=== PATIENT | male | born 1960 | race Caucasian/White ===

== ENCOUNTER 2017-04-08 18:24 | Emergency (ER) | payer OTHER ==
[~2017-04-08] VITALS: Ht 175.3 cm; Wt 105.0 kg
[~2017-04-08 18:24] MED LIST: ALEV220C; AMLO10 PO; GLUC1000 PO; GLUCOMETER XX; GLYB1TAB51 PO; LISI20 PO; METO50TA PO; OMEP20.62 PO; ST J81CH PO; SULF-154 PO
[2017-04-08 18:26] VITALS: BP 201/94; PULSE 98; RESP 16; TEMP 98.4; O2SAT 98
[2017-04-08] MEDS ORDERED: PLAV75TA29 PO (18:56)
[2017-04-08] MEDS ORDERED: GLIP10TA6 PO (18:56)
[2017-04-08] MEDS ORDERED: FURO1TAB60 PO (18:56)
[2017-04-08] MEDS ORDERED: ASPI-516 CHEW (18:56)
[2017-04-08] MEDS ORDERED: CLIN300C5 PO (18:56)
[2017-04-08] MEDS ORDERED: LISI40TA PO (18:56)
[2017-04-08] MEDS ORDERED: METF1000 PO (18:56)
[2017-04-08] MEDS ORDERED: OMEP20TA93 PO (18:56)
--- NOTE | 2017-04-08 19:01 | PD ---
HPI Chief Complaint: Skin Problem Time Seen by Provider: 18:39 Travel History International Travel<30 days: No Contact w/Intl Traveler<30days: No Traveled to known affect area: No History of Present Illness HPI 57-year-old male complains of cellulitis of the sole of the left foot. He's been on clindamycin. He denies fever he denies pain. He has to work tomorrow and wants to be sure there is no worsening of the infection. He reports using soap water to clean daily. Location skin. Timing constant. No modifying factor. PFSH Past Medical History Hx Anticoagulant Therapy: Yes (PLAVIX AND ASA) Arthritis: Yes Asthma: Yes (LONG TIME AGO) Cancer: No Cardiovascular Problems: Yes Diabetes: Yes Diminished Hearing: No Endocrine: No Genitourinary: Yes Immune Disorder: No Kidney Stones: Yes Musculoskeletal: Yes Neurologic: Yes Psychiatric: No Reproductive: No Respiratory: Yes Past Surgical History Eye Surgery: Yes (1971) Social History Alcohol Use: Yes (BEER, OCCASIONALLY) Tobacco Use: No Substance Use: No Allergies-Medications (Allergen,Severity, Reaction): Coded Allergies: codeine (Verified Allergy, Severe, HIVES, 04/08/17) sulfamethoxazole (Verified Allergy, Severe, HIVES, 04/08/17) trimethoprim (Verified Allergy, Severe, HIVES, 04/08/17) Reported Meds & Prescriptions Reported Meds & Active Scripts Active Reported Metformin (Metformin HCl) 1,000 Mg Tab 1,000 Mg PO BIDPC Aspirin 81 Mg Chew 81 Mg CHEW DAILY Plavix (Clopidogrel Bisulfate) 75 Mg Tab 75 Mg PO DAILY Lisinopril 40 Mg Tab 40 Mg PO DAILY Glipizide 10 Mg Tab 10 Mg PO DAILY Take 30 minutes before a meal Omeprazole 20 Mg Tab 20 Mg PO DAILY Lasix (Furosemide) 40 Mg Tab 40 Mg PO BID Clindamycin (Clindamycin HCl) 300 Mg Cap 300 Mg PO Q6H Review of Systems Except as stated in HPI: all other systems reviewed are Neg Physical Exam Narrative GENERAL: 57-year-old male well-nourished well-developed no acute distress SKIN: Warm and dry. Along the sole of the left foot there is about a 6 cm round somewhat ulcerative wound without purulent discharge or warmth or evidence of cellulitis otherwise. HEAD: Atraumatic. Normocephalic. EYES: Pupils equal and round. No scleral icterus. No injection or drainage. ENT: No nasal bleeding or discharge. Mucous membranes pink and moist. NECK: Trachea midline. No JVD. CARDIOVASCULAR: Regular rate and rhythm. RESPIRATORY: No accessory muscle use. Clear to auscultation. Breath sounds equal bilaterally. GASTROINTESTINAL: Abdomen soft, non-tender, nondistended. Hepatic and splenic margins not palpable. MUSCULOSKELETAL: Extremities without clubbing, cyanosis, or edema. No obvious deformities. NEUROLOGICAL: Awake and alert. No obvious cranial nerve deficits. Motor grossly within normal limits. Five out of 5 muscle strength in the arms and legs. Normal speech. PSYCHIATRIC: Appropriate mood and affect; insight and judgment normal. Data Data Last Documented VS Vital Signs Date Time Temp Pulse Resp B/P (MAP) Pulse Ox O2 Delivery O2 Flow Rate FiO2 04/08/17 19:08 90 16 179/93 (121) 98 04/08/17 18:26 98.4 Orders Orders Ed Discharge Order (04/08/17 19:04) [facility] Medical Decision Making Medical Screen Exam Complete: Yes Emergency Medical Condition: Yes Medical Record Reviewed: Yes Differential Diagnosis Cellulitis, abscess, sepsis, vascular disease Narrative Course The patient should continue taking clindamycin. The wound does not appear to be cellulitic at this time. Ongoing care instructions provided Diagnosis Primary Impression: Cellulitis Qualified Codes: L03.116 - Cellulitis of left lower limb Referrals: Christine Coker Jr., MD 2 days Disposition: 01 DISCHARGE HOME Condition: Stable Brando Shah MD Apr 08, 2017 19:01
[2017-04-08 19:08] VITALS: BP 179/93
== END 2017-04-08 19:16 | disposition home or self-care (01) ==
LOC: PHED 18:24
DX: L03.116 Cellulitis of left lower limb (principal); J45.909 Unspecified asthma, uncomplicated; E11.9 Type 2 diabetes mellitus without complications; Z79.01 Long term (current) use of anticoagulants
CPT/HCPCS: 99282

== ENCOUNTER 2017-05-10 11:47 | Inpatient (IN) | payer OTHER ==
[~2017-05-10] VITALS: Ht 177.8 cm; Wt 106.0 kg
[~2017-05-10 11:47] MED LIST changes: -ALEV220C; -AMLO10 PO; +ASPI-516 CHEW; +CLIN300C5 PO; +FURO1TAB60 PO; +GLIP10TA6 PO; -GLUC1000 PO; -GLUCOMETER XX; -GLYB1TAB51 PO; -LISI20 PO; +LISI40TA PO; +METF1000 PO; -METO50TA PO; -OMEP20.62 PO; +OMEP20TA93 PO; +PLAV75TA29 PO; -ST J81CH PO; -SULF-154 PO
[2017-05-10 11:48] VITALS: BP 160/70; PULSE 107; RESP 18; TEMP 98; O2SAT 98
[2017-05-10] MEDS ORDERED: SODIUM CHLORIDE 0.9% FLUSH 10 ML FLUSH IVF PRN (12:00)
[2017-05-10 12:32] VITALS: O2SAT 99
--- NOTE | 2017-05-10 12:37 | PD ---
HPI Chief Complaint: Skin Problem Time Seen by Provider: 11:59 Travel History International Travel<30 days: No Contact w/Intl Traveler<30days: No Traveled to known affect area: No History of Present Illness HPI This is a 57-year-old male with a history of diabetes presents emergency department for evaluation of bilateral foot ulcers right greater than left, the patient states that his toes had significantly changed in color for the past day and a half and rapidly worsening. He went to his travel registered nurse nicu Dr. Connors who referred him immediately to the emergency department with instructions to admit start antibiotics and consult inpatient podiatry. Patient states he is just having some aching in his feet, denies any fevers denies any discharge. States that he works on his feet all day and that he thinks the friction in his shoes is rubbing up against his feet. Denies any particular injury. States symptoms are rapidly worsening, bilateral feet, context and associated signs symptoms as above. PFSH Past Medical History Hx Anticoagulant Therapy: Yes (Plavix) Arthritis: Yes Asthma: Yes (LONG TIME AGO) Cancer: No Cardiovascular Problems: Yes (HTN) Diabetes: Yes Diminished Hearing: No Endocrine: No Genitourinary: Yes Headaches: Yes Hypertension: Yes Immune Disorder: No Kidney Stones: Yes Musculoskeletal: Yes Neurologic: Yes Psychiatric: No Reproductive: No Respiratory: Yes Past Surgical History Eye Surgery: Yes (1971) Other Surgery: Yes (angiograms) Social History Alcohol Use: Yes (BEER, OCCASIONALLY) Tobacco Use: No (quit 2012) Substance Use: No Allergies-Medications (Allergen,Severity, Reaction): Coded Allergies: codeine (Verified Allergy, Severe, HIVES, 05/10/17) sulfamethoxazole (Verified Allergy, Severe, HIVES, 05/10/17) trimethoprim (Verified Allergy, Severe, HIVES, 05/10/17) Reported Meds & Prescriptions Reported Meds & Active Scripts Active Reported Dicloxacillin (Dicloxacillin Sodium) 500 Mg Cap 500 Mg PO QID Naproxen 250 Mg Tab 250 Mg PO BID PRN Aleve Arthritis (Naproxen Sodium) 220 Mg Tab 220 Mg PO BID PRN K-Tab (Potassium Chloride) 20 Meq Tab 20 Meq PO BID Metformin (Metformin HCl) 1,000 Mg Tab 1,000 Mg PO BIDPC Aspirin 81 Mg Chew 81 Mg CHEW DAILY Plavix (Clopidogrel Bisulfate) 75 Mg Tab 75 Mg PO DAILY Lisinopril 40 Mg Tab 40 Mg PO DAILY Glipizide 10 Mg Tab 10 Mg PO DAILY Take 30 minutes before a meal Omeprazole 20 Mg Tab 20 Mg PO DAILY Lasix (Furosemide) 40 Mg Tab 40 Mg PO BID Review of Systems Except as stated in HPI: all other systems reviewed are Neg Physical Exam Narrative GENERAL: Well-developed well-nourished, no obvious distress, quite pleasant SKIN: There is breakdown in bilateral plantar surfaces over the MTP joints. Approximately 3 x 2 cm ulcers which appear fairly deep, smell of Pseudomonas, there is also skin changes of the third and fourth digit on the right toe consistent with wet gangrene. Cap refill is delayed in both toes. There is bluish discoloration of both of these toes. The left toes appear normal. There is some edema from the mid tibia distally. HEAD: Atraumatic. Normocephalic. EYES: Pupils equal and round. No scleral icterus. No injection or drainage. ENT: No nasal bleeding or discharge. Mucous membranes pink and moist. NECK: Trachea midline. No JVD. CARDIOVASCULAR: Regular rate and rhythm. No murmur appreciated. RESPIRATORY: No accessory muscle use. Clear to auscultation. Breath sounds equal bilaterally. GASTROINTESTINAL: Abdomen soft, non-tender, nondistended. Hepatic and splenic margins not palpable. MUSCULOSKELETAL: No obvious deformities. No clubbing. No cyanosis. No edema. NEUROLOGICAL: Awake and alert. No obvious cranial nerve deficits. Motor grossly within normal limits. Normal speech. PSYCHIATRIC: Appropriate mood and affect; insight and judgment normal. Data Data Last Documented VS Vital Signs Date Time Temp Pulse Resp B/P (MAP) Pulse Ox O2 Delivery O2 Flow Rate FiO2 05/10/17 12:32 99 Room Air 05/10/17 11:48 98.0 107 18 Orders Orders Complete Blood Count With Diff (05/10/17 12:00) Comprehensive Metabolic Panel (05/10/17 12:00) Westergren Sedimentation Rate (05/10/17 12:00) C-Reactive Protein (Crp) (05/10/17 12:00) Prothrombin Time / Inr (Pt) (05/10/17 12:00) Act Partial Throm Time (Ptt) (05/10/17 12:00) Blood Culture (05/10/17 12:00) Ecg Monitoring (05/10/17 12:00) Iv Access Insert/Monitor (05/10/17 12:00) Oximetry (05/10/17 12:00) Sodium Chloride 0.9% Flush (Ns Flush) (05/10/17 12:00) Foot, Complete ([id number]) (05/10/17 ) Chest, Single Ap (05/10/17 ) Type And Screen (05/10/17 12:37) Foot, Complete ([id number]) (05/10/17 ) Mri Foot W&W/O Contrast (05/10/17 ) Mri Foot W&W/O Contrast (05/10/17 ) Vancomycin Inj (Vancomycin Inj) (05/10/17 12:45) Piperacil-Tazo 4.5 Gm Premix (Zosyn 4.5 (05/10/17 12:45) Electrocardiogram (05/10/17 ) Consult Podiatry (05/10/17 ) (Hub Use Only)Inp Phy Cons/Ref (05/10/17 ) Admit Order (Ed Use Only) (05/10/17 ) Labs Laboratory Tests Test 05/10/17 12:23 05/10/17 12:28 Blood Urea Nitrogen 27 MG/DL Creatinine 0.84 MG/DL Random Glucose 127 MG/DL Total Protein 7.6 GM/DL Albumin 2.6 GM/DL Calcium Level 8.3 MG/DL Alkaline Phosphatase 69 U/L Aspartate Amino Transf (AST/SGOT) 28 U/L Alanine Aminotransferase (ALT/SGPT) 27 U/L Total Bilirubin 0.5 MG/DL Sodium Level 134 MEQ/L Potassium Level 4.9 MEQ/L Chloride Level 102 MEQ/L Carbon Dioxide Level 25.0 MEQ/L Anion Gap 7 MEQ/L Estimat Glomerular Filtration Rate 95 ML/MIN C-Reactive Protein 21.10 MG/DL White Blood Count 8.4 TH/MM3 Red Blood Count 3.61 MIL/MM3 Hemoglobin 11.3 GM/DL Hematocrit 32.9 % Mean Corpuscular Volume 91.1 FL Mean Corpuscular Hemoglobin 31.3 PG Mean Corpuscular Hemoglobin Concent 34.4 % Red Cell Distribution Width 13.7 % Platelet Count 227 TH/MM3 Mean Platelet Volume 8.1 FL Neutrophils (%) (Auto) 77.0 % Lymphocytes (%) (Auto) 11.9 % Monocytes (%) (Auto) 9.5 % Eosinophils (%) (Auto) 0.9 % Basophils (%) (Auto) 0.7 % Neutrophils # (Auto) 6.5 TH/MM3 Lymphocytes # (Auto) 1.0 TH/MM3 Monocytes # (Auto) 0.8 TH/MM3 Eosinophils # (Auto) 0.1 TH/MM3 Basophils # (Auto) 0.1 TH/MM3 CBC Comment DIFF FINAL Differential Comment Erythrocyte Sedimentation Rate 100 mm/hr Prothrombin Time 10.8 SEC Prothromb Time International Ratio 1.1 RATIO Activated Partial Thromboplast Time 24.2 SEC MDM Medical Decision Making Medical Screen Exam Complete: Yes Emergency Medical Condition: Yes Differential Diagnosis Osteomyelitis, dry gangrene, wet gangrene. Narrative Course Patient started on vancomycin and Zosyn, discussed with Dr. Soto, Dr. Alarcon to admit. Patient pain fairly well controlled. Last 24 hours Impressions Foot X-Ray 05/10/17 0000 Signed Impressions: Service Date/Time: Wednesday, May 10, 2017 12:53 - CONCLUSION: 1. No significant erosive bony change to suggest osteomyelitis as questioned. Meng Gatica MD Foot X-Ray 05/10/17 0000 Signed Impressions: Service Date/Time: Wednesday, May 10, 2017 12:53 - CONCLUSION: 1. No significant bony erosion to suggest osteomyelitis, as questioned. Meng Gatica MD Foot MRI 05/10/17 0000 Signed Impressions: Service Date/Time: Wednesday, May 10, 2017 13:58 - CONCLUSION: 1. Evidence of cellulitis in the plantar soft tissues about the 4th metatarsal bone. 2. 3. No MR evidence for osteomyelitis: 4. No signal abnormalities and no abnormal enhancement within the osseous structures of the forefoot or midfoot. Adan Camargo MD Foot MRI 05/10/17 0000 Signed Impressions: Service Date/Time: Wednesday, May 10, 2017 13:58 - CONCLUSION: 1. No evidence of cellulitis plantar soft tissues with some enhancing soft tissue extending to the interdigital space between the 2nd and 4th digits. 2. There is definite signal abnormality in the marrow of the proximal phalanx of the 3rd and 4th digits and possible subtle abnormality in the proximal phalanx of the 2nd digit, suspicious for osteomyelitis. Adan Camargo MD Chest X-Ray 05/10/17 0000 Signed Impressions: Service Date/Time: Wednesday, May 10, 2017 12:57 - CONCLUSION: 1. No acute cardiopulmonary disease. Meng Gatica MD Diagnosis Primary Impression: Foot osteomyelitis Admitting Information Admitting Physician Requests: Admit Condition: Stable Jeff Oscar MD May 10, 2017 12:37
[2017-05-10] MEDS ORDERED: ALEV220T14 PO (12:39)
[2017-05-10] MEDS ORDERED: DICL500 PO (12:39)
[2017-05-10] MEDS ORDERED: POTA1TAB4 PO (12:39)
[2017-05-10] MEDS ORDERED: NAPR250T4 PO (12:39)
[2017-05-10] MEDS ORDERED: PIPERACIL-TAZO 4.5 GM PREMIX 100 ML IV ONE (12:45)
[2017-05-10] MEDS ORDERED: VANCOMYCIN INJ 1,000 MG in SODIUM CHLOR 0.9% 250 ML INJ 250 ML IV ONE (12:45)
--- NOTE | 2017-05-10 13:18 | RADRPT ---
EXAM DATE/TIME: 05/10/2017 12:53 [facility] COMPARISON: No previous studies available for comparison. INDICATIONS : Left foot ulcers; possible osteomylitis. MEDICAL HISTORY : Hypertension. Diabetes. Foot ulcers. SURGICAL HISTORY : None. ENCOUNTER: Initial ACUITY: 1 month PAIN SCORE: 5/10 LOCATION: Left foot. FINDINGS: Three view examination of the left foot demonstrates no dislocation or fracture. No significant bony erosion. The tarsal bones appear intact. The interphalangeal and metatarsophalangeal joints are inta ct. The calcaneus is intact. Bony mineralization is normal. CONCLUSION: 1. No significant bony erosion to suggest osteomyelitis, as questioned. Meng Gatica MD on May 10, 2017 at 13:15 Board Certified Radiologist. This report was verified electronically.
--- NOTE | 2017-05-10 13:20 | RADRPT ---
EXAM DATE/TIME: 05/10/2017 12:57 [facility] COMPARISON: No previous studies available for comparison. INDICATIONS : Evaluate for pneumonia, pneumothorax, or communicable disease. Pre op for possible foot surgery. MEDICAL HISTORY : Hypertension. Diabetes. SURGICAL HISTORY : None. ENCOUNTER: Initial ACUITY: 1 day PAIN SCORE: 0/10 LOCATION: Bilateral chest FINDINGS: A single view of the chest demonstrates the lungs to be symmetrically aerated without evidence of mas s, infiltrate or effusion. The cardiomediastinal contours are unremarkable. Osseous structures are intact. CONCLUSION: 1. No acute cardiopulmonary disease. Meng Gatica MD on May 10, 2017 at 13:18 Board Certified Radiologist. This report was verified electronically.
--- NOTE | 2017-05-10 13:20 | RADRPT ---
EXAM DATE/TIME: 05/10/2017 12:53 [facility] COMPARISON: No previous studies available for comparison. INDICATIONS : Right foot ulcers; possible osteomylitis. MEDICAL HISTORY : Hypertension. Diabetes. Foot ulcers. SURGICAL HISTORY : None. ENCOUNTER: Initial ACUITY: 1 month PAIN SCORE: 6/10 LOCATION: Right foot. FINDINGS: Three view examination of the right foot demonstrates no dislocation or fracture. No significant eros tien bony change to suggest osteomyelitis. The tarsal bones appear intact. The interphalangeal and me tatarsophalangeal joints are intact. The calcaneus is intact. Bony mineralization is normal. CONCLUSION: 1. No significant erosive bony change to suggest osteomyelitis as questioned. Meng Gatica MD on May 10, 2017 at 13:17 Board Certified Radiologist. This report was verified electronically.
[2017-05-10 13:32] LABS: AUTOMATED NEUTROPHIL # 6.5 TH/MM3 (1.8-7.7); BASOPHIL # 0.1 TH/MM3 (0-0.2); BASOPHIL % 0.7 % (0.0-2.0); EOSINOPHIL # 0.1 TH/MM3 (0-0.4); EOSINOPHIL % 0.9 % (0.0-4.0); HEMATOCRIT 32.9 % (39.0-51.0); HEMOGLOBIN 11.3 GM/DL (13.0-17.0); LYMPH % 11.9 % (9.0-44.0); MEAN CELL VOLUME 91.1 FL (80.0-100.0); MEAN CORPUSCULAR HEMOGLOBIN 31.3 PG (27.0-34.0); MEAN CORPUSCULAR HGB CONC 34.4 % (32.0-36.0); MEAN PLATELET VOLUME 8.1 FL (7.0-11.0); MONO % 9.5 % (0.0-8.0); MONOCYTE # 0.8 TH/MM3 (0-0.9); PLATELET COUNT 227 TH/MM3 (150-450); RED BLOOD COUNT 3.61 MIL/MM3 (4.50-5.90); RED CELL DISTRIBUTION WIDTH 13.7 % (11.6-17.2); WHITE BLOOD COUNT 8.4 TH/MM3 (4.0-11.0)
[2017-05-10 13:36] LABS: INTERNATIONAL NORMALIZED RATIO 1.1 RATIO; PROTHROMBIN TIME - PATIENT 10.8 SEC (9.8-11.6)
[2017-05-10 13:54] LABS: ALBUMIN 2.6 GM/DL (3.4-5.0); ALT (GPT) 27 U/L (12-78); AST (GOT) 28 U/L (15-37); BLOOD UREA NITROGEN 27 MG/DL (7-18); CALCIUM 8.3 MG/DL (8.5-10.1); CHLORIDE 102 MEQ/L (98-107); CREATININE 0.84 MG/DL (0.60-1.30); GLOMERULAR FILTRATION RATE 95 ML/MIN (>89); GLUCOSE,RANDOM 127 MG/DL (74-106); SODIUM (NA) 134 MEQ/L (136-145)
[2017-05-10 13:55] LABS: ALKALINE PHOSPHATASE 69 U/L (45-117); TOTAL BILIRUBIN ADULT 0.5 MG/DL (0.2-1.0); TOTAL PROTEIN 7.6 GM/DL (6.4-8.2)
[2017-05-10] MEDS ORDERED: GADODIAMIDE PF 287 MG/ML 20 ML VIAL (for RAD MRI) IV PUSH ONE (15:03)
--- NOTE | 2017-05-10 15:27 | RADRPT ---
EXAM DATE/TIME: 05/10/2017 13:58 [facility] COMPARISON: FOOT LEFT COMPLETE ([id number]), May 10, 2017, 12:53. INDICATIONS : Osteomyelitis. Wound on plantar surface of left foot. CONTRAST: 20 cc Omniscan (gadodiamide) IV MEDICAL HISTORY : Hypertension. Diabetes mellitus type 2. Arthritis. Neuropathy. GERD. SURGICAL HISTORY : Strabismus correction. ENCOUNTER: Subsequent ACUITY: 1 day PAIN SCORE: 5/10 LOCATION: Left foot. TECHNIQUE: Multiplanar, multisequence MRI examination was performed without contrast and after the intravenous a dministration of gadolinium. FINDINGS: There is normal signal in the marrow of the osseous structures of the forefoot and midfoot. No abnor mal areas of marrow enhancement. There is some soft tissue thickening about the plantar aspect of th e lateral forefoot with some areas of skin thickening but without T2 prolongation. There is no abnor mal enhancement is focal subcutaneous thickening. Mild T2 prolongation in the soft tissue extending about the plantar 4th metacarpal bone characteristic of cellulitis. No signal abnormality in the adj acent bone. CONCLUSION: 1. Evidence of cellulitis in the plantar soft tissues about the 4th metatarsal bone. 2. 3. No MR evidence for osteomyelitis: 4. No signal abnormalities and no abnormal enhancement within the osseous structures of the forefoot or midfoot. Adan Camargo MD on May 10, 2017 at 15:21 Board Certified Radiologist. This report was verified electronically.
--- NOTE | 2017-05-10 15:46 | HHI.HP ---
HPI Service [facility] Hospitalists Primary Care Physician Christine Coker MD Admission Diagnosis Osteomyelitis of bilateral feet. Chief Complaint: nonhealing foot wound bilaterally send by Podiatry concern for OM Travel History International Travel<30 Days: No Contact w/Intl Traveler <30 Da: No Traveled to Known Affected Are: No History of Present Illness This is a 57 year old male patient with a past medical history which includes DM , HTN and GERD. Patient presents to the ER today after being sent by his senior investigator Dr. Frausto for concerns of OM of right foot. Patient reports that he started working at [employer] 03/29/17 which is a job that required walking and lifting, he then started to have blisters. Toward the end of March patient noticed that his left foot opened up then about a week later patient's right foot opened. Then patient's feet began to drain. Patient also had rigors which started last Tuesday and then night sweats Tuesday night. Tuesday night the patient noticed that his sock was covered in blood and his 3rd and 4th toes started to have a change in color. Patient has taken clindamycin and dicloxacillin. Patient was started on Dicloxacillin by patient's PCP Dr. Coker after reviewing results of wound culture. Patient reports minimal pain in his BLE as he has peripheral neuropathy. Patient's pain described as a dull ache. Patient denies N/V/D/C, fever. SOB or chest pain. Review of Systems Constitutional: COMPLAINS OF: Chills, DENIES: Fatigue, Fever Cardiovascular: COMPLAINS OF: Lower Extremity Edema, DENIES: Chest pain, Palpitations, Dyspnea on Exertion Gastrointestinal: DENIES: Abdominal pain, Constipation, Diarrhea, Nausea, Vomiting Neurologic: DENIES: Abnormal gait, Localized weakness, Speech Problems Psychiatric: DENIES: Anxiety, Confusion, Depression Past Family Social History Past Medical History DM type 2 with peripheral neuropathy, HTN and GERD Past Surgical History Bilateral lower extremity angiogram with balloon angioplasty on bilateral lower extremities 2016 eye surgery 1971 Reported Medications Dicloxacillin (Dicloxacillin Sodium) 500 Mg Cap 500 Mg PO QID Naproxen 250 Mg Tab 250 Mg PO BID PRN Aleve Arthritis (Naproxen Sodium) 220 Mg Tab 220 Mg PO BID PRN K-Tab (Potassium Chloride) 20 Meq Tab 20 Meq PO BID Metformin (Metformin HCl) 1,000 Mg Tab 1,000 Mg PO BIDPC Aspirin 81 Mg Chew 81 Mg CHEW DAILY Plavix (Clopidogrel Bisulfate) 75 Mg Tab 75 Mg PO DAILY Lisinopril 40 Mg Tab 40 Mg PO DAILY Glipizide 10 Mg Tab 10 Mg PO DAILY Take 30 minutes before a meal Omeprazole 20 Mg Tab 20 Mg PO DAILY Lasix (Furosemide) 40 Mg Tab 40 Mg PO BID Allergies: Coded Allergies: codeine (Verified Allergy, Severe, HIVES, 05/10/17) sulfamethoxazole (Verified Allergy, Severe, HIVES, 05/10/17) trimethoprim (Verified Allergy, Severe, HIVES, 05/10/17) Family History Mother had DM, lung CA Father at 80 years old had Myelodysplasia Social History Quit smoking 5 years ago smoked 0.5 PPD x 30 years denies ETOH use Physical Exam Vital Signs Vital Signs Date Time Temp Pulse Resp B/P (MAP) Pulse Ox O2 Delivery O2 Flow Rate FiO2 05/10/17 12:32 99 Room Air 05/10/17 11:48 98.0 107 18 160/70 (100) 98 Room Air Physical Exam GENERAL: This is a well-nourished, well-developed patient, in no apparent distress. SKIN: draining malodorous plantar surface bilateral feet open L 4 cm x 3.2 cm, R 5 cm x 3.7 cm erythema BLE foot to ankle HEAD: Atraumatic. Normocephalic. No temporal or scalp tenderness. EYES: Extraocular motions intact. No scleral icterus. No injection or drainage. CARDIOVASCULAR: Regular rate and rhythm RESPIRATORY: Clear to auscultation. Breath sounds equal bilaterally. GASTROINTESTINAL: Abdomen soft, non-tender, nondistended. MUSCULOSKELETAL: Extremities without clubbing, cyanosis, or edema. No joint tenderness, effusion, or edema noted. No calf tenderness. Negative Homans sign bilaterally. NEUROLOGICAL: Awake and alert. Motor and sensory grossly within normal limits. Five out of 5 muscle strength in all muscle groups. Normal speech. Laboratory Laboratory Tests Test 05/10/17 12:23 05/10/17 12:28 Blood Urea Nitrogen 27 Creatinine 0.84 Random Glucose 127 Total Protein 7.6 Albumin 2.6 Calcium Level 8.3 Alkaline Phosphatase 69 Aspartate Amino Transf (AST/SGOT) 28 Alanine Aminotransferase (ALT/SGPT) 27 Total Bilirubin 0.5 Sodium Level 134 Potassium Level 4.9 Chloride Level 102 Carbon Dioxide Level 25.0 Anion Gap 7 Estimat Glomerular Filtration Rate 95 C-Reactive Protein 21.10 White Blood Count 8.4 Red Blood Count 3.61 Hemoglobin 11.3 Hematocrit 32.9 Mean Corpuscular Volume 91.1 Mean Corpuscular Hemoglobin 31.3 Mean Corpuscular Hemoglobin Concent 34.4 Red Cell Distribution Width 13.7 Platelet Count 227 Mean Platelet Volume 8.1 Neutrophils (%) (Auto) 77.0 Lymphocytes (%) (Auto) 11.9 Monocytes (%) (Auto) 9.5 Eosinophils (%) (Auto) 0.9 Basophils (%) (Auto) 0.7 Neutrophils # (Auto) 6.5 Lymphocytes # (Auto) 1.0 Monocytes # (Auto) 0.8 Eosinophils # (Auto) 0.1 Basophils # (Auto) 0.1 CBC Comment DIFF FINAL Differential Comment Erythrocyte Sedimentation Rate 100 Prothrombin Time 10.8 Prothromb Time International Ratio 1.1 Activated Partial Thromboplast Time 24.2 Date/Time Source Procedure Growth Status 05/10/17 12:28 Blood Peripheral Aerobic Blood Culture Pending Received 05/10/17 12:28 Blood Peripheral Anaerobic Blood Culture Pending Received Result Diagram: 05/10/17 1228 05/10/17 1223 Imaging Last Impressions Foot X-Ray 05/10/17 0000 Signed Impressions: Service Date/Time: Wednesday, May 10, 2017 12:53 - CONCLUSION: 1. No significant erosive bony change to suggest osteomyelitis as questioned. Meng Gatica MD Chest X-Ray 05/10/17 0000 Signed Impressions: Service Date/Time: Wednesday, May 10, 2017 12:57 - CONCLUSION: 1. No acute cardiopulmonary disease. MD Lukas Andersoni VTE Risk Assessment Caprini VTE Risk Assessment: No/Low Risk (score <= 1) Caprini Risk Assessment Model Point Value = 1 Point Value = 2 Point Value = 3 Point Value = 5 Age 41-60 Minor surgery BMI > 25 kg/m2 Swollen legs Varicose veins or History of unexplained or recurrent spontaneous Oral contraceptives or hormone replacement Sepsis (< 1 month) Serious lung disease, including pneumonia (< 1 month) Abnormal pulmonary function Acute myocardial infarction Congestive heart failure (< 1 month) History of inflammatory bowel disease Medical patient at bed rest Age 61-74 Arthroscopic surgery Major open surgery (> 45 min) Laparoscopic surgery (> 45 min) Malignancy Confined to bed (> 72 hours) Immobilizing plaster cast Central venous access Age >= 75 History of VTE Family history of VTE Factor V Leiden Prothrombin 19138H Lupus anticoagulant Anticardiolipin antibodies Elevated serum homocysteine Heparin-induced thrombocytopenia Other congenital or acquired thrombophilia Stroke (< 1 month) Elective arthroplasty Hip, pelvis, or leg fracture Acute spinal cord injury (< 1 month) Prophylaxis Regimen Total Risk Factor Score Risk Level Prophylaxis Regimen 0-1 Low Early ambulation 2 Moderate Order ONE of the following: *Sequential Compression Device (SCD) *Heparin 5000 units SQ BID 3-4 Higher Order ONE of the following medications: *Heparin 5000 units SQ TID *Enoxaparin/Lovenox 40 mg SQ daily (WT < 150 kg, CrCl > 30 mL/min) *Enoxaparin/Lovenox 30 mg SQ daily (WT < 150 kg, CrCl > 10-29 mL/min) *Enoxaparin/Lovenox 30 mg SQ BID (WT < 150 kg, CrCl > 30 mL/min) AND/OR *Sequential Compression Device (SCD) 5 or more Highest Order ONE of the following medications: *Heparin 5000 units SQ TID (Preferred with Epidurals) *Enoxaparin/Lovenox 40 mg SQ daily (WT < 150 kg, CrCl > 30 mL/min) *Enoxaparin/Lovenox 30 mg SQ daily (WT < 150 kg, CrCl > 10-29 mL/min) *Enoxaparin/Lovenox 30 mg SQ BID (WT < 150 kg, CrCl > 30 mL/min) AND *Sequential Compression Device (SCD) Assessment and Plan Problem List: (1) Foot osteomyelitis ICD Codes: M86.9 - Osteomyelitis, unspecified Plan: Osteomyelitis Right foot Cellulitis BLE This is a 57 year old male patient with a past medical history which includes DM , HTN and GERD. Patient presents to the ER today after being sent by his senior investigator Dr. Frausto for concerns of OM of right foot. Patient reports that he started working at [employer] 03/29/17 which is a job that required walking and lifting, he then started to have blisters. Toward the end of March patient noticed that his left foot opened up then about a week later patient's right foot opened. Then patient's feet began to drain. Patient also had rigors which started last Tuesday and then night sweats Tuesday night. Tuesday night the patient noticed that his sock was covered in blood and his 3rd and 4th toes started to have a change in color. Patient has taken clindamycin and dicloxacillin. Patient was started on Dicloxacillin by patient's PCP Dr. Coker after reviewing results of wound culture. Patient reports minimal pain in his BLE as he has peripheral neuropathy. Patient's pain described as a dull ache. Patient denies N/V/D/C, fever. SOB or chest pain. C reactive protein 21.10 ESR 100 Consult podiatry Monico and Eva started by ER MD Wound cultures requested BC obtained MRI Left foot: Evidence of cellulitis in the plantar soft tissue about the 4th metatarsal bone. No MR evidence of osteomyelitis. No signal abnormalities and no abnormal enhancement within the osseous structure of the forefoot or midfoot. MRI R foot: No evidence of cellulitis plantar soft tissue with some enhancing soft tissue extending to the interdigital space between the 2nd and 4th digits. There is definite signal abnormality in the marrow of the proximal phalanx of the 3rd and 4th digits and possible subtle abnormality in the proximal phalanx of the 2nd digit, suspicious for osteomyelitis. GERD Continue home Omeprazole HTN Continue home Lisinopril 40 mg PO daily monitor BP DM type 2 SSI coverage accu checks ACHS diabetic diet PAD Patient on home Plavix and aspirin. Hold in light of possible surgery Lower extremity edema Lasix 40 mg PO BID Potassium 20 mg PO BID DVT prophylaxis with SCDs (2) GERD (gastroesophageal reflux disease) ICD Codes: K21.9 - Gastro-esophageal reflux disease without esophagitis (3) Hypertension ICD Codes: I10 - Hypertension Status: Chronic (4) Diabetes ICD Codes: E11.9 - Diabetes Status: Acute Physician Certification 2 Midnight Certification Type: Admission for Inpatient Services Order for Inpatient Services The services are ordered in accordance with Medicare regulations or non- Medicare payer requirements, as applicable. In the case of services not specified as inpatient-only, they are appropriately provided as inpatient services in accordance with the 2-midnight benchmark. Estimated LOS (days): 3 days is the estimated time the patient will need to remain in the hospital, assuming treatment plan goals are met and no additional complications. Post-Hospital Plan: Not yet determined Stackpole,Micki PA May 10, 2017 15:46
--- NOTE | 2017-05-10 15:58 | RADRPT ---
EXAM DATE/TIME: 05/10/2017 13:58 [facility] COMPARISON: FOOT RIGHT COMPLETE ([id number]), May 10, 2017, 12:53. INDICATIONS : Osteomyelitis. Wound on plantar surface of foot. CONTRAST: 20 cc Omniscan (gadodiamide) IV MEDICAL HISTORY : Hypertension. Diabetes mellitus type 2. Arthritis. GERD. Neuropathy. SURGICAL HISTORY : Strabismus correction. ENCOUNTER: Subsequent ACUITY: 1 day PAIN SCORE: 5/10 LOCATION: Right foot. TECHNIQUE: Multiplanar, multisequence MRI examination was performed without contrast and after the intravenous a dministration of gadolinium. FINDINGS: There is T2 prolongation in the soft tissues of the dorsolateral midfoot and in the plantar midfoot s uperficial to the 2nd metatarsus. On the postcontrast images, there is enhancement in the soft tissu es about the plantar soft tissue irregularity at. The enhancing soft tissues extend into the interdi gital space between the 2nd and 4th metatarsal bones.. There is also abnormal signal within the marrow of the proximal phalanx of the 2nd, 3rd, and 4th digi ts, characterized by T2 prolongation on the inversion recovery sagittal images. Cannot confirm the T 2 prolongation in the 2nd proximal phalanx on the coronal images. CONCLUSION: 1. No evidence of cellulitis plantar soft tissues with some enhancing soft tissue extending to the in terdigital space between the 2nd and 4th digits. 2. There is definite signal abnormality in the marrow of the proximal phalanx of the 3rd and 4th digi ts and possible subtle abnormality in the proximal phalanx of the 2nd digit, suspicious for osteomyel itis. Adan Camargo MD on May 10, 2017 at 15:25 Board Certified Radiologist. This report was verified electronically.
[2017-05-10] MEDS ORDERED: ACETAMINOPHEN 325 MG TAB PO PRN (16:15)
[2017-05-10] MEDS ORDERED: MAGNESIUM HYDROXIDE SUSP 30 ML CUP PO PRN (16:15)
[2017-05-10] MEDS ORDERED: ONDANSETRON HCL 4 MG/2 ML VIAL IVP PRN (16:15)
[2017-05-10] MEDS ORDERED: Vancomycin Consult Pharmacy 1 EA OTHER SCH (16:15)
[2017-05-10] MEDS ORDERED: NALOXONE HCL 0.4 MG/ML AMP IV PUSH PRN (16:15)
[2017-05-10] MEDS ORDERED: GLUCAGON 1 MG/ML VIAL OTHER PRN (16:30)
[2017-05-10] MEDS ORDERED: DEXTROSE 50% IN WATER 50 ML VIAL(D50) IV PUSH PRN (16:30)
[2017-05-10] MEDS: INSULIN ASPART SUPPLEMENTAL SCALE SQ SCH ×2 (17:00→21:00)
[2017-05-10 20:38] VITALS: BP 160/72; PULSE 100; RESP 20; TEMP 99; O2SAT 99
[2017-05-10] MEDS: DOCUSATE SODIUM 50 MG/SENNA 8.6 MG TAB PO SCH (21:00)
[2017-05-10] MEDS: FUROSEMIDE 40 MG TAB PO SCH (21:00)
[2017-05-10] MEDS ORDERED: TEMAZEPAM 15 MG CAP PO ONE (22:00)
[2017-05-10] MEDS: PIPERACIL-TAZO 3.375 GM PREMIX 50 ML IV SCH (22:37)
[2017-05-10] MEDS: SODIUM CHLORIDE 0.9% FLUSH 10 ML FLUSH IV FLUSH SCH (22:38)
[2017-05-10] MEDS: POTASSIUM CHLORIDE 20 MEQ CONTROLLED RELEASE TAB PO SCH (22:38)
[2017-05-10] MEDS: VANCOMYCIN INJ 1,750 MG in SODIUM CHLORID 0.9% 500 ML INJ 500 ML IV SCH (23:32)
[2017-05-11 00:43] VITALS: BP 129/59; PULSE 92; RESP 20; TEMP 98.3; O2SAT 97
[2017-05-11] MEDS: PIPERACIL-TAZO 3.375 GM PREMIX 50 ML IV SCH ×4 (02:31→19:46)
[2017-05-11] MEDS ORDERED: LACTATED RINGER'S 1000 ML IV PRN (04:45)
[2017-05-11 08:00] VITALS: BP 134/64; PULSE 86; RESP 17; TEMP 97; O2SAT 96
[2017-05-11] MEDS: INSULIN ASPART SUPPLEMENTAL SCALE SQ SCH ×4 (08:00→21:00)
--- NOTE | 2017-05-11 08:50 | PD.CONS ---
HPI Service cardiology Consult Requested By Reason for Consult PAD Primary Care Physician Christine Coker MD History of Present Illness 57 yo WM with DM, peripheral neuropathy, HTN, and followed in our office for PAD s/p angioplasty to bilateral lower extremities in 2017 and followed by podiatry regularly who presented yesterday with concerns for osteomyelitis of R foot. He had been working a new position starting one month ago requiring him to stand and walk more than usual. 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 Currently he feels a dull ache to R foot and chronic bilateral numbness attributed to diabetic neuropathy. He is compliant with plavix and asa. He denies chest pain, sob or palpitation. Patient states he has seen podiatry (Dr. Soto) and amputation of R toe is recommended. (Alba Morrow) Review of Systems Consitutional: DENIES: Fatigue, Fever, Chills, Weight gain, Weight loss Respiratory: DENIES: Cough, Snoring, Shortness of breath, Wheezing, Sputum production Cardiovascular: COMPLAINS OF: See HPI, DENIES: Chest pain, Palpitations, Syncope, Tachycardia Gastrointestinal: DENIES: Nausea, Vomiting, Change in bowel habits, Reflux, Bloody stools, Melena (Alba Morrow) Past Family Social History Allergies: Coded Allergies: codeine (Verified Allergy, Severe, HIVES, 05/10/17) sulfamethoxazole (Verified Allergy, Severe, HIVES, 05/10/17) trimethoprim (Verified Allergy, Severe, HIVES, 05/10/17) Past Medical History DM type 2 with peripheral neuropathy, HTN and GERD Past Surgical History Bilateral lower extremity angiogram with balloon angioplasty on bilateral lower extremities 2016 eye surgery 1972 Reported Medications Reported Meds & Active Scripts Active Reported Dicloxacillin (Dicloxacillin Sodium) 500 Mg Cap 500 Mg PO QID Naproxen 250 Mg Tab 250 Mg PO BID PRN Aleve Arthritis (Naproxen Sodium) 220 Mg Tab 220 Mg PO BID PRN K-Tab (Potassium Chloride) 20 Meq Tab 20 Meq PO BID Metformin (Metformin HCl) 1,000 Mg Tab 1,000 Mg PO BIDPC Aspirin 81 Mg Chew 81 Mg CHEW DAILY Plavix (Clopidogrel Bisulfate) 75 Mg Tab 75 Mg PO DAILY Lisinopril 40 Mg Tab 40 Mg PO DAILY Glipizide 10 Mg Tab 10 Mg PO DAILY Take 30 minutes before a meal Omeprazole 20 Mg Tab 20 Mg PO DAILY Lasix (Furosemide) 40 Mg Tab 40 Mg PO BID Active Ordered Medications Current Medications Medications (Trade) Dose Ordered Sig/Jack Route Start Time Stop Time Status Last Admin (Lasix) 40 mg BID PO 05/10/17 21:00 (KCl) 20 meq BID PO 05/10/17 21:00 05/10/17 22:38 (NS Flush) 2 ml UNSCH PRN IV FLUSH 05/10/17 16:15 (NS Flush) 2 ml BID IV FLUSH 05/10/17 21:00 05/10/17 22:38 (Tylenol) 650 mg Q4H PRN PO 05/10/17 16:15 (Zofran Inj) 4 mg Q6H PRN IVP 05/10/17 16:15 (Narcan Inj) 0.4 mg UNSCH PRN IV PUSH 05/10/17 16:15 (Amie-Colace) 1 tab BID PO 05/10/17 21:00 (Milk Of Magnray Liq) 30 ml Q12H PRN PO 05/10/17 16:15 Pharmacy Profile Note 0 ml @ 0 mls/hr UNSCH OTHER 05/10/17 16:15 Piperacillin Sod/ Tazobactam Sod 50 ml @ 100 mls/hr Q6H IV 05/10/17 20:00 05/11/17 02:31 (D50w (Vial) Inj) 50 ml UNSCH PRN IV PUSH 05/10/17 16:30 (Glucagon Inj) 1 mg UNSCH PRN OTHER 05/10/17 16:30 (NovoLOG SUPPLEMENTAL SCALE) 1 ACHS SLIDING SCALE SQ 05/10/17 17:00 (Prinivil) 40 mg DAILY PO 05/11/17 09:00 (Protonix) 20 mg DAILY PO 05/11/17 09:00 Vancomycin HCl 1750 mg/Sodium Chloride 517.5 ml @ 250 mls/hr Q12H IV 05/10/17 22:00 05/10/17 23:32 Miscellaneous Information SPECIFIC LAB TO BE DRAWN:VANCO TROUGH DATE TO BE DRSusy.. ONCE ONCE .XX 05/11/17 21:45 05/11/17 21:46 Lactated Ringer's 1,000 ml @ 30 mls/hr Q24H PRN IV 05/11/17 04:45 05/14/17 04:44 Family History Mother had DM, lung CA Father at 80 years old had Myelodysplasia Social History Quit smoking 5 years ago smoked 0.5 PPD x 30 years denies ETOH use (Alba Morrow) Physical Exam Vital Signs Vital Signs Date Time Temp Pulse Resp B/P (MAP) Pulse Ox O2 Delivery O2 Flow Rate FiO2 05/11/17 00:43 98.3 92 20 129/59 (82) 97 05/10/17 20:38 99.0 100 20 160/72 (101) 99 05/10/17 17:01 05/10/17 12:32 99 Room Air 05/10/17 11:48 98.0 107 18 160/70 (100) 98 Room Air Physical Exam GENERAL: SKIN: Warm and dry. HEAD: Atraumatic. Normocephalic. EYES: Pupils equal and round. No scleral icterus. ENT: No nasal bleeding or discharge. NECK: Trachea midline. No JVD. CARDIOVASCULAR: Regular rate and rhythm. no murmurs RESPIRATORY: No accessory muscle use. Clear to auscultation. Breath sounds equal bilaterally. GASTROINTESTINAL: Abdomen soft, non-tender, nondistended. MUSCULOSKELETAL: Bilateral feet bandaged, Lower extremities below knee appear dusky in color. NEUROLOGICAL: Awake and alert. No obvious cranial nerve deficits. Normal speech. PSYCHIATRIC: Appropriate mood and affect; insight and judgment normal. Laboratory Laboratory Tests Test 05/10/17 12:23 05/10/17 12:28 Blood Urea Nitrogen 27 Creatinine 0.84 Random Glucose 127 Total Protein 7.6 Albumin 2.6 Calcium Level 8.3 Alkaline Phosphatase 69 Aspartate Amino Transf (AST/SGOT) 28 Alanine Aminotransferase (ALT/SGPT) 27 Total Bilirubin 0.5 Sodium Level 134 Potassium Level 4.9 Chloride Level 102 Carbon Dioxide Level 25.0 Anion Gap 7 Estimat Glomerular Filtration Rate 95 C-Reactive Protein 21.10 White Blood Count 8.4 Red Blood Count 3.61 Hemoglobin 11.3 Hematocrit 32.9 Mean Corpuscular Volume 91.1 Mean Corpuscular Hemoglobin 31.3 Mean Corpuscular Hemoglobin Concent 34.4 Red Cell Distribution Width 13.7 Platelet Count 227 Mean Platelet Volume 8.1 Neutrophils (%) (Auto) 77.0 Lymphocytes (%) (Auto) 11.9 Monocytes (%) (Auto) 9.5 Eosinophils (%) (Auto) 0.9 Basophils (%) (Auto) 0.7 Neutrophils # (Auto) 6.5 Lymphocytes # (Auto) 1.0 Monocytes # (Auto) 0.8 Eosinophils # (Auto) 0.1 Basophils # (Auto) 0.1 CBC Comment DIFF FINAL Differential Comment Erythrocyte Sedimentation Rate 100 Prothrombin Time 10.8 Prothromb Time International Ratio 1.1 Activated Partial Thromboplast Time 24.2 Date/Time Source Procedure Growth Status 05/10/17 12:28 Blood Peripheral Aerobic Blood Culture Pending Received 05/10/17 12:28 Blood Peripheral Anaerobic Blood Culture Pending Received 05/10/17 18:37 Wound Foot Gram Stain Pending Received 05/10/17 18:37 Wound Foot Wound Culture Pending Received (Alba Morrow) Result Diagram: 05/10/17 1228 05/10/17 1223 Imaging Last 48 hours Impressions Foot X-Ray 05/10/17 0000 Signed Impressions: Service Date/Time: Wednesday, May 10, 2017 12:53 - CONCLUSION: 1. No significant erosive bony change to suggest osteomyelitis as questioned. Meng Gatica MD Foot X-Ray 05/10/17 0000 Signed Impressions: Service Date/Time: Wednesday, May 10, 2017 12:53 - CONCLUSION: 1. No significant bony erosion to suggest osteomyelitis, as questioned. Meng Gatica MD Foot MRI 05/10/17 0000 Signed Impressions: Service Date/Time: Wednesday, May 10, 2017 13:58 - CONCLUSION: 1. Evidence of cellulitis in the plantar soft tissues about the 4th metatarsal bone. 2. 3. No MR evidence for osteomyelitis: 4. No signal abnormalities and no abnormal enhancement within the osseous structures of the forefoot or midfoot. Adan Camargo MD Foot MRI 05/10/17 0000 Signed Impressions: Service Date/Time: Wednesday, May 10, 2017 13:58 - CONCLUSION: 1. No evidence of cellulitis plantar soft tissues with some enhancing soft tissue extending to the interdigital space between the 2nd and 4th digits. 2. There is definite signal abnormality in the marrow of the proximal phalanx of the 3rd and 4th digits and possible subtle abnormality in the proximal phalanx of the 2nd digit, suspicious for osteomyelitis. Adan Camargo MD Chest X-Ray 05/10/17 0000 Signed Impressions: Service Date/Time: Wednesday, May 10, 2017 12:57 - CONCLUSION: 1. No acute cardiopulmonary disease. Meng Gatica MD (Alba Morrow) Assessment and Plan Problem List: (1) PAD (peripheral artery disease) ICD Codes: I73.9 - Peripheral vascular disease, unspecified (2) Foot osteomyelitis ICD Codes: M86.9 - Osteomyelitis, unspecified (3) Cellulitis and abscess ICD Codes: L02.91 - Cutaneous abscess, unspecified; L03.90 - Cellulitis and abscess Status: Acute Assessment and Plan 57 yo WM with DM, peripheral neuropathy, HTN, and followed in our office for PAD s/p angioplasty to bilateral lower extremities in 2016 and followed by podiatry regularly who presented yesterday with concerns for osteomyelitis of R foot. He had been working a new position starting one month ago requiring him to stand and walk more than usual. 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 PAD- s/p 09/2016: angioplasty to left SFA and left anterior tibial 11/2016: angioplasty to right mid-SFA current concerns for osteomyelitis to R foot (3rd,4th phalanx) tentatively plan for repeat peripheral angiogram on tuesday. hold off on CTA for concerns of contrast overloading. ok to proceed with amputation if podiatry feels he is low risk for wound infection after amputation. (Alba Morrow) Assessment and Plan severe PAD confirmed by physical examination and noninvasive imaging. plan for peripheral angiogram on Tuesday am npo p mn thjamir (Fabio Barnes MD) Alba Morrow May 11, 2017 08:50 Fabio Barnes MD May 11, 2017 16:36
[2017-05-11 08:53] LABS: AUTOMATED NEUTROPHIL # 5.5 TH/MM3 (1.8-7.7); BASOPHIL % 0.5 % (0.0-2.0); EOSINOPHIL # 0.1 TH/MM3 (0-0.4); EOSINOPHIL % 1.7 % (0.0-4.0); HEMATOCRIT 31.4 % (39.0-51.0); HEMOGLOBIN 10.8 GM/DL (13.0-17.0); LYMPH % 16.8 % (9.0-44.0); LYMPHOCYTE # 1.3 TH/MM3 (1.0-4.8); MEAN CORPUSCULAR HEMOGLOBIN 31.7 PG (27.0-34.0); MEAN CORPUSCULAR HGB CONC 34.5 % (32.0-36.0); MEAN PLATELET VOLUME 7.5 FL (7.0-11.0); MONO % 9.6 % (0.0-8.0); MONOCYTE # 0.7 TH/MM3 (0-0.9); NEUT % 71.4 % (16.0-70.0); PLATELET COUNT 254 TH/MM3 (150-450); RED BLOOD COUNT 3.42 MIL/MM3 (4.50-5.90); RED CELL DISTRIBUTION WIDTH 13.7 % (11.6-17.2); WHITE BLOOD COUNT 7.6 TH/MM3 (4.0-11.0)
[2017-05-11] MEDS: VANCOMYCIN INJ 1,750 MG in SODIUM CHLORID 0.9% 500 ML INJ 500 ML IV SCH ×2 (08:54→21:38)
[2017-05-11] MEDS: LISINOPRIL 20 MG TAB PO SCH (08:54)
[2017-05-11] MEDS: PANTOPRAZOLE SOD 20 MG DELAYED RELEASE TAB PO SCH (08:54)
[2017-05-11] MEDS: SODIUM CHLORIDE 0.9% FLUSH 10 ML FLUSH IV FLUSH SCH ×2 (08:55→21:28)
[2017-05-11] MEDS: FUROSEMIDE 40 MG TAB PO SCH ×2 (08:56→21:00)
[2017-05-11] MEDS: DOCUSATE SODIUM 50 MG/SENNA 8.6 MG TAB PO SCH ×2 (08:56→21:27)
[2017-05-11] MEDS: POTASSIUM CHLORIDE 20 MEQ CONTROLLED RELEASE TAB PO SCH ×2 (08:57→21:27)
[2017-05-11] MEDS ORDERED: NON-FORMULARY DRUG (Omeprazole 20 MG) PO SCH (09:00)
[2017-05-11] MEDS ORDERED: NON-FORMULARY DRUG (Lisinopril 40 MG) PO SCH (09:00)
[2017-05-11 09:25] LABS: BICARBONATE 27.3 MEQ/L (21.0-32.0); CALCIUM 8.9 MG/DL (8.5-10.1); CREATININE 0.73 MG/DL (0.60-1.30)
--- NOTE | 2017-05-11 09:41 | RADRPT ---
EXAM DATE/TIME: 05/10/2017 00:00 [facility] COMPARISON: MRI FOOT RIGHT W & W/O CONTRAST, May 10, 2017, 13:58. INDICATIONS : Osteomyelitis of bilateral feet TECHNIQUE: Five-station segmental examination of the lower extremities was performed. Pulsed-cuff waveform tracings and pressures were recorded. Ankle-brachial indices and toe-brachial indices were calculated. PRESSURES (mmHg): Brachial (arm): Right IV SITE Left 142 Lower Thigh: Right 169 Left 169 Calf: Right 166 Left 136 Ankle: Right 95 Left 134 Toe: Right 85 Left 98 RENÉE: Right 0.67 Left 0.94 TBI: Right 0.60 Left 0.69 PULSED CUFF WAVEFORMS: There is a diminished waveforms throughout both lower extremities. CONCLUSION: 1. Right le. The RENÉE is significantly diminished. The TBI is moderately lower as well. Exam would suggest signi ficant vascular disease. 3. 4. Left le. The RENÉE and TBI are within the range of normal however the diminished waveform is somewhat concern ing for underlying vascular disease. 6. CT angiography and runoff would be warranted for further assessment. Brando Gamboa MD on May 11, 2017 at 9:37 Board Certified Radiologist. This report was verified electronically.
--- NOTE | 2017-05-11 11:37 | HHI.PR ---
Subjective Remarks Pt overall is feeling well. He denies any significant pain RLE swelling is stable Afebrile Vitals are stable. Objective Vitals Vital Signs Date Time Temp Pulse Resp B/P (MAP) Pulse Ox O2 Delivery O2 Flow Rate FiO2 05/11/17 08:00 97.0 86 17 134/64 (87) 96 05/11/17 00:43 98.3 92 20 129/59 (82) 97 05/10/17 20:38 99.0 100 20 160/72 (101) 99 05/10/17 17:01 05/10/17 12:32 99 Room Air 05/10/17 11:48 98.0 107 18 160/70 (100) 98 Room Air Result Diagram: 05/11/17 0759 05/11/17 0759 Other Results Laboratory Tests Test 05/10/17 12:23 05/10/17 12:28 05/11/17 07:59 Blood Urea Nitrogen 27 MG/DL 18 MG/DL Creatinine 0.84 MG/DL 0.73 MG/DL Random Glucose 127 MG/DL 143 MG/DL Total Protein 7.6 GM/DL Albumin 2.6 GM/DL Calcium Level 8.3 MG/DL 8.9 MG/DL Alkaline Phosphatase 69 U/L Aspartate Amino Transf (AST/SGOT) 28 U/L Alanine Aminotransferase (ALT/SGPT) 27 U/L Total Bilirubin 0.5 MG/DL Sodium Level 134 MEQ/L 135 MEQ/L Potassium Level 4.9 MEQ/L 4.5 MEQ/L Chloride Level 102 MEQ/L 102 MEQ/L Carbon Dioxide Level 25.0 MEQ/L 27.3 MEQ/L Anion Gap 7 MEQ/L 6 MEQ/L Estimat Glomerular Filtration Rate 95 ML/MIN 111 ML/MIN C-Reactive Protein 21.10 MG/DL White Blood Count 8.4 TH/MM3 7.6 TH/MM3 Red Blood Count 3.61 MIL/MM3 3.42 MIL/MM3 Hemoglobin 11.3 GM/DL 10.8 GM/DL Hematocrit 32.9 % 31.4 % Mean Corpuscular Volume 91.1 FL 92.0 FL Mean Corpuscular Hemoglobin 31.3 PG 31.7 PG Mean Corpuscular Hemoglobin Concent 34.4 % 34.5 % Red Cell Distribution Width 13.7 % 13.7 % Platelet Count 227 TH/MM3 254 TH/MM3 Mean Platelet Volume 8.1 FL 7.5 FL Neutrophils (%) (Auto) 77.0 % 71.4 % Lymphocytes (%) (Auto) 11.9 % 16.8 % Monocytes (%) (Auto) 9.5 % 9.6 % Eosinophils (%) (Auto) 0.9 % 1.7 % Basophils (%) (Auto) 0.7 % 0.5 % Neutrophils # (Auto) 6.5 TH/MM3 5.5 TH/MM3 Lymphocytes # (Auto) 1.0 TH/MM3 1.3 TH/MM3 Monocytes # (Auto) 0.8 TH/MM3 0.7 TH/MM3 Eosinophils # (Auto) 0.1 TH/MM3 0.1 TH/MM3 Basophils # (Auto) 0.1 TH/MM3 0.0 TH/MM3 CBC Comment DIFF FINAL DIFF FINAL Differential Comment Erythrocyte Sedimentation Rate 100 mm/hr Prothrombin Time 10.8 SEC Prothromb Time International Ratio 1.1 RATIO Activated Partial Thromboplast Time 24.2 SEC Imaging Last Impressions Foot X-Ray 05/10/17 0000 Signed Impressions: Service Date/Time: Wednesday, May 10, 2017 12:53 - CONCLUSION: 1. No significant erosive bony change to suggest osteomyelitis as questioned. Meng Gatica MD Foot MRI 05/10/17 0000 Signed Impressions: Service Date/Time: Wednesday, May 10, 2017 13:58 - CONCLUSION: 1. Evidence of cellulitis in the plantar soft tissues about the 4th metatarsal bone. 2. 3. No MR evidence for osteomyelitis: 4. No signal abnormalities and no abnormal enhancement within the osseous structures of the forefoot or midfoot. Adan Camargo MD Chest X-Ray 05/10/17 0000 Signed Impressions: Service Date/Time: Wednesday, May 10, 2017 12:57 - CONCLUSION: 1. No acute cardiopulmonary disease. Meng Gatica MD Last Impressions Foot X-Ray 05/10/17 0000 Signed Impressions: Service Date/Time: Wednesday, May 10, 2017 12:53 - CONCLUSION: 1. No significant erosive bony change to suggest osteomyelitis as questioned. Meng Gatica MD Chest X-Ray 05/10/17 0000 Signed Impressions: Service Date/Time: Wednesday, May 10, 2017 12:57 - CONCLUSION: 1. No acute cardiopulmonary disease. Meng Gatica MD Objective Remarks General: NAD, AAOx3 Chest: CTA Cardiac: Regular Abd: +BS, soft ND/NT Ext: Bilateral feet are bandaged which are c/d/i, RLE edema A/P Problem List: (1) Foot osteomyelitis ICD Codes: M86.9 - Osteomyelitis, unspecified Plan: Osteomyelitis Right foot Cellulitis BLE - This is a 57 year old male patient with DM, HTN and GERD. - Patient presents to the ER today after being sent by his oil prospecting observer Dr. Frausto for concerns of OM of right foot. Patient reports that he started working at [employer] 03/29/17 which is a job that required walking and lifting, he then started to have blisters. Toward the end of March patient noticed that his left foot opened up then about a week later patient's right foot opened. Then patient's feet began to drain. Patient also had rigors which started last Tuesday and then night sweats Tuesday night. Tuesday night the patient noticed that his sock was covered in blood and his 3rd and 4th toes started to have a change in color. Patient has taken clindamycin and dicloxacillin. Patient was started on Dicloxacillin by patient's PCP Dr. Coker after reviewing results of wound culture. - C reactive protein 21.10 - ESR 100 - MRI Left foot: Evidence of cellulitis in the plantar soft tissue about the 4th metatarsal bone. No MR evidence of osteomyelitis. No signal abnormalities and no abnormal enhancement within the osseous structure of the forefoot or midfoot. - MRI R foot: No evidence of cellulitis plantar soft tissue with some enhancing soft tissue extending to the interdigital space between the 2nd and 4th digits. There is definite signal abnormality in the marrow of the proximal phalanx of the 3rd and 4th digits and possible subtle abnormality in the proximal phalanx of the 2nd digit, suspicious for osteomyelitis. - Podiatry is following and pt is planned for surgical intervention later today - Pt was given Vanco and Zosyn in the ER - Wound cultures obtained and are pending. - BC (05/10) with NGTD GERD - Continue home Omeprazole HTN - Continue home Lisinopril 40 mg PO daily - Monitor BP DM type 2 - SSI coverage - Accu checks ACHS - Diabetic diet PAD - Patient on home Plavix and aspirin, on hold in light of surgery Lower extremity edema - Lasix 40 mg PO BID - Potassium 20 mg PO BID DVT prophylaxis with SCDs (2) GERD (gastroesophageal reflux disease) ICD Codes: K21.9 - Gastro-esophageal reflux disease without esophagitis (3) Hypertension ICD Codes: I10 - Hypertension Status: Chronic (4) Diabetes ICD Codes: E11.9 - Diabetes Status: Acute Assessment and Plan Patient examined. Assessment and plan formulated with Diann Anaya PA-C. I agree with the above. diabetic foot ulcers and osteo. podiatry to OR today. cont abx. f/u cx's.supportive care. Diann Anaya May 11, 2017 11:37 Edvin Alarcon MD May 11, 2017 11:51
[2017-05-11 12:00] VITALS: BP 153/67; PULSE 91; RESP 17; TEMP 95.7; O2SAT 99
[2017-05-11] MEDS ORDERED: PROPOFOL 200 MG/20 ML AMP IV ONE (12:00)
[2017-05-11] MEDS ORDERED: ONDANSETRON HCL 4 MG/2 ML VIAL IV ONE (12:00)
[2017-05-11] MEDS ORDERED: ePHEDrine/NS 25 MG/5 ML SYRINGE IV ONE (12:00)
[2017-05-11] MEDS ORDERED: PHENYLEPH/NS 1000 MCG/10 ML SYR IV ONE (12:00)
[2017-05-11] MEDS ORDERED: LIDOCAINE HCL 1% PF 5 ML SYRINGE OTHER ONE (12:00)
--- NOTE | 2017-05-11 15:56 | EKG ---
Date Performed: 05/10/2017 Time Performed: 13:11:12 PTAGE: 57 years EKG: SINUS TACHYCARDIA ABNORMAL RHYTHM ECG NO PREVIOUS TRACING DOCTOR: Fabio Barnes Interpretating Date/Time 05/11/2017 15:54:03
[2017-05-11 16:00] VITALS: BP 145/68; PULSE 93; RESP 17; TEMP 96.4; O2SAT 100
[2017-05-11 18:00] VITALS: PULSE 92
[2017-05-11] MEDS ORDERED: NEOMYCIN/POLYMYXIN 1 ML G.U. IRRIGANT ONE (18:00)
[2017-05-11] MEDS ORDERED: BUPIVACAINE HCL PF 0.25% 30 ML VIAL ONE (18:02)
[2017-05-11] MEDS ORDERED: BACITRACIN TOP OINT 15 GM TUBE ONE (18:02)
[2017-05-11] MEDS ORDERED: DO NOT ADM ANY ANTICOAGULANT DRUGS PRN (19:34)
--- NOTE | 2017-05-11 19:49 | HHI.PR ---
Immediate Post Op Note Procedure Date: May 11, 2017 Pre Op Diagnosis: BL foot ulcer, OM of rt 3rd digit possible rt 2 4 digit OM, abscess rt foot Post Op Diagnosis: same Surgeon: Ángel Doran Panelbeater(s): scrub Procedure: left foot ulcer excisional sharp debridement. right 3rd digit amputation 2 4 proximal phalanx base bone biopsy foot I and D rt Findings: left foot pretty good bleeding no obvious deep infection right foot poor blood flow, severe deep 2 3 interspace infection with plantar fat pad necrosis Complications: none Specimen(s) removed: bone bx x2 2 4 digits, deep bone cx and deep soft cx right foot Estimated blood loss: less 30 mL Anesthesia: General, Local Drains: Other Tourniquet time (min at mmHg) 20 min rt ankle tourniquet Patient to: PACU Patient Condition: Good Implant/Devices: SEE IMPLANT LOG (if applicable) Date/Time of Procedure: SEE SURGICAL CARE RECORD Ángel Doran DPM May 11, 2017 19:48
[2017-05-11 20:00] VITALS: BP 133/66; PULSE 89; RESP 17; TEMP 97.1; O2SAT 98
[2017-05-11] MEDS ORDERED: PHARMACY ORDERED LAB ONE (21:45)
[2017-05-11] MEDS ORDERED: TEMAZEPAM 15 MG CAP PO PRN (22:30)
[2017-05-12] VITALS: BP 118/58; PULSE 82; RESP 17; TEMP 97.1; O2SAT 95
[2017-05-12] MEDS: PIPERACIL-TAZO 3.375 GM PREMIX 50 ML IV SCH ×4 (02:23→21:08)
[2017-05-12 04:00] VITALS: BP 114/60; PULSE 87; RESP 17; TEMP 97.2; O2SAT 99
[2017-05-12 07:31] LABS: AUTOMATED NEUTROPHIL # 4.7 TH/MM3 (1.8-7.7); BASOPHIL % 0.5 % (0.0-2.0); EOSINOPHIL # 0.1 TH/MM3 (0-0.4); EOSINOPHIL % 1.3 % (0.0-4.0); HEMATOCRIT 27.2 % (39.0-51.0); HEMOGLOBIN 9.4 GM/DL (13.0-17.0); LYMPH % 16.7 % (9.0-44.0); LYMPHOCYTE # 1.1 TH/MM3 (1.0-4.8); MEAN CELL VOLUME 90.8 FL (80.0-100.0); MEAN CORPUSCULAR HEMOGLOBIN 31.4 PG (27.0-34.0); MEAN CORPUSCULAR HGB CONC 34.6 % (32.0-36.0); MEAN PLATELET VOLUME 7.5 FL (7.0-11.0); MONO % 9.1 % (0.0-8.0); MONOCYTE # 0.6 TH/MM3 (0-0.9); NEUT % 72.4 % (16.0-70.0); PLATELET COUNT 224 TH/MM3 (150-450); RED CELL DISTRIBUTION WIDTH 13.6 % (11.6-17.2); WHITE BLOOD COUNT 6.4 TH/MM3 (4.0-11.0)
[2017-05-12 07:42] LABS: BICARBONATE 26.5 MEQ/L (21.0-32.0); CREATININE 0.81 MG/DL (0.60-1.30)
[2017-05-12] MEDS: FUROSEMIDE 40 MG TAB PO SCH ×2 (07:58→21:00)
[2017-05-12] MEDS: POTASSIUM CHLORIDE 20 MEQ CONTROLLED RELEASE TAB PO SCH ×2 (07:58→21:00)
[2017-05-12] MEDS: SODIUM CHLORIDE 0.9% FLUSH 10 ML FLUSH IV FLUSH SCH ×2 (07:58→21:09)
[2017-05-12] MEDS: DOCUSATE SODIUM 50 MG/SENNA 8.6 MG TAB PO SCH ×2 (07:59→21:09)
[2017-05-12 08:00] VITALS: BP 138/67; PULSE 98; RESP 18; TEMP 98.3; O2SAT 96
[2017-05-12] MEDS: PANTOPRAZOLE SOD 20 MG DELAYED RELEASE TAB PO SCH (08:00)
[2017-05-12] MEDS: LISINOPRIL 20 MG TAB PO SCH (08:00)
[2017-05-12] MEDS: INSULIN ASPART SUPPLEMENTAL SCALE SQ SCH ×4 (08:01→21:07)
--- NOTE | 2017-05-12 08:29 | PD.CARD.PN ---
Subjective Subjective Remarks feeling well. no limb pain, no chest pain or sob. s/p toe amputation yesterday. Objective Medications Current Medications Medications (Trade) Dose Ordered Sig/Jack Route Start Time Stop Time Status Last Admin (Lasix) 40 mg BID PO 05/10/17 21:00 (KCl) 20 meq BID PO 05/10/17 21:00 05/11/17 21:27 (NS Flush) 2 ml UNSCH PRN IV FLUSH 05/10/17 16:15 (NS Flush) 2 ml BID IV FLUSH 05/10/17 21:00 05/12/17 07:58 (Tylenol) 650 mg Q4H PRN PO 05/10/17 16:15 (Zofran Inj) 4 mg Q6H PRN IVP 05/10/17 16:15 (Narcan Inj) 0.4 mg UNSCH PRN IV PUSH 05/10/17 16:15 (Amie-Colace) 1 tab BID PO 05/10/17 21:00 05/12/17 07:59 (Milk Of Linnea Chavez) 30 ml Q12H PRN PO 05/10/17 16:15 Pharmacy Profile Note 0 ml @ 0 mls/hr UNSCH OTHER 05/10/17 16:15 Piperacillin Sod/ Tazobactam Sod 50 ml @ 100 mls/hr Q6H IV 05/10/17 20:00 05/12/17 08:01 (D50w (Vial) Inj) 50 ml UNSCH PRN IV PUSH 05/10/17 16:30 (Glucagon Inj) 1 mg UNSCH PRN OTHER 05/10/17 16:30 (NovoLOG SUPPLEMENTAL SCALE) 1 ACHS SLIDING SCALE SQ 05/10/17 17:00 05/12/17 08:01 (Prinivil) 40 mg DAILY PO 05/11/17 09:00 05/12/17 08:00 (Protonix) 20 mg DAILY PO 05/11/17 09:00 05/12/17 08:00 Vancomycin HCl 1750 mg/Sodium Chloride 517.5 ml @ 250 mls/hr Q12H IV 05/10/17 22:00 05/11/17 21:38 Lactated Ringer's 1,000 ml @ 30 mls/hr Q24H PRN IV 05/11/17 04:45 05/14/17 04:44 Miscellaneous Information ALL NURSING DEPARTME... UNSCH PRN .XX 05/11/17 19:34 05/12/17 19:33 (Restoril) 15 mg HS PRN PO 05/11/17 22:30 05/11/17 23:47 Vital Signs / I&O Vital Signs Date Time Temp Pulse Resp B/P (MAP) Pulse Ox O2 Delivery O2 Flow Rate FiO2 05/12/17 08:00 98.3 98 18 138/67 (90) 96 05/12/17 04:00 97.2 87 17 114/60 (78) 99 05/12/17 00:00 97.1 82 17 118/58 (78) 95 05/11/17 20:00 97.1 89 17 133/66 (88) 98 05/11/17 19:45 97 14 136/64 (88) 98 Room Air 05/11/17 19:39 98.3 104 14 124/58 (80) 100 Nasal Cannula 2 05/11/17 18:15 90 20 172/74 (106) 100 05/11/17 18:00 98.1 92 15 189/79 (115) 100 05/11/17 18:00 92 05/11/17 16:00 96.4 93 17 145/68 (93) 100 05/11/17 12:00 95.7 91 17 153/67 (95) 99 I/O 05/11/17 05/11/17 05/11/17 05/12/17 05/12/17 05/12/17 07:00 15:00 23:00 07:00 15:00 23:00 Intake Total 1727.5 ml 687.5 ml Output Total 5 ml 400 ml Balance 1722.5 ml 287.5 ml Intake Oral 360 ml 120 ml IV Total 667.5 ml 567.5 ml Other 700 ml Output Urine Total 400 ml Estimated Blood Loss 5 ml # Voids 5 2 # Bowel Movements 0 0 Physical Exam GENERAL: SKIN: Warm and dry. HEAD: Atraumatic. Normocephalic. EYES: Pupils equal and round. No scleral icterus. No injection or drainage. ENT: No nasal bleeding or discharge. NECK: Trachea midline. No JVD. CARDIOVASCULAR: Regular rate and rhythm. no murmur RESPIRATORY: No accessory muscle use. Clear to auscultation. Breath sounds equal bilaterally. GASTROINTESTINAL: Abdomen soft, non-tender, nondistended. Hepatic and splenic margins not palpable. MUSCULOSKELETAL: Extremities without clubbing, cyanosis, or edema. No obvious deformities. both feet well wrapped with DOROTEO bandage, lower legs appear dusky in color. NEUROLOGICAL: Awake and alert. No obvious cranial nerve deficits. Normal speech. PSYCHIATRIC: Appropriate mood and affect; insight and judgment normal. Laboratory Laboratory Tests Test 05/11/17 21:40 05/12/17 06:15 Vancomycin Level Trough 13.2 MCG/ML White Blood Count 6.4 TH/MM3 Red Blood Count 3.00 MIL/MM3 Hemoglobin 9.4 GM/DL Hematocrit 27.2 % Mean Corpuscular Volume 90.8 FL Mean Corpuscular Hemoglobin 31.4 PG Mean Corpuscular Hemoglobin Concent 34.6 % Red Cell Distribution Width 13.6 % Platelet Count 224 TH/MM3 Mean Platelet Volume 7.5 FL Neutrophils (%) (Auto) 72.4 % Lymphocytes (%) (Auto) 16.7 % Monocytes (%) (Auto) 9.1 % Eosinophils (%) (Auto) 1.3 % Basophils (%) (Auto) 0.5 % Neutrophils # (Auto) 4.7 TH/MM3 Lymphocytes # (Auto) 1.1 TH/MM3 Monocytes # (Auto) 0.6 TH/MM3 Eosinophils # (Auto) 0.1 TH/MM3 Basophils # (Auto) 0.0 TH/MM3 CBC Comment DIFF FINAL Differential Comment Blood Urea Nitrogen 13 MG/DL Creatinine 0.81 MG/DL Random Glucose 186 MG/DL Calcium Level 8.0 MG/DL Magnesium Level 2.0 MG/DL Sodium Level 138 MEQ/L Potassium Level 4.5 MEQ/L Chloride Level 105 MEQ/L Carbon Dioxide Level 26.5 MEQ/L Anion Gap 7 MEQ/L Estimat Glomerular Filtration Rate 99 ML/MIN Assessment and Plan Problem List: (1) PAD (peripheral artery disease) ICD Codes: I73.9 - Peripheral vascular disease, unspecified (2) Foot osteomyelitis ICD Codes: M86.9 - Osteomyelitis, unspecified (3) Cellulitis and abscess ICD Codes: L02.91 - Cutaneous abscess, unspecified; L03.90 - Cellulitis and abscess Status: Acute Assessment and Plan 57 yo WM with DM, peripheral neuropathy, HTN, and followed in our office for PAD s/p angioplasty to bilateral lower extremities in 2017 and followed by podiatry regularly who presented with bilateral feet infection and concern for R foot osteomyelitis severe PAD- 05/11/17 s/p L foot ulcer excision and debridement; s/p R foot 3rd digit amputation 09/2016: angioplasty to left SFA and left anterior tibial 11/2016: angioplasty to right mid-SFA plan for peripheral angiogram tomorrow, keep npo after midnight Alab Morrow May 12, 2017 08:29
[2017-05-12] MEDS: VANCOMYCIN INJ 1,750 MG in SODIUM CHLORID 0.9% 500 ML INJ 500 ML IV SCH ×2 (09:02→21:11)
--- NOTE | 2017-05-12 09:42 | HHI.PR ---
Subjective Remarks No new complaints Pt feeling well today Eating normally Objective Vitals Vital Signs Date Time Temp Pulse Resp B/P (MAP) Pulse Ox O2 Delivery O2 Flow Rate FiO2 05/12/17 08:00 98.3 98 18 138/67 (90) 96 05/12/17 04:00 97.2 87 17 114/60 (78) 99 05/12/17 00:00 97.1 82 17 118/58 (78) 95 05/11/17 20:00 97.1 89 17 133/66 (88) 98 05/11/17 19:45 97 14 136/64 (88) 98 Room Air 05/11/17 19:39 98.3 104 14 124/58 (80) 100 Nasal Cannula 2 05/11/17 18:15 90 20 172/74 (106) 100 05/11/17 18:00 98.1 92 15 189/79 (115) 100 05/11/17 18:00 92 05/11/17 16:00 96.4 93 17 145/68 (93) 100 05/11/17 12:00 95.7 91 17 153/67 (95) 99 Result Diagram: 05/12/17 0615 05/12/17 0615 Other Results Laboratory Tests Test 05/10/17 12:23 05/10/17 12:28 05/11/17 07:59 05/11/17 21:40 Blood Urea Nitrogen 27 MG/DL 18 MG/DL Creatinine 0.84 MG/DL 0.73 MG/DL Random Glucose 127 MG/DL 143 MG/DL Total Protein 7.6 GM/DL Albumin 2.6 GM/DL Calcium Level 8.3 MG/DL 8.9 MG/DL Alkaline Phosphatase 69 U/L Aspartate Amino Transf (AST/SGOT) 28 U/L Alanine Aminotransferase (ALT/SGPT) 27 U/L Total Bilirubin 0.5 MG/DL Sodium Level 134 MEQ/L 135 MEQ/L Potassium Level 4.9 MEQ/L 4.5 MEQ/L Chloride Level 102 MEQ/L 102 MEQ/L Carbon Dioxide Level 25.0 MEQ/L 27.3 MEQ/L Anion Gap 7 MEQ/L 6 MEQ/L Estimat Glomerular Filtration Rate 95 ML/MIN 111 ML/MIN C-Reactive Protein 21.10 MG/DL White Blood Count 8.4 TH/MM3 7.6 TH/MM3 Red Blood Count 3.61 MIL/MM3 3.42 MIL/MM3 Hemoglobin 11.3 GM/DL 10.8 GM/DL Hematocrit 32.9 % 31.4 % Mean Corpuscular Volume 91.1 FL 92.0 FL Mean Corpuscular Hemoglobin 31.3 PG 31.7 PG Mean Corpuscular Hemoglobin Concent 34.4 % 34.5 % Red Cell Distribution Width 13.7 % 13.7 % Platelet Count 227 TH/MM3 254 TH/MM3 Mean Platelet Volume 8.1 FL 7.5 FL Neutrophils (%) (Auto) 77.0 % 71.4 % Lymphocytes (%) (Auto) 11.9 % 16.8 % Monocytes (%) (Auto) 9.5 % 9.6 % Eosinophils (%) (Auto) 0.9 % 1.7 % Basophils (%) (Auto) 0.7 % 0.5 % Neutrophils # (Auto) 6.5 TH/MM3 5.5 TH/MM3 Lymphocytes # (Auto) 1.0 TH/MM3 1.3 TH/MM3 Monocytes # (Auto) 0.8 TH/MM3 0.7 TH/MM3 Eosinophils # (Auto) 0.1 TH/MM3 0.1 TH/MM3 Basophils # (Auto) 0.1 TH/MM3 0.0 TH/MM3 CBC Comment DIFF FINAL DIFF FINAL Differential Comment Erythrocyte Sedimentation Rate 100 mm/hr Prothrombin Time 10.8 SEC Prothromb Time International Ratio 1.1 RATIO Activated Partial Thromboplast Time 24.2 SEC Vancomycin Level Trough 13.2 MCG/ML Test 05/12/17 06:15 White Blood Count 6.4 TH/MM3 Red Blood Count 3.00 MIL/MM3 Hemoglobin 9.4 GM/DL Hematocrit 27.2 % Mean Corpuscular Volume 90.8 FL Mean Corpuscular Hemoglobin 31.4 PG Mean Corpuscular Hemoglobin Concent 34.6 % Red Cell Distribution Width 13.6 % Platelet Count 224 TH/MM3 Mean Platelet Volume 7.5 FL Neutrophils (%) (Auto) 72.4 % Lymphocytes (%) (Auto) 16.7 % Monocytes (%) (Auto) 9.1 % Eosinophils (%) (Auto) 1.3 % Basophils (%) (Auto) 0.5 % Neutrophils # (Auto) 4.7 TH/MM3 Lymphocytes # (Auto) 1.1 TH/MM3 Monocytes # (Auto) 0.6 TH/MM3 Eosinophils # (Auto) 0.1 TH/MM3 Basophils # (Auto) 0.0 TH/MM3 CBC Comment DIFF FINAL Differential Comment Blood Urea Nitrogen 13 MG/DL Creatinine 0.81 MG/DL Random Glucose 186 MG/DL Calcium Level 8.0 MG/DL Magnesium Level 2.0 MG/DL Sodium Level 138 MEQ/L Potassium Level 4.5 MEQ/L Chloride Level 105 MEQ/L Carbon Dioxide Level 26.5 MEQ/L Anion Gap 7 MEQ/L Estimat Glomerular Filtration Rate 99 ML/MIN Imaging Last Impressions Foot X-Ray 05/10/17 0000 Signed Impressions: Service Date/Time: Wednesday, May 10, 2017 12:53 - CONCLUSION: 1. No significant erosive bony change to suggest osteomyelitis as questioned. Meng Gatica MD Foot MRI 05/10/17 0000 Signed Impressions: Service Date/Time: Wednesday, May 10, 2017 13:58 - CONCLUSION: 1. Evidence of cellulitis in the plantar soft tissues about the 4th metatarsal bone. 2. 3. No MR evidence for osteomyelitis: 4. No signal abnormalities and no abnormal enhancement within the osseous structures of the forefoot or midfoot. Adan Camargo MD Chest X-Ray 05/10/17 0000 Signed Impressions: Service Date/Time: Wednesday, May 10, 2017 12:57 - CONCLUSION: 1. No acute cardiopulmonary disease. Meng Gatica MD Last Impressions Foot X-Ray 05/10/17 0000 Signed Impressions: Service Date/Time: Wednesday, May 10, 2017 12:53 - CONCLUSION: 1. No significant erosive bony change to suggest osteomyelitis as questioned. Meng Gatica MD Chest X-Ray 05/10/17 0000 Signed Impressions: Service Date/Time: Wednesday, May 10, 2017 12:57 - CONCLUSION: 1. No acute cardiopulmonary disease. Meng Gatica MD Objective Remarks General: NAD, AAOx3 Chest: CTA Cardiac: Regular Abd: +BS, soft ND/NT Ext: Bilateral feet are bandaged which are c/d/i, RLE edema A/P Problem List: (1) Foot osteomyelitis ICD Codes: M86.9 - Osteomyelitis, unspecified Plan: Osteomyelitis Right foot Cellulitis BLE - This is a 57 year old male patient with DM, HTN and GERD. 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 Frausto for concerns of OM of right foot. Patient reports that he started working at [email or web address] 03/29/17 which is a job that required walking and lifting, he then started to have blisters. Toward the end of March patient noticed that his left foot opened up then about a week later patient's right foot opened. Then patient's feet began to drain. Patient also had rigors which started last Tuesday and then night sweats Tuesday night. Tuesday night the patient noticed that his sock was covered in blood and his 3rd and 4th toes started to have a change in color. Patient has taken clindamycin and dicloxacillin. Patient was started on Dicloxacillin by patient's PCP Dr. Coker after reviewing results of wound culture. - C reactive protein 21.10 - ESR 100 - MRI Left foot: Evidence of cellulitis in the plantar soft tissue about the 4th metatarsal bone. No MR evidence of osteomyelitis. No signal abnormalities and no abnormal enhancement within the osseous structure of the forefoot or midfoot. - MRI R foot: No evidence of cellulitis plantar soft tissue with some enhancing soft tissue extending to the interdigital space between the 2nd and 4th digits. There is definite signal abnormality in the marrow of the proximal phalanx of the 3rd and 4th digits and possible subtle abnormality in the proximal phalanx of the 2nd digit, suspicious for osteomyelitis. - Podiatry is following - Pt underwent left foot ulcer excisional sharp debridement, right 3rd digit amputation, 2nd and 4th proximal phalanx base bone biopsy, and I&D right foot - Pt was given Vanco and Zosyn in the ER - Wound cultures obtained and are pending. - BC (05/10) with NGTD PAD - Patient on home Plavix and aspirin, on hold in light of surgery - Pt previously had angioplasty to left SFA and left anterior tibial (09/2016 ) and angioplasty to right mid-SFA (11/2016) - Surgical report on 05/11 noted right foot with poor blood flow - Cardiology is following and pt is planned for peripheral angiogram tomorrow GERD - Continue home Omeprazole HTN - Continue home Lisinopril 40 mg PO daily - Monitor BP DM type 2 - SSI coverage - Accu checks ACHS - Diabetic diet Lower extremity edema - Lasix 40 mg PO BID - Potassium 20 mg PO BID DVT prophylaxis with SCDs (2) GERD (gastroesophageal reflux disease) ICD Codes: K21.9 - Gastro-esophageal reflux disease without esophagitis (3) Hypertension ICD Codes: I10 - Hypertension Status: Chronic (4) Diabetes ICD Codes: E11.9 - Diabetes Status: Acute Assessment and Plan Patient examined. Assessment and plan formulated with Diann Anaya PA-C. I agree with the above. diabetic foot ulcers and osteo. podiatry to OR today. cont abx. f/u cx's.supportive care. Diann Anaya May 12, 2017 09:42
--- NOTE | 2017-05-12 11:19 | MP ---
cc: DANISH ESTES DP DATE OF SURGERY 05/12/2017 PREOPERATIVE DIAGNOSIS Bilateral foot ulcer right foot likely osteomyelitis of third digit, possible osteomyelitis of second and fourth digit and abscess clinically right foot. POSTOPERATIVE DIAGNOSIS Bilateral foot ulcer right foot likely osteomyelitis of third digit, possible osteomyelitis of second and fourth digit and abscess clinically right foot. PROCEDURES PERFORMED 1. Left foot ulcer, sharp excisional debridement. 2. Right third digit amputation. 3. Second and fourth proximal phalanx incision bone cortex, bone biopsy, and incision and drainage plantar deep abscess right foot. FINDINGS Left foot, overall viable bleeding ulcer without any signs of deep infection. However, the right foot, there was poor bleeding after dropping the tourniquet and a severe deep second and third interspace infection with necrosis of the plantar fat pad. COMPLICATIONS None SPECIMEN Bone biopsy second and fourth digit right foot, deep bone culture and deep bone soft tissue culture. ANESTHESIA General anesthesia was used. No local. PACKING Packing was placed within the wounds. TOURNIQUET TIME 120 minutes at 250 mmHg about the patient's right ankle. PLAN OF ACTIVITY PACU then return to floor. Continue IV antibiotics. Await possible vascular intervention per Dr. Barnes. JUSTIFICATIONS FOR PROCEDURE This is a 57-year-old male who is known for peripheral neuropathy. He was seen in the clinic with significant worsening of clinical presentation. MRI was ordered in the inpatient setting and it showed that there is significant infection of the right foot, not so much of the left. The patient has a history of vascular intervention of his lower extremities. I spoke with Dr. Barnes and the plan is to perform an angiogram to hopefully improve flow. The degree of the infection took priority. We devised a plan to move forward with eradication of at least the deep portion of the infection and then possible revisional amputation at a later date. The patient understood that the right foot is in very bad shape, the left not so much. We will work for limb salvage. PROCEDURE IN DETAIL Under mild sedation, the patient was brought in the operating room, placed on the operating room table in the supine position. Following the induction of general anesthesia, the bilateral lower extremities were then scrubbed, prepped and draped in the usual aseptic fashion. The left foot was examined first, so there was noted to be mainly a granular base with minimal hyperkeratotic rim of the plantar forefoot. Upon curettage and sharp excisional debridement utilizing a 15 blade and surgery forceps, there was noted to be good punctate bleeding. There was no probing, tunneling, or tracking. There was no odor. A bandage was then applied. The left foot was identified. There was noted to be severe boggy texture liquefaction type presentation of the base of the third digit. A dorsal incision was made, fishmouth type incision, down to the level of the third MPJ. Upon incising this tissue, there was noted to be odor. There was noted to be deep abscess. There was noted to be significant destruction of tissue. The digit was then sharply disarticulated and the bone was actually extremely soft at the base of the proximal phalanx. This was then passed off the field for pathological analysis. The head of the third metatarsal appeared to be without any clinical signs of bone infection. An incision was made medially and laterally allowing access to the base of the second and fourth digit proximal phalanx. A bone biopsy was performed. The bone appeared to be slightly soft. At this time, plantar skin was identified to be a liquefactive type necrosis of the plantar fat pad. This was excised. It had a foul odor. Overall very poor health of the tissue and this communicated directly to the level of the amputation site third MPJ. The tourniquet was dropped at this time. There was noted to be capillary fill time to the digits, but minimal bleeding at the surgery site. The wound was then packed open. Multiple specimens and culture were sent. We will follow along. My initial impression is left foot may do quite well, but the right foot may eventually need some kind of central transmetatarsal amputation if not a full transmetatarsal amputation once blood flow is improved, but the patient is at risk for loss of limb if blood flow is not improved and infection is almost certainly to return given the vascular status. I will continue to follow along. Plan for return to the OR for debridement after Dr. Barnes. BETH Hernandez/KHADIJAH /7:43 PM /10:51 AM
[2017-05-12 12:00] VITALS: BP 138/78; PULSE 96; RESP 18; TEMP 97.4; O2SAT 97
[2017-05-12] MEDS: CLOPIDOGREL 75 MG TAB PO SCH (12:54)
[2017-05-12] MEDS: ASPIRIN EC 81 MG TABEC PO SCH (12:54)
[2017-05-12] MEDS: ATORVASTATIN 40 MG TAB PO SCH (12:54)
[2017-05-12 16:00] VITALS: BP 152/71; PULSE 87; RESP 18; TEMP 98.6; O2SAT 97
--- NOTE | 2017-05-12 17:23 | PD.POD ---
Subjective Pain score: 0 Remarks Patient feels well ready for possible vascular intervention tomorrow Past Med/Surg/Social History Social History Smoking Status: Former Smoker Objective Vital Signs Vital Signs Date Time Temp Pulse Resp B/P (MAP) Pulse Ox O2 Delivery O2 Flow Rate FiO2 05/12/17 16:00 98.6 87 18 152/71 (98) 97 05/12/17 12:00 97.4 96 18 138/78 (98) 97 05/12/17 08:00 98.3 98 18 138/67 (90) 96 05/12/17 04:00 97.2 87 17 114/60 (78) 99 05/12/17 00:00 97.1 82 17 118/58 (78) 95 05/11/17 20:00 97.1 89 17 133/66 (88) 98 05/11/17 19:45 97 14 136/64 (88) 98 Room Air 05/11/17 19:39 98.3 104 14 124/58 (80) 100 Nasal Cannula 2 05/11/17 18:15 90 20 172/74 (106) 100 05/11/17 18:00 98.1 92 15 189/79 (115) 100 05/11/17 18:00 92 Coded Allergies: codeine (Verified Allergy, Severe, HIVES, 05/10/17) sulfamethoxazole (Verified Allergy, Severe, HIVES, 05/10/17) trimethoprim (Verified Allergy, Severe, HIVES, 05/10/17) Medications and IVs Administered Medications Medications (Trade) Dose Ordered Sig/Jack Route PRN Reason Start Time Stop Time Status Last Admin Dose Admin Potassium Chloride (KCl) 20 meq BID PO 05/10/17 21:00 05/11/17 21:27 Sodium Chloride (NS Flush) 2 ml BID IV FLUSH 05/10/17 21:00 05/12/17 07:58 Senna/Docusate Sodium (Amie-Colace) 1 tab BID PO 05/10/17 21:00 05/12/17 07:59 Piperacillin Sod/ Tazobactam Sod 50 ml @ 100 mls/hr Q6H IV 05/10/17 20:00 05/12/17 12:55 Insulin Aspart (NovoLOG SUPPLEMENTAL SCALE) 1 ACHS SLIDING SCALE SQ 05/10/17 17:00 05/12/17 16:32 Lisinopril (Prinivil) 40 mg DAILY PO 05/11/17 09:00 05/12/17 08:00 Pantoprazole Sodium (Protonix) 20 mg DAILY PO 05/11/17 09:00 05/12/17 08:00 Vancomycin HCl 1750 mg/Sodium Chloride 517.5 ml @ 250 mls/hr Q12H IV 05/10/17 22:00 05/12/17 09:02 Aspirin (Ecotrin Ec) 81 mg DAILY PO 05/12/17 12:15 05/12/17 12:54 Clopidogrel Bisulfate (Plavix) 75 mg DAILY PO 05/12/17 12:15 05/12/17 12:54 Atorvastatin Calcium (Lipitor) 40 mg DAILY PO 05/12/17 12:15 05/12/17 12:54 Other Results Laboratory Tests Test 05/11/17 07:59 05/12/17 06:15 White Blood Count 7.6 TH/MM3 6.4 TH/MM3 Red Blood Count 3.42 MIL/MM3 3.00 MIL/MM3 Hemoglobin 10.8 GM/DL 9.4 GM/DL Hematocrit 31.4 % 27.2 % Mean Corpuscular Volume 92.0 FL 90.8 FL Mean Corpuscular Hemoglobin 31.7 PG 31.4 PG Mean Corpuscular Hemoglobin Concent 34.5 % 34.6 % Red Cell Distribution Width 13.7 % 13.6 % Platelet Count 254 TH/MM3 224 TH/MM3 Mean Platelet Volume 7.5 FL 7.5 FL Neutrophils (%) (Auto) 71.4 % 72.4 % Lymphocytes (%) (Auto) 16.8 % 16.7 % Monocytes (%) (Auto) 9.6 % 9.1 % Eosinophils (%) (Auto) 1.7 % 1.3 % Basophils (%) (Auto) 0.5 % 0.5 % Neutrophils # (Auto) 5.5 TH/MM3 4.7 TH/MM3 Lymphocytes # (Auto) 1.3 TH/MM3 1.1 TH/MM3 Monocytes # (Auto) 0.7 TH/MM3 0.6 TH/MM3 Eosinophils # (Auto) 0.1 TH/MM3 0.1 TH/MM3 Basophils # (Auto) 0.0 TH/MM3 0.0 TH/MM3 CBC Comment DIFF FINAL DIFF FINAL Differential Comment Laboratory Tests Test 05/11/17 07:59 05/12/17 06:15 Blood Urea Nitrogen 18 MG/DL 13 MG/DL Creatinine 0.73 MG/DL 0.81 MG/DL Random Glucose 143 MG/DL 186 MG/DL Calcium Level 8.9 MG/DL 8.0 MG/DL Sodium Level 135 MEQ/L 138 MEQ/L Potassium Level 4.5 MEQ/L 4.5 MEQ/L Chloride Level 102 MEQ/L 105 MEQ/L Carbon Dioxide Level 27.3 MEQ/L 26.5 MEQ/L Anion Gap 6 MEQ/L 7 MEQ/L Estimat Glomerular Filtration Rate 111 ML/MIN 99 ML/MIN Magnesium Level 2.0 MG/DL Microbiology Date/Time Source Procedure Growth Status 05/10/17 12:28 Blood Peripheral Aerobic Blood Culture - Preliminary NO GROWTH IN 2 DAYS Resulted 05/10/17 12:28 Blood Peripheral Anaerobic Blood Culture - Preliminary NO GROWTH IN 2 DAYS Resulted 05/10/17 12:23 Blood Peripheral Aerobic Blood Culture - Preliminary NO GROWTH IN 2 DAYS Resulted 05/10/17 12:23 Blood Peripheral Anaerobic Blood Culture - Preliminary NO GROWTH IN 2 DAYS Resulted 05/11/17 19:18 Wound Foot Fungal Smear - Final NO FUNGAL ELEMENTS SEEN. Resulted 05/11/17 19:18 Wound Foot Fungal Culture Pending Resulted 05/11/17 19:18 Wound Foot Acid Fast Stain Pending Received 05/11/17 19:18 Wound Foot Mycobacterial Culture Pending Received 05/11/17 19:18 Wound Foot Gram Stain - Final Resulted 05/11/17 19:18 Wound Culture - Preliminary Group D Enterococcus Resulted 05/11/17 19:18 Wound Foot Fungal Smear - Final NO FUNGAL ELEMENTS SEEN. Resulted 05/11/17 19:18 Wound Foot Fungal Culture Pending Resulted 05/11/17 19:18 Wound Foot Acid Fast Stain Pending Received 05/11/17 19:18 Wound Foot Mycobacterial Culture Pending Received 05/11/17 19:18 Wound Foot Gram Stain - Final Resulted 05/11/17 19:18 Wound Culture - Preliminary Group D Enterococcus Resulted 05/10/17 18:37 Wound Foot Gram Stain - Final Resulted 05/10/17 18:37 Wound Foot Wound Culture - Preliminary Resulted 05/10/17 18:37 Wound Foot Gram Stain - Final Resulted 05/10/17 18:37 Wound Culture - Preliminary S. Aureus Mrsa Group D Enterococcus Resulted Last 72 hours Impressions Foot X-Ray 2/20/18 0000 Signed Impressions: Service Date/Time: Wednesday, May 10, 2017 12:53 - CONCLUSION: 1. No significant erosive bony change to suggest osteomyelitis as questioned. Meng Gatica MD Foot X-Ray 05/10/17 Signed Impressions: Service Date/Time: Wednesday, May 10, 2017 12:53 - CONCLUSION: 1. No significant bony erosion to suggest osteomyelitis, as questioned. Meng Gatica MD Foot MRI 05/10/17 Signed Impressions: Service Date/Time: Wednesday, May 10, 2017 13:58 - CONCLUSION: 1. Evidence of cellulitis in the plantar soft tissues about the 4th metatarsal bone. 2. 3. No MR evidence for osteomyelitis: 4. No signal abnormalities and no abnormal enhancement within the osseous structures of the forefoot or midfoot. Adan Camargo MD Foot MRI 05/10/17 Signed Impressions: Service Date/Time: Wednesday, May 10, 2017 13:58 - CONCLUSION: 1. No evidence of cellulitis plantar soft tissues with some enhancing soft tissue extending to the interdigital space between the 2nd and 4th digits. 2. There is definite signal abnormality in the marrow of the proximal phalanx of the 3rd and 4th digits and possible subtle abnormality in the proximal phalanx of the 2nd digit, suspicious for osteomyelitis. Adan Camargo MD Chest X-Ray 05/10/17 Signed Impressions: Service Date/Time: Wednesday, May 10, 2017 12:57 - CONCLUSION: 1. No acute cardiopulmonary disease. Meng Gatica MD ARTERIAL SEGMT DOPP COMP W TBI Signed EXAM DATE/TIME: 05/10/2017 00:00 [facility] COMPARISON: MRI FOOT RIGHT W & W/O CONTRAST, May 10, 2017, 13:58. INDICATIONS : Osteomyelitis of bilateral feet TECHNIQUE: Five-station segmental examination of the lower extremities was performed. Pulsed-cuff waveform tracings and pressures were recorded. Ankle-brachial indices and toe-brachial indices were calculated. PRESSURES (mmHg): Brachial (arm): Right IV SITE Left 142 Lower Thigh: Right 169 Left 169 Calf: Right 166 Left 136 Ankle: Right 95 Left 134 Toe: Right 85 Left 98 RENÉE: Right 0.67 Left 0.94 TBI: Right 0.60 Left 0.69 PULSED CUFF WAVEFORMS: There is a diminished waveforms throughout both lower extremities. CONCLUSION: 1. Right le. The RENÉE is significantly diminished. The TBI is moderately lower as well. Exam would suggest significant vascular disease. 3. 4. Left le. The RENÉE and TBI are within the range of normal however the diminished waveform is somewhat concerning for underlying vascular disease. 6. CT angiography and runoff would be warranted for further assessment. Brando Gamboa MD on May 11, 2017 at 9:37 Board Certified Radiologist. This report was verified electronically. Physical Exam Remarks Left lower extremity- partial-thickness ulcer plantar aspect forefoot appears to have increased granulation tissue no odor and minimal drainage seen on bandage mild hammertoes noted pulses decreased however foot appears warm sensation decreased light touch Right lower extremity- full-thickness ulceration probing directly to the third metatarsal with minimal bleeding overall wolff fibrotic base of wound that probes to the dorsal aspect of the third amputation digit site there is decrease in erythema, digits 1-4 and 5 remainder have capillary fill time the foot is warm sensation decreased to light touch Assessment & Plan A/P Bilateral foot ulceration, right third digit osteomyelitis, peripheral vascular disease Postop day 1 status post bilateral foot ulcer debridement with right third digit amputation incision and drainage right foot The right foot is not showing signs of progress at this point. High chance of needing further amputation. Left foot appears to be doing well Xeroform placed on the wound. I will continue to follow after Dr. Barnes performs intervention Continue IV antibiotics and bed rest and hyperglycemic control Ángel Soto DPM May 12, 2017 17:23
[2017-05-12 20:00] VITALS: BP 146/69; PULSE 88; RESP 17; TEMP 98.7; O2SAT 97
[2017-05-12] MEDS: TEMAZEPAM 15 MG CAP PO PRN (23:25)
[2017-05-13] VITALS: BP 140/62; PULSE 81; RESP 17; TEMP 98.6; O2SAT 92
[2017-05-13] MEDS: PIPERACIL-TAZO 3.375 GM PREMIX 50 ML IV SCH ×4 (02:57→21:32)
[2017-05-13] MEDS: SODIUM CHLORIDE 0.9% FLUSH 10 ML FLUSH IV FLUSH PRN (02:57)
[2017-05-13 04:00] VITALS: BP 133/57; PULSE 80; RESP 17; TEMP 98.9; O2SAT 94
[2017-05-13] MEDS: INSULIN ASPART SUPPLEMENTAL SCALE SQ SCH ×4 (07:18→21:30)
[2017-05-13 08:00] VITALS: BP 136/62; PULSE 89; RESP 17; TEMP 96.8; O2SAT 97
[2017-05-13] MEDS: ATORVASTATIN 40 MG TAB PO SCH (08:09)
[2017-05-13] MEDS: CLOPIDOGREL 75 MG TAB PO SCH (08:09)
[2017-05-13] MEDS: ASPIRIN EC 81 MG TABEC PO SCH (08:10)
[2017-05-13] MEDS: SODIUM CHLORIDE 0.9% FLUSH 10 ML FLUSH IV FLUSH SCH ×2 (08:10→21:34)
[2017-05-13] MEDS: FUROSEMIDE 40 MG TAB PO SCH ×2 (08:10→21:00)
[2017-05-13] MEDS: POTASSIUM CHLORIDE 20 MEQ CONTROLLED RELEASE TAB PO SCH ×2 (08:10→21:00)
[2017-05-13] MEDS: PANTOPRAZOLE SOD 20 MG DELAYED RELEASE TAB PO SCH (08:11)
[2017-05-13] MEDS: DOCUSATE SODIUM 50 MG/SENNA 8.6 MG TAB PO SCH ×2 (08:11→21:33)
[2017-05-13] MEDS: LISINOPRIL 20 MG TAB PO SCH (08:11)
[2017-05-13] MEDS ORDERED: MIDAZOLAM HCL 2 MG/2 ML VIAL ONE ×3 (08:22→09:47)
[2017-05-13] MEDS ORDERED: HEPARIN-NS/PF FLUSH BAG 2,000 ML IV FLUSH ONE (08:22)
--- NOTE | 2017-05-13 08:24 | PD.CARD.PN ---
Subjective Subjective Remarks feeling well. no limb pain, no chest pain or sob. Right foot 3rd digit amputation POD 2.. (Alba Morrow) Objective Medications Current Medications Medications (Trade) Dose Ordered Sig/Jack Route Start Time Stop Time Status Last Admin (Lasix) 40 mg BID PO 05/10/17 21:00 (KCl) 20 meq BID PO 05/10/17 21:00 05/11/17 21:27 (NS Flush) 2 ml UNSCH PRN IV FLUSH 05/10/17 16:15 05/13/17 02:57 (NS Flush) 2 ml BID IV FLUSH 05/10/17 21:00 05/13/17 08:10 (Tylenol) 650 mg Q4H PRN PO 05/10/17 16:15 (Zofran Inj) 4 mg Q6H PRN IVP 05/10/17 16:15 (Narcan Inj) 0.4 mg UNSCH PRN IV PUSH 05/10/17 16:15 (Amie-Colace) 1 tab BID PO 05/10/17 21:00 05/13/17 08:11 (Milk Of Linnea Lireji) 30 ml Q12H PRN PO 05/10/17 16:15 Pharmacy Profile Note 0 ml @ 0 mls/hr UNSCH OTHER 05/10/17 16:15 Piperacillin Sod/ Tazobactam Sod 50 ml @ 100 mls/hr Q6H IV 05/10/17 20:00 05/13/17 08:11 (D50w (Vial) Inj) 50 ml UNSCH PRN IV PUSH 05/10/17 16:30 (Glucagon Inj) 1 mg UNSCH PRN OTHER 05/10/17 16:30 (NovoLOG SUPPLEMENTAL SCALE) 1 ACHS SLIDING SCALE SQ 05/10/17 17:00 05/12/17 21:07 (Prinivil) 40 mg DAILY PO 05/11/17 09:00 05/12/17 08:00 (Protonix) 20 mg DAILY PO 05/11/17 09:00 05/13/17 08:11 Vancomycin HCl 1750 mg/Sodium Chloride 517.5 ml @ 250 mls/hr Q12H IV 05/10/17 22:00 05/12/17 21:11 Lactated Ringer's 1,000 ml @ 30 mls/hr Q24H PRN IV 05/11/17 04:45 05/14/17 04:44 (Restoril) 15 mg HS PRN PO 05/12/17 11:30 05/12/17 23:25 (Ecotrin Ec) 81 mg DAILY PO 05/12/17 12:15 05/12/17 12:54 (Plavix) 75 mg DAILY PO 05/12/17 12:15 05/13/17 08:09 (Lipitor) 40 mg DAILY PO 05/12/17 12:15 05/12/17 12:54 Vital Signs / I&O Vital Signs Date Time Temp Pulse Resp B/P (MAP) Pulse Ox O2 Delivery O2 Flow Rate FiO2 05/13/17 04:00 98.9 80 17 133/57 (82) 94 05/13/17 00:00 98.6 81 17 140/62 (88) 92 05/12/17 20:00 98.7 88 17 146/69 (94) 97 05/12/17 16:00 98.6 87 18 152/71 (98) 97 05/12/17 12:00 97.4 96 18 138/78 (98) 97 I/O 05/12/17 05/12/17 05/12/17 05/13/17 05/13/17 05/13/17 07:00 15:00 23:00 07:00 15:00 23:00 Intake Total 687.5 ml 600 ml 890 ml 0 ml Output Total 400 ml 1100 ml 500 ml Balance 287.5 ml 600 ml -210 ml -500 ml Intake Oral 120 ml 840 ml 0 ml IV Total 567.5 ml 600 ml 50 ml Output Urine Total 400 ml 1100 ml 500 ml # Voids 2 3 # Bowel Movements 0 0 2 Physical Exam GENERAL: SKIN: Warm and dry. HEAD: Atraumatic. Normocephalic. EYES: Pupils equal and round. No scleral icterus. No injection or drainage. ENT: No nasal bleeding or discharge. NECK: Trachea midline. No JVD. CARDIOVASCULAR: Regular rate and rhythm. no murmur RESPIRATORY: No accessory muscle use. Clear to auscultation. Breath sounds equal bilaterally. GASTROINTESTINAL: Abdomen soft, non-tender, nondistended. Hepatic and splenic margins not palpable. MUSCULOSKELETAL: Extremities without clubbing, cyanosis, or edema. No obvious deformities. both feet well wrapped with DOROTEO bandage, lower legs appear dusky in color. NEUROLOGICAL: Awake and alert. No obvious cranial nerve deficits. Normal speech. PSYCHIATRIC: Appropriate mood and affect; insight and judgment normal. Laboratory Laboratory Tests Test 05/10/17 12:23 05/10/17 12:28 05/11/17 21:40 05/12/17 06:15 Blood Urea Nitrogen 27 MG/DL 13 MG/DL Creatinine 0.84 MG/DL 0.81 MG/DL Random Glucose 127 MG/DL 186 MG/DL Total Protein 7.6 GM/DL Albumin 2.6 GM/DL Calcium Level 8.3 MG/DL 8.0 MG/DL Alkaline Phosphatase 69 U/L Aspartate Amino Transf (AST/SGOT) 28 U/L Alanine Aminotransferase (ALT/SGPT) 27 U/L Total Bilirubin 0.5 MG/DL Sodium Level 134 MEQ/L 138 MEQ/L Potassium Level 4.9 MEQ/L 4.5 MEQ/L Chloride Level 102 MEQ/L 105 MEQ/L Carbon Dioxide Level 25.0 MEQ/L 26.5 MEQ/L C-Reactive Protein 21.10 MG/DL Erythrocyte Sedimentation Rate 100 mm/hr Prothrombin Time 10.8 SEC Prothromb Time International Ratio 1.1 RATIO Activated Partial Thromboplast Time 24.2 SEC Vancomycin Level Trough 13.2 MCG/ML White Blood Count 6.4 TH/MM3 Red Blood Count 3.00 MIL/MM3 Hemoglobin 9.4 GM/DL Hematocrit 27.2 % Mean Corpuscular Volume 90.8 FL Mean Corpuscular Hemoglobin 31.4 PG Mean Corpuscular Hemoglobin Concent 34.6 % Red Cell Distribution Width 13.6 % Platelet Count 224 TH/MM3 Mean Platelet Volume 7.5 FL Neutrophils (%) (Auto) 72.4 % Lymphocytes (%) (Auto) 16.7 % Monocytes (%) (Auto) 9.1 % Eosinophils (%) (Auto) 1.3 % Basophils (%) (Auto) 0.5 % Neutrophils # (Auto) 4.7 TH/MM3 Lymphocytes # (Auto) 1.1 TH/MM3 Monocytes # (Auto) 0.6 TH/MM3 Eosinophils # (Auto) 0.1 TH/MM3 Basophils # (Auto) 0.0 TH/MM3 CBC Comment DIFF FINAL Differential Comment Magnesium Level 2.0 MG/DL Anion Gap 7 MEQ/L Estimat Glomerular Filtration Rate 99 ML/MIN (Alba Morrow) Assessment and Plan Problem List: (1) PAD (peripheral artery disease) ICD Codes: I73.9 - Peripheral vascular disease, unspecified (2) Foot osteomyelitis ICD Codes: M86.9 - Osteomyelitis, unspecified (3) Cellulitis and abscess ICD Codes: L02.91 - Cutaneous abscess, unspecified; L03.90 - Cellulitis and abscess Status: Acute Assessment and Plan 57 yo WM with DM, peripheral neuropathy, HTN, and followed in our office for PAD s/p angioplasty to bilateral lower extremities in 2017 and followed by podiatry regularly who presented with bilateral feet infection and concern for R foot osteomyelitis severe PAD- s/p R foot 3rd digit amputation POD #2. podiatry following for bilateral foot ulcerations. 09/2016: angioplasty to left SFA and left anterior tibial 11/2016: angioplasty to right mid-SFA plan for repeat peripheral angiogram this morning. (Alba Morrow) Assessment and Plan RLE angio atherectomy/INTERLOCKING INSTALLER PT which collateralizes an occluded AT. allow recovery. consider repeat angio with retrograde access in AT asa plavix (Fabio Barnes MD) Alba Morrow May 13, 2017 08:24 Fabio Barnes MD May 13, 2017 10:55
[2017-05-13] MEDS ORDERED: HEPARIN SODIUM - IV 10,000 UNITS/10 ML VIAL ONE ×2 (08:54→09:47)
[2017-05-13] MEDS: VANCOMYCIN INJ 1,750 MG in SODIUM CHLORID 0.9% 500 ML INJ 500 ML IV SCH ×2 (10:00→21:31)
[2017-05-13] MEDS ORDERED: NITROGLYCERIN INJ 5 ML ONE ×2 (10:35→10:48)
[2017-05-13] MEDS ORDERED: IOHEXOL 350 MG/ML 100 ML BTL (for Cath Lab) OTHER ONE (12:55)
[2017-05-13] MEDS ORDERED: IOHEXOL 350 MG/ML 50 ML BTL (for Cath Lab) OTHER ONE (12:55)
--- NOTE | 2017-05-13 14:45 | MA ---
cc: ORTIZ GRAY DATE 05/13/2017 PROCEDURE PERFORMED 1. Descending aortography. 2. Right lower extremity peripheral angiography with first, second and third order visualization and interpretation. 3. Orbital rotational atherectomy. 4. Balloon angioplasty with drug-coated balloon of the right peroneal artery METHOD The risks, benefits and alternatives were discussed with the patient. The patient understood and consented to the procedure. The patient was brought into the catheterization lab and was placed on the catheterization table. The left groin was prepped and draped in the usual sterile fashion. The left groin was anesthetized with 2% lidocaine. The left common femoral artery was cannulated and a 5 Nicaraguan, 11 cm sheath was placed without difficulty. DESCENDING AORTOGRAPHY Descending aortography is performed in anterior-posterior view using a 24 cc contrast injection with good opacification. Descending aortography revealed mild infrarenal descending aortic atherosclerosis, bilateral renal arteries widely patent. RIGHT LOWER EXTREMITY PERIPHERAL ANGIOGRAPHY 1. The right internal, external and common iliac arteries have minor luminal irregularities. 2. The right common femoral and profunda arteries have minor luminal irregularities. 3. The right superficial femoral artery has a 30-40% stenosis proximally. 4. The right popliteal artery has minor luminal irregularities. 5. The anterior tibial is occluded proximally. 6. The posterior tibial peroneal trunk has 75% stenosis. 7. The peroneal vessel has 80% stenosis throughout. 8. The posterior tibial is occluded proximally at the bifurcation of the peroneal vessel. PERCUTANEOUS INTERVENTION A 90 [place]ar[place]uan Terumo sheath was advanced down to the popliteal artery. We attempted to see if we could engage the occlusion of the anterior tibial, but there is a 90 degree angulated turn and then a small branch right at the bifurcation of the occlusion. We tried two different wires, a [place]opl[place] ST and a [employer]IONER 25 gram tip wire. Unfortunately because of the bifurcation of that small sub-branch, we were never actually able to selectively engage the stump. We actually went down the peroneal and even tried to retrograde through a small collateral, but actually never directly connected to the anterior tibial until the level of the ankle. At that point, we elected to proceed with revascularization of the peroneal to improve inflow collateralization. A 1.25 mm bur was then advanced down and rotational atherectomy performed throughout the entire peroneal. A 2.5 x 3 mm tapered 210 mm balloon was then deployed on two sequential inflations and a 4.0 x 100 mm drug-coated balloon proximally. Nitro was given. Repeat angiography showed KRISTINA-III flow. Heparin was administered throughout the entire procedure. A 6 Nicaraguan short sheath was then sewn into place to be removed with manual hemostasis. CONCLUSIONS 1. Successful orbital rotational atherectomy and balloon angioplasty with drug-coated balloon of the severe stenosis within the peroneal vessel. 2. Occluded anterior tibial and posterior tibial arteries in the right lower extremity. 3. Mild descending aortic atherosclerosis. PLAN The patient will be continued on aggressive medical therapy and monitored closely for any post-procedural complications. Will see how he does with wound healing. He had recent toe amputation and bandage in place on the foot/ankle at time of procedure so it is not going to be easy to unwrap the foot on the catheterization table and try to attempt to retrograde through the anterior tibial artery/dorsalis pedis, although there is a good target to attempt to do so. Lets see how he does with this recovery and healing. We also gave quite a bit of contrast and radiation for this procedure and therefore we elected to stop at this point. Will probably bring him back for an attempt at a retrograde approach in the anterior tibial artery and see if we can get him a better revascularization long-term for improved wound healing. MD KATIE Prince/EULALIO /10:58 AM /2:14 PM PATRICIA
[2017-05-13 16:00] VITALS: BP 155/75; PULSE 93; RESP 17; TEMP 95.4; O2SAT 96
--- NOTE | 2017-05-13 16:12 | HHI.PR ---
Subjective Remarks Pt just returned to the floor from LE catheterization No new complaints Afebrile Objective Vitals Vital Signs Date Time Temp Pulse Resp B/P (MAP) Pulse Ox O2 Delivery O2 Flow Rate FiO2 05/13/17 12:03 95 Room Air 05/13/17 08:00 96.8 89 17 136/62 (86) 97 05/13/17 04:00 98.9 80 17 133/57 (82) 94 05/13/17 00:00 98.6 81 17 140/62 (88) 92 05/12/17 20:00 98.7 88 17 146/69 (94) 97 Result Diagram: 05/12/1715 05/12/17 0615 Other Results Laboratory Tests Test 05/11/17 21:40 05/12/17 06:15 Vancomycin Level Trough 13.2 MCG/ML White Blood Count 6.4 TH/MM3 Red Blood Count 3.00 MIL/MM3 Hemoglobin 9.4 GM/DL Hematocrit 27.2 % Mean Corpuscular Volume 90.8 FL Mean Corpuscular Hemoglobin 31.4 PG Mean Corpuscular Hemoglobin Concent 34.6 % Red Cell Distribution Width 13.6 % Platelet Count 224 TH/MM3 Mean Platelet Volume 7.5 FL Neutrophils (%) (Auto) 72.4 % Lymphocytes (%) (Auto) 16.7 % Monocytes (%) (Auto) 9.1 % Eosinophils (%) (Auto) 1.3 % Basophils (%) (Auto) 0.5 % Neutrophils # (Auto) 4.7 TH/MM3 Lymphocytes # (Auto) 1.1 TH/MM3 Monocytes # (Auto) 0.6 TH/MM3 Eosinophils # (Auto) 0.1 TH/MM3 Basophils # (Auto) 0.0 TH/MM3 CBC Comment DIFF FINAL Differential Comment Blood Urea Nitrogen 13 MG/DL Creatinine 0.81 MG/DL Random Glucose 186 MG/DL Calcium Level 8.0 MG/DL Magnesium Level 2.0 MG/DL Sodium Level 138 MEQ/L Potassium Level 4.5 MEQ/L Chloride Level 105 MEQ/L Carbon Dioxide Level 26.5 MEQ/L Anion Gap 7 MEQ/L Estimat Glomerular Filtration Rate 99 ML/MIN Imaging Last Impressions Foot X-Ray 05/10/17 0000 Signed Impressions: Service Date/Time: Wednesday, May 10, 2017 12:53 - CONCLUSION: 1. No significant erosive bony change to suggest osteomyelitis as questioned. Meng Gatica MD Foot MRI 05/10/17 0000 Signed Impressions: Service Date/Time: Wednesday, May 10, 2017 13:58 - CONCLUSION: 1. Evidence of cellulitis in the plantar soft tissues about the 4th metatarsal bone. 2. 3. No MR evidence for osteomyelitis: 4. No signal abnormalities and no abnormal enhancement within the osseous structures of the forefoot or midfoot. Adan Camargo MD Chest X-Ray 05/10/17 0000 Signed Impressions: Service Date/Time: Wednesday, May 10, 2017 12:57 - CONCLUSION: 1. No acute cardiopulmonary disease. Meng Gatica MD Last Impressions Foot X-Ray 05/10/17 Signed Impressions: Service Date/Time: Wednesday, May 10, 2017 12:53 - CONCLUSION: 1. No significant erosive bony change to suggest osteomyelitis as questioned. Meng Gatica MD Chest X-Ray 05/10/17 Signed Impressions: Service Date/Time: Wednesday, May 10, 2017 12:57 - CONCLUSION: 1. No acute cardiopulmonary disease. Meng Gatica MD Objective Remarks General: NAD, AAOx3 Chest: CTA Cardiac: Regular Abd: +BS, soft ND/NT Ext: Bilateral feet are bandaged which are c/d/i, RLE edema A/P Problem List: (1) Foot osteomyelitis ICD Codes: M86.9 - Osteomyelitis, unspecified Plan: Osteomyelitis Right foot Cellulitis BLE - This is a 57 year old male patient with DM, HTN and GERD. 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 Frausto for concerns of OM of right foot. Patient reports that he started working at [employer] 03/29/17 which is a job that required walking and lifting, he then started to have blisters. Toward the end of March patient noticed that his left foot opened up then about a week later patient's right foot opened. Then patient's feet began to drain. Patient also had rigors which started last Tuesday and then night sweats Tuesday night. Tuesday night the patient noticed that his sock was covered in blood and his 3rd and 4th toes started to have a change in color. Patient has taken clindamycin and dicloxacillin. Patient was started on Dicloxacillin by patient's PCP Dr. Coker after reviewing results of wound culture. - C reactive protein 21.10 - ESR 100 - MRI Left foot: Evidence of cellulitis in the plantar soft tissue about the 4th metatarsal bone. No MR evidence of osteomyelitis. No signal abnormalities and no abnormal enhancement within the osseous structure of the forefoot or midfoot. - MRI R foot: No evidence of cellulitis plantar soft tissue with some enhancing soft tissue extending to the interdigital space between the 2nd and 4th digits. There is definite signal abnormality in the marrow of the proximal phalanx of the 3rd and 4th digits and possible subtle abnormality in the proximal phalanx of the 2nd digit, suspicious for osteomyelitis. - Podiatry is following - Pt underwent left foot ulcer excisional sharp debridement, right 3rd digit amputation, 2nd and 4th proximal phalanx base bone biopsy, and I&D right foot - Pt was given Vanco and Zosyn in the ER - Wound cultures are growing MRSA, Enterococcus faecalis, Group B beta strep from the cultures on 05/10 - Surgical cultures (05/11) are growing Group D enterococcus and Pseudomonas Sp. - BC (05/10) with NGTD PAD - Pt previously had angioplasty to left SFA and left anterior tibial (09/2016 ) and angioplasty to right mid-SFA (11/2016) - Surgical report on 05/11 noted right foot with poor blood flow - Cardiology is following - Pt underwent LE angiogram (05/13) --> Successful orbital rotational atherectomy and balloon angioplasty with drug-coated balloon of the severe stenosis within the peroneal vessel, occluded anterior tibial and posterior tibial arteries, and mild descending aortic atherosclerosis. - Pt recommended to continue on aggressive medical therapy and will likely need outpt attempt at a retrograde approach in the anterior tibial to try to obtain better revascularization - ASA and Plavix resumed GERD - Continue home Omeprazole HTN - Continue home Lisinopril 40 mg PO daily - Monitor BP DM type 2 - SSI coverage - Accu checks ACHS - Diabetic diet Lower extremity edema - Lasix 40 mg PO BID - Potassium 20 mg PO BID DVT prophylaxis with SCDs (2) GERD (gastroesophageal reflux disease) ICD Codes: K21.9 - Gastro-esophageal reflux disease without esophagitis (3) Hypertension ICD Codes: I10 - Hypertension Status: Chronic (4) Diabetes ICD Codes: E11.9 - Diabetes Status: Acute Assessment and Plan Patient examined. Assessment and plan formulated with Diann Anaya PA-C. I agree with the above. diabetic foot ulcers and osteo. podiatry to OR today. cont abx. f/u cx's.supportive care. Diann Anaya May 13, 2017 16:12
[2017-05-13 20:00] VITALS: BP 156/74; PULSE 90; RESP 18; TEMP 97.9; O2SAT 99
[2017-05-13] MEDS: TEMAZEPAM 15 MG CAP PO PRN (23:08)
[2017-05-14] VITALS: BP 149/70; PULSE 88; RESP 17; TEMP 97.9; O2SAT 95
[2017-05-14] MEDS: SODIUM CHLORIDE 0.9% FLUSH 10 ML FLUSH IV FLUSH PRN (03:24)
[2017-05-14] MEDS: PIPERACIL-TAZO 3.375 GM PREMIX 50 ML IV SCH ×3 (03:24→15:11)
[2017-05-14 04:00] VITALS: BP 140/70; PULSE 72; PULSE 88; RESP 16; TEMP 98.9; O2SAT 94
--- NOTE | 2017-05-14 07:37 | PD.CARD.PN ---
Subjective Subjective Remarks feeling well. no limb pain, no chest pain or sob. R lower limb with improved warmth and color. (Alba Morrow) Objective Medications Current Medications Medications (Trade) Dose Ordered Sig/Jack Route Start Time Stop Time Status Last Admin (Lasix) 40 mg BID PO 05/10/17 21:00 (KCl) 20 meq BID PO 05/10/17 21:00 05/11/17 21:27 (NS Flush) 2 ml UNSCH PRN IV FLUSH 05/10/17 16:15 05/14/17 03:24 (NS Flush) 2 ml BID IV FLUSH 05/10/17 21:00 05/13/17 21:34 (Tylenol) 650 mg Q4H PRN PO 05/10/17 16:15 (Zofran Inj) 4 mg Q6H PRN IVP 05/10/17 16:15 (Narcan Inj) 0.4 mg UNSCH PRN IV PUSH 05/10/17 16:15 (Amie-Colace) 1 tab BID PO 05/10/17 21:00 05/13/17 21:33 (Milk Of Magnesia Liq) 30 ml Q12H PRN PO 05/10/17 16:15 Pharmacy Profile Note 0 ml @ 0 mls/hr UNSCH OTHER 05/10/17 16:15 Piperacillin Sod/ Tazobactam Sod 50 ml @ 100 mls/hr Q6H IV 05/10/17 20:00 05/14/17 03:24 (D50w (Vial) Inj) 50 ml UNSCH PRN IV PUSH 05/10/17 16:30 (Glucagon Inj) 1 mg UNSCH PRN OTHER 05/10/17 16:30 (NovoLOG SUPPLEMENTAL SCALE) 1 ACHS SLIDING SCALE SQ 05/10/17 17:00 05/13/17 21:30 (Prinivil) 40 mg DAILY PO 05/11/17 09:00 05/12/17 08:00 (Protonix) 20 mg DAILY PO 05/11/17 09:00 05/13/17 08:11 Vancomycin HCl 1750 mg/Sodium Chloride 517.5 ml @ 250 mls/hr Q12H IV 05/10/17 22:00 05/13/17 21:31 (Restoril) 15 mg HS PRN PO 05/12/17 11:30 05/13/17 23:08 (Ecotrin Ec) 81 mg DAILY PO 05/12/17 12:15 05/12/17 12:54 (Plavix) 75 mg DAILY PO 05/12/17 12:15 05/13/17 08:09 (Lipitor) 40 mg DAILY PO 05/12/17 12:15 05/12/17 12:54 Vital Signs / I&O Vital Signs Date Time Temp Pulse Resp B/P (MAP) Pulse Ox O2 Delivery O2 Flow Rate FiO2 05/14/17 04:00 88 05/14/17 04:00 98.9 72 16 140/70 (93) 94 05/14/17 00:00 97.9 88 17 149/70 (96) 95 05/13/17 20:00 97.9 90 18 156/74 (101) 99 05/13/17 16:00 95.4 93 17 155/75 (101) 96 05/13/17 12:03 95 Room Air 05/13/17 08:00 96.8 89 17 136/62 (86) 97 I/O 05/13/17 05/13/17 05/13/17 05/14/17 05/14/17 05/14/17 07:00 15:00 23:00 07:00 15:00 23:00 Intake Total 517.5 ml 530 ml 767.5 ml Output Total 500 ml 1000 ml 1200 ml Balance 17.5 ml -470 ml -432.5 ml Intake Oral 0 ml 480 ml 250 ml IV Total 517.5 ml 50 ml 517.5 ml Output Urine Total 500 ml 1000 ml 1200 ml # Voids 3 # Bowel Movements 2 0 1 Physical Exam GENERAL: SKIN: Warm and dry. HEAD: Atraumatic. Normocephalic. EYES: Pupils equal and round. No scleral icterus. No injection or drainage. ENT: No nasal bleeding or discharge. NECK: Trachea midline. No JVD. CARDIOVASCULAR: Regular rate and rhythm. no murmur RESPIRATORY: No accessory muscle use. Clear to auscultation. Breath sounds equal bilaterally. GASTROINTESTINAL: Abdomen soft, non-tender, nondistended. Hepatic and splenic margins not palpable. MUSCULOSKELETAL: Extremities without clubbing, cyanosis, or edema. No obvious deformities. both feet well wrapped with DOROTEO bandage, lower legs appear less dusky in color. NEUROLOGICAL: Awake and alert. No obvious cranial nerve deficits. Normal speech. PSYCHIATRIC: Appropriate mood and affect; insight and judgment normal. Laboratory Laboratory Tests Test 05/10/17 12:23 05/10/17 12:28 05/11/17 21:40 05/12/17 06:15 Blood Urea Nitrogen 27 MG/DL 13 MG/DL Creatinine 0.84 MG/DL 0.81 MG/DL Random Glucose 127 MG/DL 186 MG/DL Total Protein 7.6 GM/DL Albumin 2.6 GM/DL Calcium Level 8.3 MG/DL 8.0 MG/DL Alkaline Phosphatase 69 U/L Aspartate Amino Transf (AST/SGOT) 28 U/L Alanine Aminotransferase (ALT/SGPT) 27 U/L Total Bilirubin 0.5 MG/DL Sodium Level 134 MEQ/L 138 MEQ/L Potassium Level 4.9 MEQ/L 4.5 MEQ/L Chloride Level 102 MEQ/L 105 MEQ/L Carbon Dioxide Level 25.0 MEQ/L 26.5 MEQ/L C-Reactive Protein 21.10 MG/DL Erythrocyte Sedimentation Rate 100 mm/hr Prothrombin Time 10.8 SEC Prothromb Time International Ratio 1.1 RATIO Activated Partial Thromboplast Time 24.2 SEC Vancomycin Level Trough 13.2 MCG/ML White Blood Count 6.4 TH/MM3 Red Blood Count 3.00 MIL/MM3 Hemoglobin 9.4 GM/DL Hematocrit 27.2 % Mean Corpuscular Volume 90.8 FL Mean Corpuscular Hemoglobin 31.4 PG Mean Corpuscular Hemoglobin Concent 34.6 % Red Cell Distribution Width 13.6 % Platelet Count 224 TH/MM3 Mean Platelet Volume 7.5 FL Neutrophils (%) (Auto) 72.4 % Lymphocytes (%) (Auto) 16.7 % Monocytes (%) (Auto) 9.1 % Eosinophils (%) (Auto) 1.3 % Basophils (%) (Auto) 0.5 % Neutrophils # (Auto) 4.7 TH/MM3 Lymphocytes # (Auto) 1.1 TH/MM3 Monocytes # (Auto) 0.6 TH/MM3 Eosinophils # (Auto) 0.1 TH/MM3 Basophils # (Auto) 0.0 TH/MM3 CBC Comment DIFF FINAL Differential Comment Magnesium Level 2.0 MG/DL Anion Gap 7 MEQ/L Estimat Glomerular Filtration Rate 99 ML/MIN (Alba Morrow) Assessment and Plan Problem List: (1) PAD (peripheral artery disease) ICD Codes: I73.9 - Peripheral vascular disease, unspecified (2) Foot osteomyelitis ICD Codes: M86.9 - Osteomyelitis, unspecified (3) Cellulitis and abscess ICD Codes: L02.91 - Cutaneous abscess, unspecified; L03.90 - Cellulitis and abscess Status: Acute Assessment and Plan 57 yo WM with DM, peripheral neuropathy, HTN, and followed in our office for PAD s/p angioplasty to bilateral lower extremities in 2017 (09/2016: angioplasty to left SFA and left anterior tibial 11/2016: angioplasty to right mid-SFA) and followed by podiatry regularly who presented with bilateral feet infection and concern for R foot osteomyelitis severe PAD- s/p R foot 3rd digit amputation POD #3. podiatry following for bilateral foot ulcerations. RLE angiogram yesterday with atherectomy/DATA CONVERSION ANALYST of PT which collateralizes an occluded AT. consider repeat angio with retrograde access in AT. allow recovery first. cont asa and plavix R lower limb appears less dusky this morning, improved warmth. (Alba Morrow) Assessment and Plan discussed with podiatry He will likely need transmetatarsal amputation will consider percutaneous retrograde attempt at AT early next week. Will discuss timing with Dr. Soto (Fabio Barnes MD) Alba Morrow May 14, 2017 07:37 Fabio Barnes MD May 14, 2017 11:35
[2017-05-14 08:00] VITALS: BP 133/73; PULSE 78; RESP 18; TEMP 96.2; O2SAT 97
[2017-05-14] MEDS: FUROSEMIDE 40 MG TAB PO SCH ×2 (09:00→21:00)
[2017-05-14] MEDS: POTASSIUM CHLORIDE 20 MEQ CONTROLLED RELEASE TAB PO SCH ×2 (09:00→21:00)
[2017-05-14] MEDS: ATORVASTATIN 40 MG TAB PO SCH (09:17)
[2017-05-14] MEDS: ASPIRIN EC 81 MG TABEC PO SCH (09:18)
[2017-05-14] MEDS: CLOPIDOGREL 75 MG TAB PO SCH (09:18)
[2017-05-14] MEDS: LISINOPRIL 20 MG TAB PO SCH (09:18)
[2017-05-14] MEDS: PANTOPRAZOLE SOD 20 MG DELAYED RELEASE TAB PO SCH (09:18)
[2017-05-14] MEDS: DOCUSATE SODIUM 50 MG/SENNA 8.6 MG TAB PO SCH ×2 (09:18→21:10)
[2017-05-14] MEDS: SODIUM CHLORIDE 0.9% FLUSH 10 ML FLUSH IV FLUSH SCH ×2 (09:19→21:10)
[2017-05-14] MEDS: INSULIN ASPART SUPPLEMENTAL SCALE SQ SCH ×4 (09:27→21:08)
--- NOTE | 2017-05-14 10:29 | HHI.PR ---
Subjective Remarks Pt is without any new complaints. Dr. Soto at bedside performing dressing charges at the time of examination Objective Vitals Vital Signs Date Time Temp Pulse Resp B/P (MAP) Pulse Ox O2 Delivery O2 Flow Rate FiO2 05/14/17 08:00 96.2 78 18 133/73 (93) 97 05/14/17 04:00 88 05/14/17 04:00 98.9 72 16 140/70 (93) 94 05/14/17 00:00 97.9 88 17 149/70 (96) 95 05/13/17 20:00 97.9 90 18 156/74 (101) 99 05/13/17 16:00 95.4 93 17 155/75 (101) 96 05/13/17 12:03 95 Room Air Result Diagram: 05/12/17 0615 05/12/17 0615 Imaging Last Impressions Foot X-Ray 05/10/17 0000 Signed Impressions: Service Date/Time: Wednesday, May 10, 2017 12:53 - CONCLUSION: 1. No significant erosive bony change to suggest osteomyelitis as questioned. Meng Gatica MD Foot MRI 05/10/17 0000 Signed Impressions: Service Date/Time: Wednesday, May 10, 2017 13:58 - CONCLUSION: 1. Evidence of cellulitis in the plantar soft tissues about the 4th metatarsal bone. 2. 3. No MR evidence for osteomyelitis: 4. No signal abnormalities and no abnormal enhancement within the osseous structures of the forefoot or midfoot. Adan Camargo MD Chest X-Ray 05/10/17 0000 Signed Impressions: Service Date/Time: Wednesday, May 10, 2017 12:57 - CONCLUSION: 1. No acute cardiopulmonary disease. Meng Gatica MD Last Impressions Foot X-Ray 05/10/17 0000 Signed Impressions: Service Date/Time: Wednesday, May 10, 2017 12:53 - CONCLUSION: 1. No significant erosive bony change to suggest osteomyelitis as questioned. Meng Gatica MD Chest X-Ray 05/10/17 0000 Signed Impressions: Service Date/Time: Wednesday, May 10, 2017 12:57 - CONCLUSION: 1. No acute cardiopulmonary disease. Meng Gatica MD Objective Remarks General: NAD, AAOx3 Chest: CTA Cardiac: Regular Abd: +BS, soft ND/NT Ext: Bilateral feet are bandaged which are c/d/i, RLE edema A/P Problem List: (1) Foot osteomyelitis ICD Codes: M86.9 - Osteomyelitis, unspecified Status: Acute Plan: Osteomyelitis Right foot Cellulitis BLE - This is a 57 year old male patient with DM, HTN and GERD. 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 Frausto for concerns of OM of right foot. Patient reports that he started working at [employer] 03/29/17 which is a job that required walking and lifting, he then started to have blisters. Toward the end of March patient noticed that his left foot opened up then about a week later patient's right foot opened. Then patient's feet began to drain. Patient also had rigors which started last Tuesday and then night sweats Tuesday night. Tuesday night the patient noticed that his sock was covered in blood and his 3rd and 4th toes started to have a change in color. Patient has taken clindamycin and dicloxacillin. Patient was started on Dicloxacillin by patient's PCP Dr. Coker after reviewing results of wound culture. - C reactive protein 21.10 - ESR 100 - MRI Left foot: Evidence of cellulitis in the plantar soft tissue about the 4th metatarsal bone. No MR evidence of osteomyelitis. No signal abnormalities and no abnormal enhancement within the osseous structure of the forefoot or midfoot. - MRI R foot: No evidence of cellulitis plantar soft tissue with some enhancing soft tissue extending to the interdigital space between the 2nd and 4th digits. There is definite signal abnormality in the marrow of the proximal phalanx of the 3rd and 4th digits and possible subtle abnormality in the proximal phalanx of the 2nd digit, suspicious for osteomyelitis. - Podiatry is following - Pt underwent left foot ulcer excisional sharp debridement, right 3rd digit amputation, 2nd and 4th proximal phalanx base bone biopsy, and I&D right foot - Pt was given Vanco and Zosyn in the ER - Wound cultures are growing MRSA, Enterococcus faecalis, Group B beta strep from the cultures on 05/10 - Surgical cultures (05/11) are growing Group D enterococcus and Pseudomonas Sp. - Pathology from right 2nd and 4th phalanx indicating acute osteomyelitis - BC (05/10) with NGTD PAD - Pt previously had angioplasty to left SFA and left anterior tibial (09/2016 ) and angioplasty to right mid-SFA (11/2016) - Surgical report on 05/11 noted right foot with poor blood flow - Cardiology is following - Pt underwent LE angiogram (05/13) --> Successful orbital rotational atherectomy and balloon angioplasty with drug-coated balloon of the severe stenosis within the peroneal vessel, occluded anterior tibial and posterior tibial arteries, and mild descending aortic atherosclerosis. - Pt recommended to continue on aggressive medical therapy. - Case discussed with Dr. Soto on 05/14 and he feels that the pt will not have adequate wound healing without further attempts at restoring blood flow. - He will discuss this with Dr. Barnes today to see if repeat attempt at a retrograde approach in the anterior tibial to try to obtain better revascularization can be made early next week. - ASA and Plavix resumed GERD - Continue home Omeprazole HTN - Continue home Lisinopril 40 mg PO daily - Monitor BP DM type 2 - SSI coverage - Accu checks ACHS - Diabetic diet Lower extremity edema - Lasix 40 mg PO BID - Potassium 20 mg PO BID DVT prophylaxis with SCDs (2) GERD (gastroesophageal reflux disease) ICD Codes: K21.9 - Gastro-esophageal reflux disease without esophagitis (3) Hypertension ICD Codes: I10 - Hypertension Status: Chronic (4) Diabetes ICD Codes: E11.9 - Diabetes Status: Acute Assessment and Plan Patient examined. Assessment and plan formulated with Diann Anaya PA-C. I agree with the above. diabetic foot ulcers and osteo. right 3rd toe amputation and osteo bone bx 2nd /4rth phallanx...in path report says probably osteo 4rth but I see no mention of 2nd toe bx multiorganism growth from surgical cx's on vanco and zosyn. discussed revascularization with dr Barnes and Dr Soto who is at bedside now evaluating the surgical wounds. ID consulted. Diann Anaya May 14, 2017 10:29 Edvin Alarcon MD May 14, 2017 12:59
[2017-05-14] MEDS: VANCOMYCIN INJ 1,750 MG in SODIUM CHLORID 0.9% 500 ML INJ 500 ML IV SCH ×2 (10:36→21:16)
--- NOTE | 2017-05-14 10:44 | PD.POD ---
Subjective Pain score: 0 Remarks Patient feels well, no events overnight Past Med/Surg/Social History Social History Smoking Status: Former Smoker Objective Vital Signs Vital Signs Date Time Temp Pulse Resp B/P (MAP) Pulse Ox O2 Delivery O2 Flow Rate FiO2 05/14/17 08:00 96.2 78 18 133/73 (93) 97 05/14/17 04:00 88 05/14/17 04:00 98.9 72 16 140/70 (93) 94 05/14/17 00:00 97.9 88 17 149/70 (96) 95 05/13/17 20:00 97.9 90 18 156/74 (101) 99 05/13/17 16:00 95.4 93 17 155/75 (101) 96 05/13/17 12:03 95 Room Air Coded Allergies: codeine (Verified Allergy, Severe, HIVES, 05/10/17) sulfamethoxazole (Verified Allergy, Severe, HIVES, 05/10/17) trimethoprim (Verified Allergy, Severe, HIVES, 05/10/17) Medications and IVs Administered Medications Medications (Trade) Dose Ordered Sig/Jack Route PRN Reason Start Time Stop Time Status Last Admin Dose Admin Potassium Chloride (KCl) 20 meq BID PO 05/10/17 21:00 05/11/17 21:27 Sodium Chloride (NS Flush) 2 ml UNSCH PRN IV FLUSH FLUSH AFTER USING IV ACCESS 05/10/17 16:15 05/14/17 03:24 Sodium Chloride (NS Flush) 2 ml BID IV FLUSH 05/10/17 21:00 05/14/17 09:19 Senna/Docusate Sodium (Amie-Colace) 1 tab BID PO 05/10/17 21:00 05/14/17 09:18 Piperacillin Sod/ Tazobactam Sod 50 ml @ 100 mls/hr Q6H IV 05/10/17 20:00 05/14/17 09:17 Insulin Aspart (NovoLOG SUPPLEMENTAL SCALE) 1 ACHS SLIDING SCALE SQ 05/10/17 17:00 05/14/17 09:27 Lisinopril (Prinivil) 40 mg DAILY PO 05/11/17 09:00 05/14/17 09:18 Pantoprazole Sodium (Protonix) 20 mg DAILY PO 05/11/17 09:00 05/14/17 09:18 Vancomycin HCl 1750 mg/Sodium Chloride 517.5 ml @ 250 mls/hr Q12H IV 05/10/17 22:00 05/14/17 10:36 Temazepam (Restoril) 15 mg HS PRN PO insomnia 05/12/17 11:30 05/13/17 23:08 Aspirin (Ecotrin Ec) 81 mg DAILY PO 05/12/17 12:15 05/14/17 09:18 Clopidogrel Bisulfate (Plavix) 75 mg DAILY PO 05/12/17 12:15 05/14/17 09:18 Atorvastatin Calcium (Lipitor) 40 mg DAILY PO 05/12/17 12:15 05/14/17 09:17 Microbiology Date/Time Source Procedure Growth Status 05/11/17 19:18 Wound Foot Fungal Smear - Final NO FUNGAL ELEMENTS SEEN. Resulted 05/11/17 19:18 Wound Foot Fungal Culture Pending Resulted 05/11/17 19:18 Wound Foot Acid Fast Stain - Final NO ACID FAST BACILLI SEEN Resulted 05/11/17 19:18 Wound Foot Mycobacterial Culture Pending Resulted 05/11/17 19:18 Wound Foot Gram Stain - Final Resulted 05/11/17 19:18 Wound Culture - Preliminary Group D Enterococcus Pseudomonas Species Resulted 05/11/17 19:18 Wound Foot Fungal Smear - Final NO FUNGAL ELEMENTS SEEN. Resulted 05/11/17 19:18 Wound Foot Fungal Culture Pending Resulted 05/11/17 19:18 Wound Foot Acid Fast Stain - Final NO ACID FAST BACILLI SEEN Resulted 05/11/17 19:18 Wound Foot Mycobacterial Culture Pending Resulted 05/11/17 19:18 Wound Foot Gram Stain - Final Resulted 05/11/17 19:18 Wound Culture - Preliminary Group D Enterococcus Pseudomonas Species Resulted Physical Exam Remarks Left lower extremity- partial-thickness ulcer plantar aspect forefoot appears to have increased granulation tissue no odor and minimal drainage seen on bandage mild hammertoes noted pulses decreased however foot appears warm sensation decreased light touch Right lower extremity- full-thickness ulceration probing directly to the third metatarsal with minimal bleeding overall wolff fibrotic base of wound that probes to the dorsal aspect of the third amputation digit site there is decrease in erythema, digits 1-4 and 5 remainder have capillary fill time the foot is warm sensation decreased to light touch Assessment & Plan A/P Bilateral foot ulceration, right third digit osteomyelitis, peripheral vascular disease Postop day 1 status post bilateral foot ulcer debridement with right third digit amputation incision and drainage right foot The right foot is not showing signs of progress at this point. High chance of needing further amputation. Left foot appears to be doing well Xeroform placed on the wound. Plan for bedside debridement tomorrow however due to the positive biopsies of the second and fourth digit high chance of needing right transmetatarsal amputation. I will await Dr. conti evaluation for possible second attempt to gain more blood flow to the distal part of the foot. Case reviewed with medicine. Continue IV antibiotics. Continue bed rest. I will see the patient tomorrow for bedside procedure. Ángel Soto DPM May 14, 2017 10:44
[2017-05-14 11:23] LABS: CREATININE 0.85 MG/DL (0.60-1.30)
[2017-05-14 12:00] VITALS: BP 133/71; PULSE 81; RESP 18; TEMP 96.7; O2SAT 97
[2017-05-14 16:00] VITALS: BP 151/78; PULSE 80; RESP 20; TEMP 96.9; O2SAT 98
--- NOTE | 2017-05-14 17:08 | PD.ID.CON ---
History of Present Illness Service ID Consult Requested By Dr Alarcon Reason for Consult DFI osteo R foot Primary Care Physician Christine Coker MD Diagnoses: History of Present Illness 57 yo diabetic male with b/l feet ulcers developped 1 month ago was treated by his primary physician with dicloxacillin unsuccessfully presented to [facility] office with the above proble and was sent to the hospital / sever R foot infection No fever no leukoctosis on admission' MRI + for osteo Arterial study positive for R side disease and CTA is planned Dr Soto on 05/11 performed following procedures: 1. Left foot ulcer, sharp excisional debridement. 2. Right third digit amputation. 3. Second and fourth proximal phalanx incision bone cortex, bone biopsy, and incision and drainage plantar deep abscess right foot. Path positive for osteo present in procx margins Polimictobial culture resuiults: including PSAE, Enterococci in op clx as well as Haemophilus and MRSA and GBS in surface clx Review of Systems Except as stated in HPI: all other systems reviewed are Neg Past Family Social History Allergies: Coded Allergies: codeine (Verified Allergy, Severe, HIVES, 05/10/17) sulfamethoxazole (Verified Allergy, Severe, HIVES, 05/10/17) trimethoprim (Verified Allergy, Severe, HIVES, 05/10/17) Past Medical History DM type 2 with peripheral neuropathy, HTN and GERD Past Surgical History Bilateral lower extremity angiogram with balloon angioplasty on bilateral lower extremities 2017 eye surgery 1972 Active Ordered Medications Medications where reviewed in EMR Antibiotics Include: vanco zosyn 3.375 Family History Mother had DM, lung CA Father at 80 years old had Myelodysplasia Social History Quit smoking 5 years ago smoked 0.5 PPD x 30 years denies ETOH use Physical Exam Vital Signs Vital Signs Date Time Temp Pulse Resp B/P (MAP) Pulse Ox O2 Delivery O2 Flow Rate FiO2 05/14/17 12:00 96.7 81 18 133/71 (91) 97 05/14/17 08:00 96.2 78 18 133/73 (93) 97 05/14/17 04:00 88 05/14/17 04:00 98.9 72 16 140/70 (93) 94 05/14/17 00:00 97.9 88 17 149/70 (96) 95 05/13/17 20:00 97.9 90 18 156/74 (101) 99 Physical Exam CONSTITUTIONAL/GENERAL: This is an obese male patient, in no apparent distress. TUBES/LINES/DRAINS: SKIN: No jaundice, rashes, or lesions. Skin temperature appropriate. Not diaphoretic. HEAD: Atraumatic. Normocephalic. EYES: Pupils equal and round and reactive. Extraocular motions intact. No scleral icterus. No injection or drainage. Fundi not examined. ENT: Hearing grossly normal. Nose without bleeding or purulent drainage. Throat without visible erythema, exudates, masses, or lesions. NECK: Trachea midline. Supple, nontender. No palpable thyroid enlargement or nodularity. CARDIOVASCULAR: Regular rate and rhythm without murmurs, gallops, or rubs. No JVD. Peripheral pulses symmetric. RESPIRATORY/CHEST: Symmetric, unlabored respirations. Clear to auscultation. Breath sounds equal bilaterally. No wheezes, rales, or rhonchi. GASTROINTESTINAL: Abdomen soft, non-tender, nondistended. No hepato-splenomegaly , or palpable masses. No guarding. Bowel sounds present. GENITOURINARY: Without palpable bladder distension. MUSCULOSKELETAL: Extremities without clubbing, cyanosis, or edema. No joint tenderness or effusion noted. No calf tenderness. No mottling or clubbing. L foot with clean plantar ulcer no pus or necrotis R foot sp 4 toe amputaiton, incision clean Plantar ulcer is 50% necrotic + some eryma, edema present LYMPHATICS: No palpable cervical or supraclavicular adenopathy. NEUROLOGICAL: Awake and alert. Motor and sensory grossly within normal limits. Follows commands. Clear speech. Moves all extremities. PSYCHIATRIC: No obvious anxiety/depression. no apparent hallucinations or other psychotic thought process. Laboratory Laboratory Tests Test 05/14/17 09:40 Creatinine 0.85 Estimat Glomerular Filtration Rate 93 Date/Time Source Procedure Growth Status 05/10/17 12:28 Blood Peripheral Aerobic Blood Culture - Preliminary NO GROWTH IN 4 DAYS Resulted 05/10/17 12:28 Blood Peripheral Anaerobic Blood Culture - Preliminary NO GROWTH IN 4 DAYS Resulted 05/11/17 19:18 Wound Foot Fungal Smear - Final NO FUNGAL ELEMENTS SEEN. Resulted 05/11/17 19:18 Wound Foot Fungal Culture Pending Resulted Result Diagram: 05/12/17 0615 05/14/17 0940 Imaging Last Impressions Foot X-Ray 05/10/17 Signed Impressions: Service Date/Time: Wednesday, May 10, 2017 12:53 - CONCLUSION: 1. No significant erosive bony change to suggest osteomyelitis as questioned. Meng Gatica MD Foot MRI 05/10/17 Signed Impressions: Service Date/Time: Wednesday, May 10, 2017 13:58 - CONCLUSION: 1. Evidence of cellulitis in the plantar soft tissues about the 4th metatarsal bone. 2. 3. No MR evidence for osteomyelitis: 4. No signal abnormalities and no abnormal enhancement within the osseous structures of the forefoot or midfoot. Adan Camargo MD Chest X-Ray 05/10/17 Signed Impressions: Service Date/Time: Wednesday, May 10, 2017 12:57 - CONCLUSION: 1. No acute cardiopulmonary disease. Meng Gatica MD Assessment and Plan Assessment and Plan DFI, osteo R foot -polimicrobia including MRSA, PSAE, enterococci and othe r m/o Suspected underlying PVD R foot cont zosyn, increase to 4.5 gm cont vanco monitor GFR closely agree with vasc w/u further rec's to follow per clx results Hilary Farrell MD May 14, 2017 17:08
[2017-05-14 20:00] VITALS: BP 146/78; PULSE 76; RESP 18; TEMP 96.1; O2SAT 99
[2017-05-14] MEDS: TEMAZEPAM 15 MG CAP PO PRN (23:45)
[2017-05-14] MEDS: PIPERACIL-TAZO 4.5 GM PREMIX 100 ML IV SCH (23:45)
[2017-05-15] VITALS (8 sets, daily range): BP systolic 136–160; BP diastolic 63–80; PULSE 77–102; RESP 18–22; TEMP 95.1–96.8; O2SAT 96–99
[2017-05-15] MEDS: PIPERACIL-TAZO 4.5 GM PREMIX 100 ML IV SCH ×4 (04:08→20:27)
[2017-05-15 06:00] LABS: BASOPHIL # 0.1 TH/MM3 (0-0.2); BASOPHIL % 0.9 % (0.0-2.0); EOSINOPHIL # 0.2 TH/MM3 (0-0.4); EOSINOPHIL % 3.2 % (0.0-4.0); HEMATOCRIT 27.2 % (39.0-51.0); HEMOGLOBIN 9.3 GM/DL (13.0-17.0); LYMPH % 19.4 % (9.0-44.0); LYMPHOCYTE # 1.2 TH/MM3 (1.0-4.8); MEAN CELL VOLUME 91.3 FL (80.0-100.0); MEAN CORPUSCULAR HEMOGLOBIN 31.2 PG (27.0-34.0); MEAN CORPUSCULAR HGB CONC 34.2 % (32.0-36.0); MEAN PLATELET VOLUME 7.2 FL (7.0-11.0); MONO % 9.4 % (0.0-8.0); MONOCYTE # 0.6 TH/MM3 (0-0.9); NEUT % 67.1 % (16.0-70.0); PLATELET COUNT 296 TH/MM3 (150-450); RED BLOOD COUNT 2.98 MIL/MM3 (4.50-5.90); RED CELL DISTRIBUTION WIDTH 13.5 % (11.6-17.2); WHITE BLOOD COUNT 5.9 TH/MM3 (4.0-11.0)
[2017-05-15 06:29] LABS: BICARBONATE 26.8 MEQ/L (21.0-32.0); CALCIUM 8.1 MG/DL (8.5-10.1); CREATININE 0.84 MG/DL (0.60-1.30)
[2017-05-15] MEDS: POTASSIUM CHLORIDE 20 MEQ CONTROLLED RELEASE TAB PO SCH ×2 (09:00→20:21)
[2017-05-15] MEDS: FUROSEMIDE 40 MG TAB PO SCH ×2 (09:00→20:21)
--- NOTE | 2017-05-15 09:06 | HHI.PR ---
Subjective Remarks Pt without any new complaints. He is eating and drinking well Having regular BMs Objective Vitals Vital Signs Date Time Temp Pulse Resp B/P (MAP) Pulse Ox O2 Delivery O2 Flow Rate FiO2 05/15/17 04:00 96.5 102 20 145/76 (99) 97 05/15/17 00:05 84 05/15/17 00:00 96.7 83 18 158/80 (106) 96 05/14/17 20:00 96.1 76 18 146/78 (100) 99 05/14/17 16:00 96.9 80 20 151/78 (102) 98 05/14/17 12:00 96.7 81 18 133/71 (91) 97 Result Diagram: 05/15/17 0520 05/15/17 0520 Other Results Laboratory Tests Test 05/14/17 09:40 05/15/17 05:20 Creatinine 0.85 MG/DL 0.84 MG/DL Estimat Glomerular Filtration Rate 93 ML/MIN 95 ML/MIN White Blood Count 5.9 TH/MM3 Red Blood Count 2.98 MIL/MM3 Hemoglobin 9.3 GM/DL Hematocrit 27.2 % Mean Corpuscular Volume 91.3 FL Mean Corpuscular Hemoglobin 31.2 PG Mean Corpuscular Hemoglobin Concent 34.2 % Red Cell Distribution Width 13.5 % Platelet Count 296 TH/MM3 Mean Platelet Volume 7.2 FL Neutrophils (%) (Auto) 67.1 % Lymphocytes (%) (Auto) 19.4 % Monocytes (%) (Auto) 9.4 % Eosinophils (%) (Auto) 3.2 % Basophils (%) (Auto) 0.9 % Neutrophils # (Auto) 4.0 TH/MM3 Lymphocytes # (Auto) 1.2 TH/MM3 Monocytes # (Auto) 0.6 TH/MM3 Eosinophils # (Auto) 0.2 TH/MM3 Basophils # (Auto) 0.1 TH/MM3 CBC Comment DIFF FINAL Differential Comment Blood Urea Nitrogen 9 MG/DL Random Glucose 182 MG/DL Calcium Level 8.1 MG/DL Magnesium Level 2.0 MG/DL Sodium Level 141 MEQ/L Potassium Level 3.8 MEQ/L Chloride Level 109 MEQ/L Carbon Dioxide Level 26.8 MEQ/L Anion Gap 5 MEQ/L Imaging Last Impressions Foot X-Ray 05/10/17 0000 Signed Impressions: Service Date/Time: Wednesday, May 10, 2017 12:53 - CONCLUSION: 1. No significant erosive bony change to suggest osteomyelitis as questioned. Meng Gatica MD Foot MRI 05/10/17 0000 Signed Impressions: Service Date/Time: Wednesday, May 10, 2017 13:58 - CONCLUSION: 1. Evidence of cellulitis in the plantar soft tissues about the 4th metatarsal bone. 2. 3. No MR evidence for osteomyelitis: 4. No signal abnormalities and no abnormal enhancement within the osseous structures of the forefoot or midfoot. Adan Camargo MD Chest X-Ray 05/10/17 0000 Signed Impressions: Service Date/Time: Wednesday, May 10, 2017 12:57 - CONCLUSION: 1. No acute cardiopulmonary disease. Meng Gatica MD Last Impressions Foot X-Ray 05/10/17 0000 Signed Impressions: Service Date/Time: Wednesday, May 10, 2017 12:53 - CONCLUSION: 1. No significant erosive bony change to suggest osteomyelitis as questioned. Meng Gatica MD Chest X-Ray 05/10/17 0000 Signed Impressions: Service Date/Time: Wednesday, May 10, 2017 12:57 - CONCLUSION: 1. No acute cardiopulmonary disease. Meng Gatica MD Objective Remarks General: NAD, AAOx3 Chest: CTA Cardiac: Regular Abd: +BS, soft ND/NT Ext: Bilateral feet are bandaged which are c/d/i, RLE edema improving, increased warmth to the RLE A/P Problem List: (1) Foot osteomyelitis ICD Codes: M86.9 - Osteomyelitis, unspecified Status: Acute Plan: Osteomyelitis Right foot Cellulitis BLE - This is a 57 year old male patient with DM, HTN and GERD. 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 Frausto for concerns of OM of right foot. Patient reports that he started working at [employer] 03/29/17 which is a job that required walking and lifting, he then started to have blisters. Toward the end of March patient noticed that his left foot opened up then about a week later patient's right foot opened. Then patient's feet began to drain. Patient also had rigors which started last Tuesday and then night sweats Tuesday. Tuesday night the patient noticed that his sock was covered in blood and his 3rd and 4th toes started to have a change in color. Patient has taken clindamycin and dicloxacillin. Patient was started on Dicloxacillin by patient's PCP Dr. Coker after reviewing results of wound culture. - C reactive protein 21.10 - ESR 100 - MRI Left foot: Evidence of cellulitis in the plantar soft tissue about the 4th metatarsal bone. No MR evidence of osteomyelitis. No signal abnormalities and no abnormal enhancement within the osseous structure of the forefoot or midfoot. - MRI R foot: No evidence of cellulitis plantar soft tissue with some enhancing soft tissue extending to the interdigital space between the 2nd and 4th digits. There is definite signal abnormality in the marrow of the proximal phalanx of the 3rd and 4th digits and possible subtle abnormality in the proximal phalanx of the 2nd digit, suspicious for osteomyelitis. - Podiatry is following - Pt underwent left foot ulcer excisional sharp debridement, right 3rd digit amputation, 2nd and 4th proximal phalanx base bone biopsy, and I&D right foot - Pt was given Vanco and Zosyn in the ER - Wound cultures are growing MRSA, Enterococcus faecalis, and Group B beta strep from the surface cultures on 05/10 - Surgical cultures (05/11) are growing Enterococcus faecalis, Haemophilus, and Pseudomonas. - ID following - Pt continued on Vancomycin and Zosyn increased to 4.5gm Q6H on 05/14 - Pathology from right 4th phalanx indicating acute osteomyelitis - BC (05/10) with NGTD - Pt to have bedside debridement by Podiatry on 05/15 PAD - Pt previously had angioplasty to left SFA and left anterior tibial (09/2016 ) and angioplasty to right mid-SFA (11/2016) - Surgical report on 05/11 noted right foot with poor blood flow - Cardiology is following - Pt underwent LE angiogram (05/13) --> Successful orbital rotational atherectomy and balloon angioplasty with drug-coated balloon of the severe stenosis within the peroneal vessel, occluded anterior tibial and posterior tibial arteries, and mild descending aortic atherosclerosis. - Pt recommended to continue on aggressive medical therapy. - Case discussed with Dr. Soto on 05/14 and he feels that the pt will not have adequate wound healing without further attempts at restoring blood flow. - He will discuss this with Dr. Barnes today to see if repeat attempt at a retrograde approach in the anterior tibial to try to obtain better revascularization can be made early next week. - ASA and Plavix resumed - Renal function is stable GERD - Continue home Omeprazole HTN - Continue home Lisinopril 40 mg PO daily - Monitor BP DM type 2 - SSI coverage - Accu checks ACHS - Diabetic diet Lower extremity edema - Lasix 40 mg PO BID - Potassium 20 mg PO BID DVT prophylaxis with SCDs (2) GERD (gastroesophageal reflux disease) ICD Codes: K21.9 - Gastro-esophageal reflux disease without esophagitis (3) Hypertension ICD Codes: I10 - Hypertension Status: Chronic (4) Diabetes ICD Codes: E11.9 - Diabetes Status: Acute Assessment and Plan Patient examined. Assessment and plan formulated with Diann Anaya PA-C. I agree with the above. diabetic foot ulcers and osteo. right 3rd toe amputation and osteo bone bx 2nd /4rth phallanx...in path report says probably osteo 4rth but I see no mention of 2nd toe bx polymicrobial growth from surgical cx's on vanco and zosyn. discussed revascularization with dr Barnes and Dr Soto Going for further revascularization attempts tomorrow in anticipation he will need TMA Diann Anaya May 15, 2017 09:06 Edvin Alarcon MD May 15, 2017 15:38
[2017-05-15] MEDS: DOCUSATE SODIUM 50 MG/SENNA 8.6 MG TAB PO SCH ×2 (09:22→20:22)
[2017-05-15] MEDS: PANTOPRAZOLE SOD 20 MG DELAYED RELEASE TAB PO SCH (09:22)
[2017-05-15] MEDS: LISINOPRIL 20 MG TAB PO SCH (09:23)
[2017-05-15] MEDS: CLOPIDOGREL 75 MG TAB PO SCH (09:23)
[2017-05-15] MEDS: ATORVASTATIN 40 MG TAB PO SCH (09:23)
[2017-05-15] MEDS: ASPIRIN EC 81 MG TABEC PO SCH (09:23)
[2017-05-15] MEDS: SODIUM CHLORIDE 0.9% FLUSH 10 ML FLUSH IV FLUSH SCH ×2 (09:24→20:21)
[2017-05-15] MEDS: INSULIN ASPART SUPPLEMENTAL SCALE SQ SCH ×4 (09:30→20:21)
--- NOTE | 2017-05-15 09:41 | PD.CARD.PN ---
Subjective Subjective Remarks feeling well. no limb pain, no chest pain or sob. bilateral lower limbs with improved color. (Alba Morrow) Objective Medications Current Medications Medications (Trade) Dose Ordered Sig/Jack Route Start Time Stop Time Status Last Admin (Lasix) 40 mg BID PO 05/10/17 21:00 (KCl) 20 meq BID PO 05/10/17 21:00 05/11/17 21:27 (NS Flush) 2 ml UNSCH PRN IV FLUSH 05/10/17 16:15 05/14/17 03:24 (NS Flush) 2 ml BID IV FLUSH 05/10/17 21:00 05/15/17 09:24 (Tylenol) 650 mg Q4H PRN PO 05/10/17 16:15 (Zofran Inj) 4 mg Q6H PRN IVP 05/10/17 16:15 (Narcan Inj) 0.4 mg UNSCH PRN IV PUSH 05/10/17 16:15 (Amie-Colace) 1 tab BID PO 05/10/17 21:00 05/15/17 09:22 (Milk Of Linnea Lireji) 30 ml Q12H PRN PO 05/10/17 16:15 Pharmacy Profile Note 0 ml @ 0 mls/hr UNSCH OTHER 05/10/17 16:15 (D50w (Vial) Inj) 50 ml UNSCH PRN IV PUSH 05/10/17 16:30 (Glucagon Inj) 1 mg UNSCH PRN OTHER 05/10/17 16:30 (NovoLOG SUPPLEMENTAL SCALE) 1 ACHS SLIDING SCALE SQ 05/10/17 17:00 05/15/17 09:30 (Prinivil) 40 mg DAILY PO 05/11/17 09:00 05/15/17 09:23 (Protonix) 20 mg DAILY PO 05/11/17 09:00 05/15/17 09:22 Vancomycin HCl 1750 mg/Sodium Chloride 517.5 ml @ 250 mls/hr Q12H IV 05/10/17 22:00 05/14/17 21:16 (Restoril) 15 mg HS PRN PO 05/12/17 11:30 05/14/17 23:45 (Ecotrin Ec) 81 mg DAILY PO 05/12/17 12:15 05/15/17 09:23 (Plavix) 75 mg DAILY PO 05/12/17 12:15 05/15/17 09:23 (Lipitor) 40 mg DAILY PO 05/12/17 12:15 05/15/17 09:23 Miscellaneous Information SPECIFIC LAB TO BE KELVIN... ONCE ONCE .XX 05/15/17 09:45 05/15/17 09:46 05/15/17 09:32 Piperacillin Sod/ Tazobactam Sod 100 ml @ 200 mls/hr Q6H IV 05/14/17 21:00 05/15/17 09:24 Vital Signs / I&O Vital Signs Date Time Temp Pulse Resp B/P (MAP) Pulse Ox O2 Delivery O2 Flow Rate FiO2 05/15/17 08:00 95.1 81 22 136/63 (87) 97 05/15/17 04:00 96.5 102 20 145/76 (99) 97 05/15/17 00:05 84 05/15/17 00:00 96.7 83 18 158/80 (106) 96 05/14/17 20:00 96.1 76 18 146/78 (100) 99 05/14/17 16:00 96.9 80 20 151/78 (102) 98 05/14/17 12:00 96.7 81 18 133/71 (91) 97 I/O 05/14/17 05/14/17 05/14/17 05/15/17 05/15/17 05/15/17 07:00 15:00 23:00 07:00 15:00 23:00 Intake Total 767.5 ml 100 ml 2167 ml 717 ml Output Total 1200 ml 1000 ml 700 ml Balance -432.5 ml 100 ml 1167 ml 17 ml Intake Oral 250 ml 1600 ml IV Total 517.5 ml 100 ml 567 ml 717 ml Output Urine Total 1200 ml 1000 ml 700 ml # Bowel Movements 1 0 Physical Exam GENERAL: SKIN: Warm and dry. HEAD: Atraumatic. Normocephalic. EYES: Pupils equal and round. No scleral icterus. No injection or drainage. ENT: No nasal bleeding or discharge. NECK: Trachea midline. No JVD. CARDIOVASCULAR: Regular rate and rhythm. no murmur RESPIRATORY: No accessory muscle use. Clear to auscultation. Breath sounds equal bilaterally. GASTROINTESTINAL: Abdomen soft, non-tender, nondistended. Hepatic and splenic margins not palpable. MUSCULOSKELETAL: Extremities without clubbing, cyanosis, or edema. No obvious deformities. both feet well wrapped with DOROTEO bandage, lower legs appear less dusky in color. NEUROLOGICAL: Awake and alert. No obvious cranial nerve deficits. Normal speech. PSYCHIATRIC: Appropriate mood and affect; insight and judgment normal. Laboratory Laboratory Tests Test 05/14/17 09:40 05/15/17 05:20 Creatinine 0.85 MG/DL 0.84 MG/DL Estimat Glomerular Filtration Rate 93 ML/MIN 95 ML/MIN White Blood Count 5.9 TH/MM3 Red Blood Count 2.98 MIL/MM3 Hemoglobin 9.3 GM/DL Hematocrit 27.2 % Mean Corpuscular Volume 91.3 FL Mean Corpuscular Hemoglobin 31.2 PG Mean Corpuscular Hemoglobin Concent 34.2 % Red Cell Distribution Width 13.5 % Platelet Count 296 TH/MM3 Mean Platelet Volume 7.2 FL Neutrophils (%) (Auto) 67.1 % Lymphocytes (%) (Auto) 19.4 % Monocytes (%) (Auto) 9.4 % Eosinophils (%) (Auto) 3.2 % Basophils (%) (Auto) 0.9 % Neutrophils # (Auto) 4.0 TH/MM3 Lymphocytes # (Auto) 1.2 TH/MM3 Monocytes # (Auto) 0.6 TH/MM3 Eosinophils # (Auto) 0.2 TH/MM3 Basophils # (Auto) 0.1 TH/MM3 CBC Comment DIFF FINAL Differential Comment Blood Urea Nitrogen 9 MG/DL Random Glucose 182 MG/DL Calcium Level 8.1 MG/DL Magnesium Level 2.0 MG/DL Sodium Level 141 MEQ/L Potassium Level 3.8 MEQ/L Chloride Level 109 MEQ/L Carbon Dioxide Level 26.8 MEQ/L Anion Gap 5 MEQ/L (Alba Morrow) Assessment and Plan Problem List: (1) PAD (peripheral artery disease) ICD Codes: I73.9 - Peripheral vascular disease, unspecified (2) Foot osteomyelitis ICD Codes: M86.9 - Osteomyelitis, unspecified Status: Acute (3) Cellulitis and abscess ICD Codes: L02.91 - Cutaneous abscess, unspecified; L03.90 - Cellulitis and abscess Status: Acute Assessment and Plan 57 yo WM with DM, peripheral neuropathy, HTN, and followed in our office for PAD s/p angioplasty to bilateral lower extremities in 2017 (09/2016: angioplasty to left SFA and left anterior tibial 11/2016: angioplasty to right mid-SFA) and followed by podiatry regularly who presented with bilateral feet infection and concern for R foot osteomyelitis severe PAD- s/p R foot 3rd digit amputation POD #4. podiatry following for bilateral foot ulcerations; will likely require transmetatarsal amputation. bedside debridement planned for today RLE angiogram 05/13: atherectomy/SHOP LEAD of PT which collateralizes an occluded AT. consider repeat angio with retrograde access in AT early next week. will discuss with podiatry. cont asa and plavix (Alba Morrow) Assessment and Plan doppler PT strong Podiatry planning transmetatarsal amputation soon continue ATBx attempt retrograde dorsalis pedis approach at AT for improved inflow for TMA NPO p MN (Fabio Barnes MD) Alba Morrow May 15, 2017 09:41 Fabio Barnes MD May 15, 2017 11:52
[2017-05-15] MEDS ORDERED: PHARMACY ORDERED LAB ONE (09:45)
[2017-05-15] MEDS: SODIUM CHLOR 0.9% 1000 ML INJ 1,000 ML IV SCH ×2 (11:52→20:22)
[2017-05-15] MEDS: VANCOMYCIN INJ 1,750 MG in SODIUM CHLORID 0.9% 500 ML INJ 500 ML IV SCH ×2 (12:13→22:21)
--- NOTE | 2017-05-15 12:17 | PD.POD ---
Subjective Pain score: 0 Remarks Patient feels well, no events overnight Past Med/Surg/Social History Social History Smoking Status: Former Smoker Objective Vital Signs Vital Signs Date Time Temp Pulse Resp B/P (MAP) Pulse Ox O2 Delivery O2 Flow Rate FiO2 05/15/17 08:00 95.1 81 22 136/63 (87) 97 05/15/17 04:00 96.5 102 20 145/76 (99) 97 05/15/17 00:05 84 05/15/17 00:00 96.7 83 18 158/80 (106) 96 05/14/17 20:00 96.1 76 18 146/78 (100) 99 05/14/17 16:00 96.9 80 20 151/78 (102) 98 Coded Allergies: codeine (Verified Allergy, Severe, HIVES, 05/10/17) sulfamethoxazole (Verified Allergy, Severe, HIVES, 05/10/17) trimethoprim (Verified Allergy, Severe, HIVES, 05/10/17) Medications and IVs Administered Medications Medications (Trade) Dose Ordered Sig/Jack Route PRN Reason Start Time Stop Time Status Last Admin Dose Admin Potassium Chloride (KCl) 20 meq BID PO 05/10/17 21:00 05/11/17 21:27 Sodium Chloride (NS Flush) 2 ml UNSCH PRN IV FLUSH FLUSH AFTER USING IV ACCESS 05/10/17 16:15 05/14/17 03:24 Sodium Chloride (NS Flush) 2 ml BID IV FLUSH 05/10/17 21:00 05/15/17 09:24 Senna/Docusate Sodium (Amie-Colace) 1 tab BID PO 05/10/17 21:00 05/15/17 09:22 Insulin Aspart (NovoLOG SUPPLEMENTAL SCALE) 1 ACHS SLIDING SCALE SQ 05/10/17 17:00 05/15/17 09:30 Lisinopril (Prinivil) 40 mg DAILY PO 05/11/17 09:00 05/15/17 09:23 Pantoprazole Sodium (Protonix) 20 mg DAILY PO 05/11/17 09:00 05/15/17 09:22 Vancomycin HCl 1750 mg/Sodium Chloride 517.5 ml @ 250 mls/hr Q12H IV 05/10/17 22:00 05/14/17 21:16 Temazepam (Restoril) 15 mg HS PRN PO insomnia 05/12/17 11:30 05/14/17 23:45 Aspirin (Ecotrin Ec) 81 mg DAILY PO 05/12/17 12:15 05/15/17 09:23 Clopidogrel Bisulfate (Plavix) 75 mg DAILY PO 05/12/17 12:15 05/15/17 09:23 Atorvastatin Calcium (Lipitor) 40 mg DAILY PO 05/12/17 12:15 05/15/17 09:23 Piperacillin Sod/ Tazobactam Sod 100 ml @ 200 mls/hr Q6H IV 05/14/17 21:00 05/15/17 09:24 Laboratory Tests Test 05/15/17 05:20 White Blood Count 5.9 TH/MM3 Red Blood Count 2.98 MIL/MM3 Hemoglobin 9.3 GM/DL Hematocrit 27.2 % Mean Corpuscular Volume 91.3 FL Mean Corpuscular Hemoglobin 31.2 PG Mean Corpuscular Hemoglobin Concent 34.2 % Red Cell Distribution Width 13.5 % Platelet Count 296 TH/MM3 Mean Platelet Volume 7.2 FL Neutrophils (%) (Auto) 67.1 % Lymphocytes (%) (Auto) 19.4 % Monocytes (%) (Auto) 9.4 % Eosinophils (%) (Auto) 3.2 % Basophils (%) (Auto) 0.9 % Neutrophils # (Auto) 4.0 TH/MM3 Lymphocytes # (Auto) 1.2 TH/MM3 Monocytes # (Auto) 0.6 TH/MM3 Eosinophils # (Auto) 0.2 TH/MM3 Basophils # (Auto) 0.1 TH/MM3 CBC Comment DIFF FINAL Differential Comment Laboratory Tests Test 05/14/17 09:40 05/15/17 05:20 Creatinine 0.85 MG/DL 0.84 MG/DL Estimat Glomerular Filtration Rate 93 ML/MIN 95 ML/MIN Blood Urea Nitrogen 9 MG/DL Random Glucose 182 MG/DL Calcium Level 8.1 MG/DL Magnesium Level 2.0 MG/DL Sodium Level 141 MEQ/L Potassium Level 3.8 MEQ/L Chloride Level 109 MEQ/L Carbon Dioxide Level 26.8 MEQ/L Anion Gap 5 MEQ/L Physical Exam Remarks Left lower extremity- partial-thickness ulcer plantar aspect forefoot appears to have increased granulation tissue no odor and minimal drainage seen on bandage mild hammertoes noted pulses decreased however foot appears warm sensation decreased light touch Right lower extremity- full-thickness ulceration probing directly to the third metatarsal with minimal bleeding overall wolff fibrotic base of wound that probes to the dorsal aspect of the third amputation digit site there is decrease in erythema, digits 1-4 and 5 remainder have capillary fill time the foot is warm sensation decreased to light touch Assessment & Plan A/P Bilateral foot ulceration, right third digit osteomyelitis, peripheral vascular disease status post bilateral foot ulcer debridement with right third digit amputation incision and drainage right foot The right foot is not showing signs of progress at this point. High chance of needing further amputation. Left foot appears to be doing well Xeroform placed on the wound. Hold debridement, tomorrow Vascular intervention scheduled. Reviewed will need TMA on the right next week, left foot possible skingraft skin substitute. Will sign out to Dr Valencia who will assume care tomorrow. Reviewed case with Dr Barnes. Appreciate ID recs. Ángel Soto DPM May 15, 2017 12:17
[2017-05-15] MEDS: TEMAZEPAM 15 MG CAP PO PRN (23:23)
[2017-05-16] VITALS: BP 151/78; PULSE 76; RESP 18; TEMP 96.9; O2SAT 97
[2017-05-16] MEDS: PIPERACIL-TAZO 4.5 GM PREMIX 100 ML IV SCH ×4 (02:44→21:16)
[2017-05-16] MEDS: SODIUM CHLOR 0.9% 1000 ML INJ 1,000 ML IV SCH ×3 (02:45→21:22)
[2017-05-16 08:00] VITALS: BP 175/82; PULSE 71; RESP 20; TEMP 95.3; O2SAT 97
[2017-05-16] MEDS: INSULIN ASPART SUPPLEMENTAL SCALE SQ SCH ×4 (08:00→21:00)
[2017-05-16 08:45] LABS: CREATININE 0.87 MG/DL (0.60-1.30)
[2017-05-16] MEDS: PANTOPRAZOLE SOD 20 MG DELAYED RELEASE TAB PO SCH (08:45)
[2017-05-16] MEDS: DOCUSATE SODIUM 50 MG/SENNA 8.6 MG TAB PO SCH ×2 (08:45→21:15)
[2017-05-16] MEDS: ASPIRIN EC 81 MG TABEC PO SCH (08:45)
[2017-05-16] MEDS: CLOPIDOGREL 75 MG TAB PO SCH (08:45)
[2017-05-16] MEDS: ATORVASTATIN 40 MG TAB PO SCH (08:46)
[2017-05-16] MEDS: LISINOPRIL 20 MG TAB PO SCH (08:46)
[2017-05-16] MEDS: SODIUM CHLORIDE 0.9% FLUSH 10 ML FLUSH IV FLUSH SCH ×2 (08:47→21:16)
[2017-05-16] MEDS: POTASSIUM CHLORIDE 20 MEQ CONTROLLED RELEASE TAB PO SCH ×2 (08:47→21:00)
[2017-05-16] MEDS: FUROSEMIDE 40 MG TAB PO SCH ×2 (08:47→21:00)
[2017-05-16] MEDS: VANCOMYCIN INJ 1,750 MG in SODIUM CHLORID 0.9% 500 ML INJ 500 ML IV SCH ×2 (08:48→22:48)
--- NOTE | 2017-05-16 09:25 | HHI.PR ---
Subjective Remarks No new complaints Pt going to LE catheterization for attempt at revascularization today Objective Vitals Vital Signs Date Time Temp Pulse Resp B/P (MAP) Pulse Ox O2 Delivery O2 Flow Rate FiO2 05/16/17 08:00 95.3 71 20 175/82 (113) 97 05/16/17 00:00 96.9 76 18 151/78 (102) 97 05/15/17 20:00 96.2 81 18 155/73 (100) 98 05/15/17 19:47 82 05/15/17 16:00 96.8 88 20 156/74 (101) 99 05/15/17 12:00 96.5 77 20 160/74 (102) 99 Result Diagram: 05/15/17 0520 05/16/17 0705 Other Results Laboratory Tests Test 05/14/17 09:40 05/15/17 05:20 05/15/17 10:10 05/16/17 07:05 Creatinine 0.85 MG/DL 0.84 MG/DL 0.87 MG/DL Estimat Glomerular Filtration Rate 93 ML/MIN 95 ML/MIN 91 ML/MIN White Blood Count 5.9 TH/MM3 Red Blood Count 2.98 MIL/MM3 Hemoglobin 9.3 GM/DL Hematocrit 27.2 % Mean Corpuscular Volume 91.3 FL Mean Corpuscular Hemoglobin 31.2 PG Mean Corpuscular Hemoglobin Concent 34.2 % Red Cell Distribution Width 13.5 % Platelet Count 296 TH/MM3 Mean Platelet Volume 7.2 FL Neutrophils (%) (Auto) 67.1 % Lymphocytes (%) (Auto) 19.4 % Monocytes (%) (Auto) 9.4 % Eosinophils (%) (Auto) 3.2 % Basophils (%) (Auto) 0.9 % Neutrophils # (Auto) 4.0 TH/MM3 Lymphocytes # (Auto) 1.2 TH/MM3 Monocytes # (Auto) 0.6 TH/MM3 Eosinophils # (Auto) 0.2 TH/MM3 Basophils # (Auto) 0.1 TH/MM3 CBC Comment DIFF FINAL Differential Comment Blood Urea Nitrogen 9 MG/DL Random Glucose 182 MG/DL Calcium Level 8.1 MG/DL Magnesium Level 2.0 MG/DL Sodium Level 141 MEQ/L Potassium Level 3.8 MEQ/L Chloride Level 109 MEQ/L Carbon Dioxide Level 26.8 MEQ/L Anion Gap 5 MEQ/L Vancomycin Level Trough 14.8 MCG/ML Imaging Last Impressions Foot X-Ray 05/10/17 0000 Signed Impressions: Service Date/Time: Wednesday, May 10, 2017 12:53 - CONCLUSION: 1. No significant erosive bony change to suggest osteomyelitis as questioned. Meng Gatica MD Foot MRI 05/10/17 0000 Signed Impressions: Service Date/Time: Wednesday, May 10, 2017 13:58 - CONCLUSION: 1. Evidence of cellulitis in the plantar soft tissues about the 4th metatarsal bone. 2. 3. No MR evidence for osteomyelitis: 4. No signal abnormalities and no abnormal enhancement within the osseous structures of the forefoot or midfoot. Adan Camargo MD Chest X-Ray 05/10/17 0000 Signed Impressions: Service Date/Time: Wednesday, May 10, 2017 12:57 - CONCLUSION: 1. No acute cardiopulmonary disease. Meng Gatica MD Last Impressions Foot X-Ray 05/10/17 0000 Signed Impressions: Service Date/Time: Wednesday, May 10, 2017 12:53 - CONCLUSION: 1. No significant erosive bony change to suggest osteomyelitis as questioned. Meng Gatica MD Chest X-Ray 05/10/17 0000 Signed Impressions: Service Date/Time: Wednesday, May 10, 2017 12:57 - CONCLUSION: 1. No acute cardiopulmonary disease. Meng Gatica MD Objective Remarks General: NAD, AAOx3 Chest: CTA Cardiac: Regular Abd: +BS, soft ND/NT Ext: Bilateral feet are bandaged which are c/d/i, RLE edema improving, increased warmth to the RLE A/P Problem List: (1) Foot osteomyelitis ICD Codes: M86.9 - Osteomyelitis, unspecified Status: Acute Plan: Osteomyelitis Right foot Cellulitis BLE - This is a 57 year old male patient with DM, HTN and GERD. 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 Frausto for concerns of OM of right foot. Patient reports that he started working at [employer] 03/29/17 which is a job that required walking and lifting, he then started to have blisters. Toward the end of March patient noticed that his left foot opened up then about a week later patient's right foot opened. Then patient's feet began to drain. Patient also had rigors which started last Tuesday and then night sweats Tuesday night. Tuesday night the patient noticed that his sock was covered in blood and his 3rd and 4th toes started to have a change in color. Patient has taken clindamycin and dicloxacillin. Patient was started on Dicloxacillin by patient's PCP Dr. Coker after reviewing results of wound culture. - C reactive protein 21.10 - ESR 100 - MRI Left foot: Evidence of cellulitis in the plantar soft tissue about the 4th metatarsal bone. No MR evidence of osteomyelitis. No signal abnormalities and no abnormal enhancement within the osseous structure of the forefoot or midfoot. - MRI R foot: No evidence of cellulitis plantar soft tissue with some enhancing soft tissue extending to the interdigital space between the 2nd and 4th digits. There is definite signal abnormality in the marrow of the proximal phalanx of the 3rd and 4th digits and possible subtle abnormality in the proximal phalanx of the 2nd digit, suspicious for osteomyelitis. - Podiatry is following - Pt underwent left foot ulcer excisional sharp debridement, right 3rd digit amputation, 2nd and 4th proximal phalanx base bone biopsy, and I&D right foot - Pt was given Vanco and Zosyn in the ER - Wound cultures are growing MRSA, Enterococcus faecalis, and Group B beta strep from the surface cultures on 05/10 - Surgical cultures (05/11) are growing Enterococcus faecalis, Haemophilus, and Pseudomonas. - ID following - Pt continued on Vancomycin and Zosyn increased to 4.5gm Q6H on 05/14 - Pathology from right 4th phalanx indicating acute osteomyelitis - BC (05/10) with NGTD - Pt had been planned for bedside debridement by Podiatry on 05/15 but this was held off on in lieu of the revascularization procedure today PAD - Pt previously had angioplasty to left SFA and left anterior tibial (09/2016 ) and angioplasty to right mid-SFA (11/2016) - Surgical report on 05/11 noted right foot with poor blood flow - Cardiology is following - Pt underwent LE angiogram (05/13) --> Successful orbital rotational atherectomy and balloon angioplasty with drug-coated balloon of the severe stenosis within the peroneal vessel, occluded anterior tibial and posterior tibial arteries, and mild descending aortic atherosclerosis. - Pt recommended to continue on aggressive medical therapy. - Case discussed with Dr. Soto on 05/14 and he feels that the pt will not have adequate wound healing without further attempts at restoring blood flow. - Pt going for repeat attempt at a retrograde approach in the anterior tibial to try to obtain better revascularization today - ASA and Plavix resumed - Renal function is stable GERD - Continue home Omeprazole HTN - Continue home Lisinopril 40 mg PO daily - Monitor BP DM type 2 - SSI coverage - Accu checks ACHS - Diabetic diet Lower extremity edema - Lasix 40 mg PO BID - Potassium 20 mg PO BID DVT prophylaxis with SCDs (2) GERD (gastroesophageal reflux disease) ICD Codes: K21.9 - Gastro-esophageal reflux disease without esophagitis (3) Hypertension ICD Codes: I10 - Hypertension Status: Chronic (4) Diabetes ICD Codes: E11.9 - Diabetes Status: Acute Assessment and Plan Patient examined. Assessment and plan formulated with Diann Anaya PA-C. I agree with the above. Diann Anaya May 16, 2017 09:25 Rhys Hassan DO May 18, 2017 12:42
--- NOTE | 2017-05-16 09:29 | PD.CARD.PN ---
Subjective Subjective Remarks feeling well. no limb pain, no chest pain or sob. bilateral lower limbs with improved color. (Alba Morrow) Objective Medications Current Medications Medications (Trade) Dose Ordered Sig/Jack Route Start Time Stop Time Status Last Admin (Lasix) 40 mg BID PO 05/10/17 21:00 (KCl) 20 meq BID PO 05/10/17 21:00 05/11/17 21:27 (NS Flush) 2 ml UNSCH PRN IV FLUSH 05/10/17 16:15 05/14/17 03:24 (NS Flush) 2 ml BID IV FLUSH 05/10/17 21:00 05/15/17 20:21 (Tylenol) 650 mg Q4H PRN PO 05/10/17 16:15 (Zofran Inj) 4 mg Q6H PRN IVP 05/10/17 16:15 (Narcan Inj) 0.4 mg UNSCH PRN IV PUSH 05/10/17 16:15 (Amie-Colace) 1 tab BID PO 05/10/17 21:00 05/16/17 08:45 (Milk Of Magnray Liq) 30 ml Q12H PRN PO 05/10/17 16:15 Pharmacy Profile Note 0 ml @ 0 mls/hr UNSCH OTHER 05/10/17 16:15 (D50w (Vial) Inj) 50 ml UNSCH PRN IV PUSH 05/10/17 16:30 (Glucagon Inj) 1 mg UNSCH PRN OTHER 05/10/17 16:30 (NovoLOG SUPPLEMENTAL SCALE) 1 ACHS SLIDING SCALE SQ 05/10/17 17:00 05/15/17 20:21 (Prinivil) 40 mg DAILY PO 05/11/17 09:00 05/16/17 08:46 (Protonix) 20 mg DAILY PO 05/11/17 09:00 05/16/17 08:45 Vancomycin HCl 1750 mg/Sodium Chloride 517.5 ml @ 250 mls/hr Q12H IV 05/10/17 22:00 05/16/17 08:48 (Restoril) 15 mg HS PRN PO 05/12/17 11:30 05/15/17 23:23 (Ecotrin Ec) 81 mg DAILY PO 05/12/17 12:15 05/16/17 08:45 (Plavix) 75 mg DAILY PO 05/12/17 12:15 05/16/17 08:45 (Lipitor) 40 mg DAILY PO 05/12/17 12:15 05/16/17 08:46 Piperacillin Sod/ Tazobactam Sod 100 ml @ 200 mls/hr Q6H IV 05/14/17 21:00 05/16/17 08:48 Sodium Chloride 1,000 ml @ 100 mls/hr Q10H IV 05/15/17 11:52 05/20/17 11:51 05/16/17 02:45 Vital Signs / I&O Vital Signs Date Time Temp Pulse Resp B/P (MAP) Pulse Ox O2 Delivery O2 Flow Rate FiO2 05/16/17 08:00 95.3 71 20 175/82 (113) 97 05/16/17 00:00 96.9 76 18 151/78 (102) 97 05/15/17 20:00 96.2 81 18 155/73 (100) 98 05/15/17 19:47 82 05/15/17 16:00 96.8 88 20 156/74 (101) 99 05/15/17 12:00 96.5 77 20 160/74 (102) 99 I/O 05/15/17 05/15/17 05/15/17 05/16/17 05/16/17 05/16/17 07:00 15:00 23:00 07:00 15:00 23:00 Intake Total 717 ml 2300 ml 515 ml Output Total 700 ml 1200 ml 1100 ml Balance 17 ml 1100 ml -585 ml Intake Oral 2200 ml IV Total 717 ml 100 ml 515 ml Output Urine Total 700 ml 1200 ml 1100 ml # Bowel Movements 1 Physical Exam GENERAL: SKIN: Warm and dry. HEAD: Atraumatic. Normocephalic. EYES: Pupils equal and round. No scleral icterus. No injection or drainage. ENT: No nasal bleeding or discharge. NECK: Trachea midline. No JVD. CARDIOVASCULAR: Regular rate and rhythm. no murmur RESPIRATORY: No accessory muscle use. Clear to auscultation. Breath sounds equal bilaterally. GASTROINTESTINAL: Abdomen soft, non-tender, nondistended. Hepatic and splenic margins not palpable. MUSCULOSKELETAL: Extremities without clubbing, cyanosis, or edema. No obvious deformities. both feet well wrapped with DOROTEO bandage, lower legs appear less dusky in color. NEUROLOGICAL: Awake and alert. No obvious cranial nerve deficits. Normal speech. PSYCHIATRIC: Appropriate mood and affect; insight and judgment normal. Laboratory Laboratory Tests Test 05/15/17 10:10 05/16/17 07:05 Vancomycin Level Trough 14.8 MCG/ML Creatinine 0.87 MG/DL Estimat Glomerular Filtration Rate 91 ML/MIN (Alba Morrow) Assessment and Plan Problem List: (1) PAD (peripheral artery disease) ICD Codes: I73.9 - Peripheral vascular disease, unspecified (2) Foot osteomyelitis ICD Codes: M86.9 - Osteomyelitis, unspecified Status: Acute (3) Cellulitis and abscess ICD Codes: L02.91 - Cutaneous abscess, unspecified; L03.90 - Cellulitis and abscess Status: Acute Assessment and Plan 57 yo WM with DM, peripheral neuropathy, HTN, and followed in our office for PAD s/p angioplasty to bilateral lower extremities in 2017 (09/2016: angioplasty to left SFA and left anterior tibial 11/2016: angioplasty to right mid-SFA) and followed by podiatry regularly who presented with bilateral feet infection and concern for R foot osteomyelitis severe PAD- s/p R foot 3rd digit amputation POD #4. podiatry following for bilateral foot ulcerations. will likely require transmetatarsal amputation RLE angiogram 05/13: atherectomy/[employer] of PT which collateralizes an occluded AT. plan for repeat angio with retrograde access in AT today (Alba Mororw) Assessment and Plan Peripheral angio successful retrograde revascularization of anterior tibial artery peroneal artery widely patent good two vessel runoff (Fabio Barnes MD) Alba Morrow May 16, 2017 09:29 Fabio Barnes MD May 16, 2017 16:50
[2017-05-16 12:00] VITALS: BP 160/82; PULSE 77; RESP 18; TEMP 96.2; O2SAT 99
[2017-05-16] MEDS ORDERED: HEPARIN-NS/PF FLUSH BAG 2,000 ML IV FLUSH ONE (13:23)
[2017-05-16] MEDS ORDERED: MIDAZOLAM HCL 2 MG/2 ML VIAL ONE ×2 (13:23→14:02)
[2017-05-16] MEDS ORDERED: HEPARIN SODIUM - IV 10,000 UNITS/10 ML VIAL ONE (13:32)
[2017-05-16] MEDS ORDERED: HEPARIN-NS/PF FLUSH BAG 1,000 ML IV FLUSH ONE (14:14)
[2017-05-16] MEDS ORDERED: ADENOSINE IV SOLN 3 MG/ML 2 ML VIAL ONE (15:51)
[2017-05-16] MEDS ORDERED: IOHEXOL 350 MG/ML 50 ML BTL (for Cath Lab) OTHER ONE (16:57)
[2017-05-16] MEDS ORDERED: LIDOCAINE HCL 1% 50 ML VIAL INFIL PRN (17:00)
[2017-05-16] MEDS ORDERED: SODIUM CHLOR 0.9% 250 ML INJ 250 ML IV PRN (17:00)
[2017-05-16] MEDS ORDERED: ATROPINE SULFATE 1 MG/ML VIAL IV PUSH PRN (17:00)
[2017-05-16] MEDS ORDERED: NIFEdipine 60 MG SUSTAINED RELEASE TAB PO ONE (18:00)
[2017-05-16] MEDS: ENALAPRILAT 1.25 MG/ML VIAL IV PUSH PRN ×2 (18:21→21:16)
[2017-05-16] MEDS ORDERED: hydrALAZINE HCL 20 MG/ML VIAL ONE (18:40)
[2017-05-16] MEDS ORDERED: hydrALAZINE HCL 20 MG/ML VIAL IV PUSH PRN (19:15)
[2017-05-16] MEDS ORDERED: cloNIDine HCL 0.1 MG TAB PO PRN (19:15)
[2017-05-16 20:00] VITALS: PULSE 106
[2017-05-16 20:21] VITALS: BP 176/77; PULSE 84; RESP 20; TEMP 97.4; O2SAT 97
[2017-05-16] MEDS: TEMAZEPAM 15 MG CAP PO PRN (22:56)
[2017-05-16 23:44] VITALS: PULSE 92
[2017-05-17] VITALS (7 sets, daily range): BP systolic 129–154; BP diastolic 62–79; PULSE 83–96; RESP 18–20; TEMP 96.2–98.9; O2SAT 98–99
[2017-05-17] MEDS: PIPERACIL-TAZO 4.5 GM PREMIX 100 ML IV SCH ×4 (02:30→21:14)
[2017-05-17] MEDS: SODIUM CHLOR 0.9% 1000 ML INJ 1,000 ML IV SCH ×4 (02:44→23:52)
[2017-05-17 07:40] LABS: AUTOMATED NEUTROPHIL # 4.9 TH/MM3 (1.8-7.7); BASOPHIL # 0.1 TH/MM3 (0-0.2); BASOPHIL % 0.8 % (0.0-2.0); EOSINOPHIL # 0.2 TH/MM3 (0-0.4); EOSINOPHIL % 2.9 % (0.0-4.0); HEMATOCRIT 28.1 % (39.0-51.0); HEMOGLOBIN 9.7 GM/DL (13.0-17.0); LYMPH % 16.1 % (9.0-44.0); LYMPHOCYTE # 1.1 TH/MM3 (1.0-4.8); MEAN CELL VOLUME 91.2 FL (80.0-100.0); MEAN CORPUSCULAR HEMOGLOBIN 31.6 PG (27.0-34.0); MEAN CORPUSCULAR HGB CONC 34.7 % (32.0-36.0); MEAN PLATELET VOLUME 7.2 FL (7.0-11.0); MONO % 9.7 % (0.0-8.0); MONOCYTE # 0.7 TH/MM3 (0-0.9); NEUT % 70.5 % (16.0-70.0); PLATELET COUNT 338 TH/MM3 (150-450); RED BLOOD COUNT 3.08 MIL/MM3 (4.50-5.90); RED CELL DISTRIBUTION WIDTH 13.8 % (11.6-17.2)
[2017-05-17 08:03] LABS: BICARBONATE 25.2 MEQ/L (21.0-32.0); CALCIUM 8.2 MG/DL (8.5-10.1); CREATININE 0.82 MG/DL (0.60-1.30); MAGNESIUM 1.8 MG/DL (1.5-2.5)
--- NOTE | 2017-05-17 08:35 | PD.CARD.PN ---
Subjective Subjective Remarks no complaints Objective Medications Current Medications Medications (Trade) Dose Ordered Sig/Jack Route Start Time Stop Time Status Last Admin (Lasix) 40 mg BID PO 05/10/17 21:00 (KCl) 20 meq BID PO 05/10/17 21:00 05/11/17 21:27 (NS Flush) 2 ml UNSCH PRN IV FLUSH 05/10/17 16:15 05/14/17 03:24 (NS Flush) 2 ml BID IV FLUSH 05/10/17 21:00 05/16/17 21:16 (Tylenol) 650 mg Q4H PRN PO 05/10/17 16:15 (Zofran Inj) 4 mg Q6H PRN IVP 05/10/17 16:15 (Narcan Inj) 0.4 mg UNSCH PRN IV PUSH 05/10/17 16:15 (Amie-Colace) 1 tab BID PO 05/10/17 21:00 05/16/17 21:15 (Milk Of Magnesia Liq) 30 ml Q12H PRN PO 05/10/17 16:15 Pharmacy Profile Note 0 ml @ 0 mls/hr UNSCH OTHER 05/10/17 16:15 (D50w (Vial) Inj) 50 ml UNSCH PRN IV PUSH 05/10/17 16:30 (Glucagon Inj) 1 mg UNSCH PRN OTHER 05/10/17 16:30 (NovoLOG SUPPLEMENTAL SCALE) 1 ACHS SLIDING SCALE SQ 05/10/17 17:00 05/16/17 21:00 (Prinivil) 40 mg DAILY PO 05/11/17 09:00 05/16/17 08:46 (Protonix) 20 mg DAILY PO 05/11/17 09:00 05/16/17 08:45 Vancomycin HCl 1750 mg/Sodium Chloride 517.5 ml @ 250 mls/hr Q12H IV 05/10/17 22:00 05/16/17 22:48 (Restoril) 15 mg HS PRN PO 05/12/17 11:30 05/16/17 22:56 (Ecotrin Ec) 81 mg DAILY PO 05/12/17 12:15 05/16/17 08:45 (Plavix) 75 mg DAILY PO 05/12/17 12:15 05/16/17 08:45 (Lipitor) 40 mg DAILY PO 05/12/17 12:15 05/16/17 08:46 Piperacillin Sod/ Tazobactam Sod 100 ml @ 200 mls/hr Q6H IV 05/14/17 21:00 05/17/17 02:30 Sodium Chloride 1,000 ml @ 100 mls/hr Q10H IV 05/15/17 11:52 05/20/17 11:51 05/16/17 02:45 (Atropine Inj) 0.5 mg UNSCH PRN IV PUSH 05/16/17 17:00 Sodium Chloride 250 ml @ 500 mls/hr ONCE PRN IV 05/16/17 17:00 05/17/17 16:59 (Xylocaine 1% Inj (50 ml)) 10 ml UNSCH PRN INFIL 05/16/17 17:00 05/17/17 16:59 (Vasotec Inj) 1.25 mg Q6H PRN IV PUSH 05/16/17 18:00 05/16/17 21:16 (Apresoline Inj) 20 mg Q1H PRN IV PUSH 05/16/17 19:15 (Catapres) 0.1 mg Q4H PRN PO 05/16/17 19:15 Vital Signs / I&O Vital Signs Date Time Temp Pulse Resp B/P (MAP) Pulse Ox O2 Delivery O2 Flow Rate FiO2 05/17/17 05:12 97.9 88 20 142/79 (100) 98 05/17/17 03:54 84 05/17/17 03:39 85 05/17/17 00:00 98.9 90 20 129/62 (84) 98 05/16/17 23:44 92 05/16/17 20:21 97.4 84 20 176/77 (110) 97 05/16/17 20:00 106 05/16/17 16:51 90 Room Air 05/16/17 12:00 96.2 77 18 160/82 (108) 99 I/O 05/16/17 05/16/17 05/16/17 05/17/17 05/17/17 05/17/17 07:00 15:00 23:00 07:00 15:00 23:00 Intake Total 515 ml 100 ml 1277.5 ml Output Total 1100 ml 600 ml 1000 ml Balance -585 ml -500 ml 277.5 ml Intake Oral 760 ml IV Total 515 ml 100 ml 517.5 ml Output Urine Total 1100 ml 600 ml 1000 ml Physical Exam EYES: No scleral icterus. No injection or drainage. NECK: Supple, trachea midline. No JVD or lymphadenopathy. CARDIOVASCULAR: Regular rate and rhythm without murmurs, gallops, or rubs. RESPIRATORY: Breath sounds equal bilaterally. No accessory muscle use. GASTROINTESTINAL: Abdomen soft, non-tender, nondistended. MUSCULOSKELETAL: No cyanosis, or edema. BACK: Nontender without obvious deformity. No CVA tenderness. doppler AT/PT RLE Laboratory Laboratory Tests Test 05/17/17 04:23 White Blood Count 7.0 TH/MM3 Red Blood Count 3.08 MIL/MM3 Hemoglobin 9.7 GM/DL Hematocrit 28.1 % Mean Corpuscular Volume 91.2 FL Mean Corpuscular Hemoglobin 31.6 PG Mean Corpuscular Hemoglobin Concent 34.7 % Red Cell Distribution Width 13.8 % Platelet Count 338 TH/MM3 Mean Platelet Volume 7.2 FL Neutrophils (%) (Auto) 70.5 % Lymphocytes (%) (Auto) 16.1 % Monocytes (%) (Auto) 9.7 % Eosinophils (%) (Auto) 2.9 % Basophils (%) (Auto) 0.8 % Neutrophils # (Auto) 4.9 TH/MM3 Lymphocytes # (Auto) 1.1 TH/MM3 Monocytes # (Auto) 0.7 TH/MM3 Eosinophils # (Auto) 0.2 TH/MM3 Basophils # (Auto) 0.1 TH/MM3 CBC Comment DIFF FINAL Differential Comment Blood Urea Nitrogen 10 MG/DL Creatinine 0.82 MG/DL Random Glucose 157 MG/DL Calcium Level 8.2 MG/DL Magnesium Level 1.8 MG/DL Sodium Level 141 MEQ/L Potassium Level 3.6 MEQ/L Chloride Level 109 MEQ/L Carbon Dioxide Level 25.2 MEQ/L Anion Gap 7 MEQ/L Estimat Glomerular Filtration Rate 97 ML/MIN Imaging Last Impressions Foot X-Ray 05/10/17 0000 Signed Impressions: Service Date/Time: Wednesday, May 10, 2017 12:53 - CONCLUSION: 1. No significant erosive bony change to suggest osteomyelitis as questioned. Meng Gatica MD Foot MRI 05/10/17 Signed Impressions: Service Date/Time: Wednesday, May 10, 2017 13:58 - CONCLUSION: 1. Evidence of cellulitis in the plantar soft tissues about the 4th metatarsal bone. 2. 3. No MR evidence for osteomyelitis: 4. No signal abnormalities and no abnormal enhancement within the osseous structures of the forefoot or midfoot. Adan Camargo MD Chest X-Ray 05/10/17 0000 Signed Impressions: Service Date/Time: Wednesday, May 10, 2017 12:57 - CONCLUSION: 1. No acute cardiopulmonary disease. Meng Gatica MD Assessment and Plan Problem List: (1) PAD (peripheral artery disease) ICD Codes: I73.9 - Peripheral vascular disease, unspecified (2) Foot osteomyelitis ICD Codes: M86.9 - Osteomyelitis, unspecified Status: Acute (3) Cellulitis and abscess ICD Codes: L02.91 - Cutaneous abscess, unspecified; L03.90 - Cellulitis and abscess Status: Acute Assessment and Plan Peripheral angio successful retrograde revascularization of anterior tibial artery peroneal artery widely patent good two vessel runoff mgt per podiatry/ID/hospitalist will sign off call with further questions Fabio Barnes MD May 17, 2017 08:35
[2017-05-17] MEDS: SODIUM CHLORIDE 0.9% FLUSH 10 ML FLUSH IV FLUSH SCH ×2 (09:00→21:00)
[2017-05-17] MEDS: POTASSIUM CHLORIDE 20 MEQ CONTROLLED RELEASE TAB PO SCH ×2 (09:00→20:08)
[2017-05-17] MEDS: ATORVASTATIN 40 MG TAB PO SCH (09:00)
[2017-05-17] MEDS: FUROSEMIDE 40 MG TAB PO SCH ×2 (09:00→20:08)
[2017-05-17] MEDS: VANCOMYCIN INJ 1,750 MG in SODIUM CHLORID 0.9% 500 ML INJ 500 ML IV SCH ×2 (09:09→22:26)
[2017-05-17] MEDS: LISINOPRIL 20 MG TAB PO SCH (09:10)
[2017-05-17] MEDS: PANTOPRAZOLE SOD 20 MG DELAYED RELEASE TAB PO SCH (09:10)
[2017-05-17] MEDS: CLOPIDOGREL 75 MG TAB PO SCH (09:10)
[2017-05-17] MEDS: DOCUSATE SODIUM 50 MG/SENNA 8.6 MG TAB PO SCH ×2 (09:10→21:14)
[2017-05-17] MEDS: ASPIRIN EC 81 MG TABEC PO SCH (09:11)
[2017-05-17] MEDS: INSULIN ASPART SUPPLEMENTAL SCALE SQ SCH ×4 (09:14→21:00)
--- NOTE | 2017-05-17 10:36 | HHI.PR ---
Subjective Remarks No new complaints BP stable overall Objective Vitals Vital Signs Date Time Temp Pulse Resp B/P (MAP) Pulse Ox O2 Delivery O2 Flow Rate FiO2 05/17/17 08:00 97.5 83 18 154/78 (103) 98 05/17/17 05:12 97.9 88 20 142/79 (100) 98 05/17/17 03:54 84 05/17/17 03:39 85 05/17/17 00:00 98.9 90 20 129/62 (84) 98 05/16/17 23:44 92 05/16/17 20:21 97.4 84 20 176/77 (110) 97 05/16/17 20:00 106 05/16/17 16:51 90 Room Air 05/16/17 12:00 96.2 77 18 160/82 (108) 99 Result Diagram: 05/17/17 0423 05/17/17 0423 Other Results Laboratory Tests Test 05/16/17 07:05 05/17/17 04:23 Creatinine 0.87 MG/DL 0.82 MG/DL Estimat Glomerular Filtration Rate 91 ML/MIN 97 ML/MIN White Blood Count 7.0 TH/MM3 Red Blood Count 3.08 MIL/MM3 Hemoglobin 9.7 GM/DL Hematocrit 28.1 % Mean Corpuscular Volume 91.2 FL Mean Corpuscular Hemoglobin 31.6 PG Mean Corpuscular Hemoglobin Concent 34.7 % Red Cell Distribution Width 13.8 % Platelet Count 338 TH/MM3 Mean Platelet Volume 7.2 FL Neutrophils (%) (Auto) 70.5 % Lymphocytes (%) (Auto) 16.1 % Monocytes (%) (Auto) 9.7 % Eosinophils (%) (Auto) 2.9 % Basophils (%) (Auto) 0.8 % Neutrophils # (Auto) 4.9 TH/MM3 Lymphocytes # (Auto) 1.1 TH/MM3 Monocytes # (Auto) 0.7 TH/MM3 Eosinophils # (Auto) 0.2 TH/MM3 Basophils # (Auto) 0.1 TH/MM3 CBC Comment DIFF FINAL Differential Comment Blood Urea Nitrogen 10 MG/DL Random Glucose 157 MG/DL Calcium Level 8.2 MG/DL Magnesium Level 1.8 MG/DL Sodium Level 141 MEQ/L Potassium Level 3.6 MEQ/L Chloride Level 109 MEQ/L Carbon Dioxide Level 25.2 MEQ/L Anion Gap 7 MEQ/L Imaging Last Impressions Foot X-Ray 05/10/17 0000 Signed Impressions: Service Date/Time: Wednesday, May 10, 2017 12:53 - CONCLUSION: 1. No significant erosive bony change to suggest osteomyelitis as questioned. Meng Gatica MD Foot MRI 05/10/17 0000 Signed Impressions: Service Date/Time: Wednesday, May 10, 2017 13:58 - CONCLUSION: 1. Evidence of cellulitis in the plantar soft tissues about the 4th metatarsal bone. 2. 3. No MR evidence for osteomyelitis: 4. No signal abnormalities and no abnormal enhancement within the osseous structures of the forefoot or midfoot. Adan Camargo MD Chest X-Ray 05/10/17 0000 Signed Impressions: Service Date/Time: Wednesday, May 10, 2017 12:57 - CONCLUSION: 1. No acute cardiopulmonary disease. Meng Gatica MD Last Impressions Foot X-Ray 05/10/17 0000 Signed Impressions: Service Date/Time: Wednesday, May 10, 2017 12:53 - CONCLUSION: 1. No significant erosive bony change to suggest osteomyelitis as questioned. Meng Gatica MD Chest X-Ray 05/10/17 0000 Signed Impressions: Service Date/Time: Wednesday, May 10, 2017 12:57 - CONCLUSION: 1. No acute cardiopulmonary disease. Meng Gatica MD Objective Remarks General: NAD, AAOx3 Chest: CTA Cardiac: Regular Abd: +BS, soft ND/NT Ext: Bilateral feet are bandaged which are c/d/i, RLE edema improving, increased warmth to the RLE A/P Problem List: (1) Foot osteomyelitis ICD Codes: M86.9 - Osteomyelitis, unspecified Status: Acute Plan: Osteomyelitis Right foot Cellulitis BLE - This is a 57 year old male patient with DM, HTN and GERD. 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 Patient reports that he started working at [employer] 03/29/17 which is a job that required walking and lifting, he then started to have blisters. Toward the end of March patient noticed that his left foot opened up then about a week later patient's right foot opened. Then patient's feet began to drain. Patient also had rigors which started last Tuesday and then night sweats Tuesday night. Tuesday night the patient noticed that his sock was covered in blood and his 3rd and 4th toes started to have a change in color. Patient has taken clindamycin and dicloxacillin. Patient was started on Dicloxacillin by patient's PCP Dr. Coker after reviewing results of wound culture. - C reactive protein 21.10 - ESR 100 - MRI Left foot: Evidence of cellulitis in the plantar soft tissue about the 4th metatarsal bone. No MR evidence of osteomyelitis. No signal abnormalities and no abnormal enhancement within the osseous structure of the forefoot or midfoot. - MRI R foot: No evidence of cellulitis plantar soft tissue with some enhancing soft tissue extending to the interdigital space between the 2nd and 4th digits. There is definite signal abnormality in the marrow of the proximal phalanx of the 3rd and 4th digits and possible subtle abnormality in the proximal phalanx of the 2nd digit, suspicious for osteomyelitis. - Podiatry is following - Pt underwent left foot ulcer excisional sharp debridement, right 3rd digit amputation, 2nd and 4th proximal phalanx base bone biopsy, and I&D right foot - Pt was given Vanco and Zosyn in the ER - Wound cultures are growing MRSA, Enterococcus faecalis, and Group B beta strep from the surface cultures on 05/10 - Surgical cultures (05/11) are growing Enterococcus faecalis, Haemophilus, and Pseudomonas. - ID following - Pt continued on Vancomycin and Zosyn increased to 4.5gm Q6H on 05/14 - Pathology from right 4th phalanx indicating acute osteomyelitis - BC (05/10) with NGTD - Pt underwent successful retrograde revascularization of anterior tibial artery on 05/[address] Barnes - Await podiatry and ID recommendations for further management. Case discussed with Dr. Valencia on 05/17 and pt likely to go to OR tomorrow for possible transmetatarsal amputation but is to be reviewed by Dr. Valencia today for determination - Pt will likely need PICC line placement PAD - Pt previously had angioplasty to left SFA and left anterior tibial (09/2016 ) and angioplasty to right mid-SFA (11/2016) - Surgical report on 05/11 noted right foot with poor blood flow - Cardiology is following - Pt underwent LE angiogram (05/13) --> Successful orbital rotational atherectomy and balloon angioplasty with drug-coated balloon of the severe stenosis within the peroneal vessel, occluded anterior tibial and posterior tibial arteries, and mild descending aortic atherosclerosis. - Pt recommended to continue on aggressive medical therapy. - Pt underwent repeat attempt at a retrograde approach in the anterior tibial to try to obtain better revascularization on 05/16 which was successful with noted peroneal artery widely patent and good two vessel runoff - ASA and Plavix resumed - Renal function is stable GERD - Continue home Omeprazole HTN - Continue home Lisinopril 40 mg PO daily - Monitor BP DM type 2 - SSI coverage - Accu checks ACHS - Diabetic diet Lower extremity edema - Lasix 40 mg PO BID - Potassium 20 mg PO BID DVT prophylaxis with SCDs (2) GERD (gastroesophageal reflux disease) ICD Codes: K21.9 - Gastro-esophageal reflux disease without esophagitis (3) Hypertension ICD Codes: I10 - Hypertension Status: Chronic (4) Diabetes ICD Codes: E11.9 - Diabetes Status: Acute Assessment and Plan Patient examined. Assessment and plan formulated with Diann Anaya PA-C. I agree with the above. Diann Anaya May 17, 2017 10:36 Rhys Hassan DO May 18, 2017 12:43
--- NOTE | 2017-05-17 13:15 | MA ---
cc: Fabio Barnes MD 05/16/2017 PROCEDURE PERFORMED: 1. Fluoroscopy with interpretation. 2. Peripheral angiography. 3. Orbital tissue atherectomy of the anterior tibial artery. 4. Percutaneous transluminal angioplasty of the anterior tibial artery. METHOD: Risks, benefits and alternatives discussed with the patient. The patient understood, consented to the procedure. The patient brought into the catherization lab and placed on the catherization table. The left groin and right foot were prepped and draped in a sterile fashion. The left groin was anesthetized with 2% lidocaine. The left common femoral artery was cannulated and a 6-Cambodian sheath was placed without difficulty. PERIPHERAL ANGIOGRAPHY: A 6-Cambodian, 90 centimeter terminal sheath was advanced up and over the arch, over a Glidewire down to the level of the popliteal artery in the right lower extremity. Angiography revealed that the peroneal artery was widely patent, with mild lumen irregularities. A posterior tibial was flush occluded. Anterior tibial was occluded in the proximal segment, collateralized at the level of the ankle. PERCUTANEOUS INTERVENTION: We had perviously attempted an antegrade approach to the anterior tibial artery, but due to the steep angulation and subbranch bifurcation at the stump occlusion, we were unable to transition past the occlusion. Podiatry is requesting improved inflow for possible transmetatarsal amputation and wound healing. Under angiographic and ultrasound guidance, we accessed the dorsalis pedis with a micropuncture sheath. Selective angiography confirmed that we were in the true lumen. We then exchanged for a 5-Cambodian hydrophilic terumo sheath. A Viance catheter was then advanced retrograde through the sheath to the proximal segment of the anterior tibial artery, but we got into a dissection flap and were never able to reenter into the true lumen with a Viance. At that point, we spent over an hour and a half period of time with various wires to see if we can navigate the turn and push through the occlusion. We were finally able to reenter back into the peroneal bifurcation at the level of the popliteal artery distally. Selective angiography confirmed intraluminal placement. We navigated the wire retrograde back up through the superficial femoral artery. Orbital tissue atherectomy was performed with a 1.25 millimeter CSI atherectomy catheter retrograde through the entire anterior tibial vessel. A 3.0 balloon x 200 millimeter [employer] balloon was advanced to retrograde and 3 sequential prolonged inflations performed. Repeat angiography after administration of nitroglycerine showed KRISTINA III flow, only minor luminal irregularities, with an excellent angiographic result. The wire was removed and both sheath sacks were removed and sewn into place to be removed depending on hemostasis. CONCLUSIONS: Successful retrograde revascularization of chronically occluded anterior tibial artery from dorsalis pedis approach. PLAN: We will monitor the patient closely for any postprocedural complications. We will continue with aggressive medical therapy. Followup with Podiatry. MD BANDAR Stevenson/KATE , 05:21 PM , 12:55 AM
--- NOTE | 2017-05-17 19:36 | HHI.PR ---
Subjective Remarks Patient seen bedside this evening. Denies nausea, vomiting, fevers, or chills. Denies calf pain. Resting comfortably. Objective Vital Signs Date Time Temp Pulse Resp B/P (MAP) Pulse Ox O2 Delivery O2 Flow Rate FiO2 05/17/17 12:00 96.9 85 18 148/76 (100) 99 05/17/17 08:00 97.5 83 18 154/78 (103) 98 05/17/17 05:12 97.9 88 20 142/79 (100) 98 05/17/17 03:54 84 05/17/17 03:39 85 05/17/17 00:00 98.9 90 20 129/62 (84) 98 05/16/17 23:44 92 05/16/17 20:21 97.4 84 20 176/77 (110) 97 05/16/17 20:00 106 I/O 05/16/17 05/16/17 05/16/17 05/17/17 05/17/17 05/17/17 07:00 15:00 23:00 07:00 15:00 23:00 Intake Total 515 ml 100 ml 1277.5 ml 517.5 ml 680 ml Output Total 1100 ml 600 ml 1000 ml Balance -585 ml -500 ml 277.5 ml 517.5 ml 680 ml Intake Oral 760 ml 480 ml IV Total 515 ml 100 ml 517.5 ml 517.5 ml 200 ml Output Urine Total 1100 ml 600 ml 1000 ml # Voids 4 # Bowel Movements 1 Result Diagram: 05/17/17 0423 05/17/17 0423 Imaging Last Impressions Foot X-Ray 05/10/17 0000 Signed Impressions: Service Date/Time: Wednesday, May 10, 2017 12:53 - CONCLUSION: 1. No significant erosive bony change to suggest osteomyelitis as questioned. Meng Gatica MD Foot MRI 05/10/17 0000 Signed Impressions: Service Date/Time: Wednesday, May 10, 2017 13:58 - CONCLUSION: 1. Evidence of cellulitis in the plantar soft tissues about the 4th metatarsal bone. 2. 3. No MR evidence for osteomyelitis: 4. No signal abnormalities and no abnormal enhancement within the osseous structures of the forefoot or midfoot. Adan Camargo MD Chest X-Ray 05/10/17 0000 Signed Impressions: Service Date/Time: Wednesday, May 10, 2017 12:57 - CONCLUSION: 1. No acute cardiopulmonary disease. Meng Gatica MD Other Results Microbiology Date/Time Source Procedure Growth Status 05/10/17 12:28 Blood Peripheral Aerobic Blood Culture - Final NO GROWTH IN 5 DAYS Complete 05/10/17 12:28 Blood Peripheral Anaerobic Blood Culture - Final NO GROWTH IN 5 DAYS Complete 05/11/17 19:18 Wound Foot Fungal Smear - Final NO FUNGAL ELEMENTS SEEN. Resulted 05/11/17 19:18 Wound Foot Fungal Culture Pending Resulted Objective Remarks Lower extremity physical exam: Vascular: Dorsalis pedis palpable, posterior tibial diminished. Capillary refill time within normal limits to digits present to right foot. Edema present right foot and ankle Neuro: Gross sensation intact to bilateral lower extremity. Pinpoint sensation deep. No hyperalgesia noted to bilateral lower extremity Dermatology: Normal temperature and turgor to bilateral lower extremity. Plantar foot ulcer noted measuring approximately 4 cm x 3 cm with 1 cm of probing; tunneling deep to bone, malodor noted, hyperkeratotic wound edges, probe to bone, no purulent drainage upon compression, mild surrounding erythema. Musculoskeletal: Rocker-bottom deformity noted to right foot, left below the knee amputation noted. Medications and IVs Current Medications Medications (Trade) Dose Ordered Sig/Jack Route Start Time Stop Time Status Last Admin (Lasix) 40 mg BID PO 05/10/17 21:00 (KCl) 20 meq BID PO 05/10/17 21:00 05/11/17 21:27 (NS Flush) 2 ml UNSCH PRN IV FLUSH 05/10/17 16:15 05/14/17 03:24 (NS Flush) 2 ml BID IV FLUSH 05/10/17 21:00 05/16/17 21:16 (Tylenol) 650 mg Q4H PRN PO 05/10/17 16:15 (Zofran Inj) 4 mg Q6H PRN IVP 05/10/17 16:15 (Narcan Inj) 0.4 mg UNSCH PRN IV PUSH 05/10/17 16:15 (Amie-Colace) 1 tab BID PO 05/10/17 21:00 05/17/17 09:10 (Milk Of Magnesia Liq) 30 ml Q12H PRN PO 05/10/17 16:15 Pharmacy Profile Note 0 ml @ 0 mls/hr UNSCH OTHER 05/10/17 16:15 (D50w (Vial) Inj) 50 ml UNSCH PRN IV PUSH 05/10/17 16:30 (Glucagon Inj) 1 mg UNSCH PRN OTHER 05/10/17 16:30 (NovoLOG SUPPLEMENTAL SCALE) 1 ACHS SLIDING SCALE SQ 05/10/17 17:00 05/17/17 16:56 (Prinivil) 40 mg DAILY PO 05/11/17 09:00 05/17/17 09:10 (Protonix) 20 mg DAILY PO 05/11/17 09:00 05/17/17 09:10 Vancomycin HCl 1750 mg/Sodium Chloride 517.5 ml @ 250 mls/hr Q12H IV 05/10/17 22:00 05/17/17 09:09 (Restoril) 15 mg HS PRN PO 05/12/17 11:30 05/16/17 22:56 (Ecotrin Ec) 81 mg DAILY PO 05/12/17 12:15 05/17/17 09:11 (Plavix) 75 mg DAILY PO 05/12/17 12:15 05/17/17 09:10 (Lipitor) 40 mg DAILY PO 05/12/17 12:15 05/17/17 09:00 Piperacillin Sod/ Tazobactam Sod 100 ml @ 200 mls/hr Q6H IV 05/14/17 21:00 05/17/17 16:22 Sodium Chloride 1,000 ml @ 100 mls/hr Q10H IV 05/15/17 11:52 05/20/17 11:51 05/16/17 02:45 (Atropine Inj) 0.5 mg UNSCH PRN IV PUSH 05/16/17 17:00 (Vasotec Inj) 1.25 mg Q6H PRN IV PUSH 05/16/17 18:00 05/16/17 21:16 (Apresoline Inj) 20 mg Q1H PRN IV PUSH 05/16/17 19:15 (Catapres) 0.1 mg Q4H PRN PO 05/16/17 19:15 Assessment and Plan Assessment and Plan 57-year-old male with right plantar ulcer Patient examined and evaluated with all questions answered Discussed WBC scan with radiologist, no evidence of osteomyelitis soft tissue infection noted Patient to OR tomorrow for debridement and irrigation of plantar foot wound and probable wound VAC placement N.p.o. after midnight, okay for clear liquids in a.m. for breakfast Will remove wound VAC in 48 hours and evaluate for possible discharge Heel weightbearing to right lower extremity Joanna Valencia DPM May 17, 2017 19:36
--- NOTE | 2017-05-17 19:57 | HHI.PR ---
Subjective Remarks Patient seen bedside this evening. Denies nausea, vomiting, fevers, or chills. Denies calf pain. Resting comfortably. Objective Vital Signs Date Time Temp Pulse Resp B/P (MAP) Pulse Ox O2 Delivery O2 Flow Rate FiO2 05/17/17 12:00 96.9 85 18 148/76 (100) 99 05/17/17 08:00 97.5 83 18 154/78 (103) 98 05/17/17 05:12 97.9 88 20 142/79 (100) 98 05/17/17 03:54 84 05/17/17 03:39 85 05/17/17 00:00 98.9 90 20 129/62 (84) 98 05/16/17 23:44 92 05/16/17 20:21 97.4 84 20 176/77 (110) 97 05/16/17 20:00 106 I/O 05/16/17 05/16/17 05/16/17 05/17/17 05/17/17 05/17/17 07:00 15:00 23:00 07:00 15:00 23:00 Intake Total 515 ml 100 ml 1277.5 ml 517.5 ml 680 ml Output Total 1100 ml 600 ml 1000 ml Balance -585 ml -500 ml 277.5 ml 517.5 ml 680 ml Intake Oral 760 ml 480 ml IV Total 515 ml 100 ml 517.5 ml 517.5 ml 200 ml Output Urine Total 1100 ml 600 ml 1000 ml # Voids 4 # Bowel Movements 1 Result Diagram: 05/17/17 0423 05/17/17 0423 Imaging Last Impressions Foot X-Ray 05/10/17 0000 Signed Impressions: Service Date/Time: Wednesday, May 10, 2017 12:53 - CONCLUSION: 1. No significant erosive bony change to suggest osteomyelitis as questioned. Meng Gatica MD Foot MRI 05/10/17 0000 Signed Impressions: Service Date/Time: Wednesday, May 10, 2017 13:58 - CONCLUSION: 1. Evidence of cellulitis in the plantar soft tissues about the 4th metatarsal bone. 2. 3. No MR evidence for osteomyelitis: 4. No signal abnormalities and no abnormal enhancement within the osseous structures of the forefoot or midfoot. Adan Camargo MD Chest X-Ray 05/10/17 0000 Signed Impressions: Service Date/Time: Wednesday, May 10, 2017 12:57 - CONCLUSION: 1. No acute cardiopulmonary disease. Meng Gatica MD Other Results Microbiology Date/Time Source Procedure Growth Status 05/10/17 12:28 Blood Peripheral Aerobic Blood Culture - Final NO GROWTH IN 5 DAYS Complete 05/10/17 12:28 Blood Peripheral Anaerobic Blood Culture - Final NO GROWTH IN 5 DAYS Complete 05/11/17 19:18 Wound Foot Fungal Smear - Final NO FUNGAL ELEMENTS SEEN. Resulted 05/11/17 19:18 Wound Foot Fungal Culture Pending Resulted Objective Remarks Lower extremity physical exam: Vascular: Dorsalis pedis palpable, posterior tibial palpable. Capillary refill time within normal limits to digits present to bilateral foot. Edema present right foot and ankle Neuro: Gross sensation intact to bilateral lower extremity. Pinpoint sensation decreased. No hyperalgesia noted to bilateral lower extremity Dermatology: Right foot third digit amputation noted with incision and sutures intact, plantar ulceration noted with fibro-granular base and probe to bone, serous drainage noted hyperkeratotic wound edges noted. Left foot plantar ulcer noted with hyperkeratotic wound edges. No acute infection noted to the left foot. Musculoskeletal: Right third digit amputation noted. Medications and IVs Current Medications Medications (Trade) Dose Ordered Sig/Jack Route Start Time Stop Time Status Last Admin (Lasix) 40 mg BID PO 05/10/17 21:00 (KCl) 20 meq BID PO 05/10/17 21:00 05/11/17 21:27 (NS Flush) 2 ml UNSCH PRN IV FLUSH 05/10/17 16:15 05/14/17 03:24 (NS Flush) 2 ml BID IV FLUSH 05/10/17 21:00 05/16/17 21:16 (Tylenol) 650 mg Q4H PRN PO 05/10/17 16:15 (Zofran Inj) 4 mg Q6H PRN IVP 05/10/17 16:15 (Narcan Inj) 0.4 mg UNSCH PRN IV PUSH 05/10/17 16:15 (Amie-Colace) 1 tab BID PO 05/10/17 21:00 05/17/17 09:10 (Milk Of Magnesia Liq) 30 ml Q12H PRN PO 05/10/17 16:15 Pharmacy Profile Note 0 ml @ 0 mls/hr UNSCH OTHER 05/10/17 16:15 (D50w (Vial) Inj) 50 ml UNSCH PRN IV PUSH 05/10/17 16:30 (Glucagon Inj) 1 mg UNSCH PRN OTHER 05/10/17 16:30 (NovoLOG SUPPLEMENTAL SCALE) 1 ACHS SLIDING SCALE SQ 05/10/17 17:00 05/17/17 16:56 (Prinivil) 40 mg DAILY PO 05/11/17 09:00 05/17/17 09:10 (Protonix) 20 mg DAILY PO 05/11/17 09:00 05/17/17 09:10 Vancomycin HCl 1750 mg/Sodium Chloride 517.5 ml @ 250 mls/hr Q12H IV 05/10/17 22:00 05/17/17 09:09 (Restoril) 15 mg HS PRN PO 05/12/17 11:30 05/16/17 22:56 (Ecotrin Ec) 81 mg DAILY PO 05/12/17 12:15 05/17/17 09:11 (Plavix) 75 mg DAILY PO 05/12/17 12:15 05/17/17 09:10 (Lipitor) 40 mg DAILY PO 05/12/17 12:15 05/17/17 09:00 Piperacillin Sod/ Tazobactam Sod 100 ml @ 200 mls/hr Q6H IV 05/14/17 21:00 05/17/17 16:22 Sodium Chloride 1,000 ml @ 100 mls/hr Q10H IV 05/15/17 11:52 05/20/17 11:51 05/16/17 02:45 (Atropine Inj) 0.5 mg UNSCH PRN IV PUSH 05/16/17 17:00 (Vasotec Inj) 1.25 mg Q6H PRN IV PUSH 05/16/17 18:00 05/16/17 21:16 (Apresoline Inj) 20 mg Q1H PRN IV PUSH 05/16/17 19:15 (Catapres) 0.1 mg Q4H PRN PO 05/16/17 19:15 Assessment and Plan Assessment and Plan 57-year-old male with right foot infection, osteomyelitis noted on MRI and left foot ulcer Patient evaluated and examined with all questions answered Patient underwent vascular intervention, appreciate vascular's intervention Patient to OR tomorrow for right transmetatarsal amputation with gastroc recession and a left plantar wound debridement and irrigation with skin graft placement and any other indicated procedures to bilateral lower extremity N.p.o. after midnight; clear liquids for breakfast okay Anticipate DC 2-3 days postop We will obtain OR cultures and clear margins ID recommendations on outpatient antibiotics appreciated once the OR cultures and pathology is resulted Joanna Valencia DPM May 17, 2017 19:57
[2017-05-17] MEDS: TEMAZEPAM 15 MG CAP PO PRN (22:54)
[2017-05-18] VITALS (7 sets, daily range): BP systolic 128–162; BP diastolic 60–90; PULSE 63–84; RESP 15–20; TEMP 95.2–97.9; O2SAT 94–98
[2017-05-18] MEDS ORDERED: POVIDONE IODINE 5% (ANTISEPSIS KIT) 4 APPLICATIONS EACH NARE PRN (01:30)
[2017-05-18] MEDS ORDERED: LACTATED RINGER'S 1000 ML IV PRN (01:30)
[2017-05-18] MEDS ORDERED: CHLORHEXIDINE GLUCONATE 2 % 1 PACK (2 CLOTHS) TOPICAL PRN (01:30)
[2017-05-18] MEDS ORDERED: SODIUM CHLORID 0.9% 500 ML IV PRN (01:30)
[2017-05-18] MEDS: PIPERACIL-TAZO 4.5 GM PREMIX 100 ML IV SCH ×4 (02:34→21:56)
[2017-05-18] MEDS: INSULIN ASPART SUPPLEMENTAL SCALE SQ SCH ×3 (08:00→22:11)
[2017-05-18] MEDS: POTASSIUM CHLORIDE 20 MEQ CONTROLLED RELEASE TAB PO SCH ×2 (09:00→21:00)
[2017-05-18] MEDS: FUROSEMIDE 40 MG TAB PO SCH ×2 (09:00→21:00)
[2017-05-18] MEDS: SODIUM CHLORIDE 0.9% FLUSH 10 ML FLUSH IV FLUSH SCH ×2 (09:00→21:58)
[2017-05-18] MEDS: DOCUSATE SODIUM 50 MG/SENNA 8.6 MG TAB PO SCH ×2 (09:26→21:58)
[2017-05-18] MEDS: ATORVASTATIN 40 MG TAB PO SCH (09:26)
[2017-05-18] MEDS: ASPIRIN EC 81 MG TABEC PO SCH (09:26)
[2017-05-18] MEDS: CLOPIDOGREL 75 MG TAB PO SCH (09:27)
[2017-05-18] MEDS: PANTOPRAZOLE SOD 20 MG DELAYED RELEASE TAB PO SCH (09:27)
[2017-05-18] MEDS: LISINOPRIL 20 MG TAB PO SCH (09:27)
[2017-05-18 09:28] LABS: CREATININE 0.82 MG/DL (0.60-1.30)
[2017-05-18] MEDS: VANCOMYCIN INJ 1,750 MG in SODIUM CHLORID 0.9% 500 ML INJ 500 ML IV SCH ×2 (11:44→21:57)
[2017-05-18] MEDS: SODIUM CHLOR 0.9% 1000 ML INJ 1,000 ML IV SCH ×2 (11:52→19:52)
--- NOTE | 2017-05-18 12:47 | HHI.PR ---
Subjective Remarks No new complaints. Objective Vitals Vital Signs Date Time Temp Pulse Resp B/P (MAP) Pulse Ox O2 Delivery O2 Flow Rate FiO2 05/18/17 12:00 95.2 80 15 158/84 (108) 98 05/18/17 08:00 96.4 63 16 151/84 (106) 96 05/18/17 04:42 97.9 84 18 128/60 (82) 96 05/18/17 00:00 96.5 80 20 141/65 (90) 96 05/17/17 20:24 96.2 96 20 130/65 (86) 98 Result Diagram: 05/17/17 0423 05/18/17 0824 Imaging Last Impressions Foot X-Ray 05/10/17 0000 Signed Impressions: Service Date/Time: Wednesday, May 10, 2017 12:53 - CONCLUSION: 1. No significant erosive bony change to suggest osteomyelitis as questioned. Meng Gatica MD Foot MRI 05/10/17 0000 Signed Impressions: Service Date/Time: Wednesday, May 10, 2017 13:58 - CONCLUSION: 1. Evidence of cellulitis in the plantar soft tissues about the 4th metatarsal bone. 2. 3. No MR evidence for osteomyelitis: 4. No signal abnormalities and no abnormal enhancement within the osseous structures of the forefoot or midfoot. Adan Camargo MD Chest X-Ray 05/10/17 0000 Signed Impressions: Service Date/Time: Wednesday, May 10, 2017 12:57 - CONCLUSION: 1. No acute cardiopulmonary disease. Meng Gatica MD Last Impressions Foot X-Ray 05/10/17 0000 Signed Impressions: Service Date/Time: Wednesday, May 10, 2017 12:53 - CONCLUSION: 1. No significant erosive bony change to suggest osteomyelitis as questioned. Meng Gatica MD Chest X-Ray 05/10/17 0000 Signed Impressions: Service Date/Time: Wednesday, May 10, 2017 12:57 - CONCLUSION: 1. No acute cardiopulmonary disease. Meng Gatica MD Objective Remarks General: NAD, AAOx3 Chest: CTA Cardiac: Regular Abd: +BS, soft ND/NT Ext: Bilateral feet are bandaged which are c/d/i, RLE edema improving, increased warmth to the RLE A/P Problem List: (1) Foot osteomyelitis ICD Codes: M86.9 - Osteomyelitis, unspecified Status: Acute Plan: Osteomyelitis Right foot Cellulitis BLE - This is a 57 year old male patient with DM, HTN and GERD. - Patient presents to the ER today after being sent by his [employer] Dr. Frausto for concerns of OM of right foot. Patient reports that he started working at [employer] 03/29/17 which is a job that required walking and lifting, he then started to have blisters. Toward the end of March patient noticed that his left foot opened up then about a week later patient's right foot opened. Then patient's feet began to drain. Patient also had rigors which started last Tuesday and then night sweats Tuesday. Tuesday night the patient noticed that his sock was covered in blood and his 3rd and 4th toes started to have a change in color. Patient has taken clindamycin and dicloxacillin. Patient was started on Dicloxacillin by patient's PCP Dr. Coker after reviewing results of wound culture. - C reactive protein 21.10 - ESR 100 - MRI Left foot: Evidence of cellulitis in the plantar soft tissue about the 4th metatarsal bone. No MR evidence of osteomyelitis. No signal abnormalities and no abnormal enhancement within the osseous structure of the forefoot or midfoot. - MRI R foot: No evidence of cellulitis plantar soft tissue with some enhancing soft tissue extending to the interdigital space between the 2nd and 4th digits. There is definite signal abnormality in the marrow of the proximal phalanx of the 3rd and 4th digits and possible subtle abnormality in the proximal phalanx of the 2nd digit, suspicious for osteomyelitis. - Podiatry is following - Pt underwent left foot ulcer excisional sharp debridement, right 3rd digit amputation, 2nd and 4th proximal phalanx base bone biopsy, and I&D right foot - Pt was given Vanco and Zosyn in the ER - Wound cultures are growing MRSA, Enterococcus faecalis, and Group B beta strep from the surface cultures on 05/10 - Surgical cultures (05/11) are growing Enterococcus faecalis, Haemophilus, and Pseudomonas. - ID following - Pt continued on Vancomycin and Zosyn increased to 4.5gm Q6H on 05/14 - Pathology from right 4th phalanx indicating acute osteomyelitis - BC (05/10) with NGTD - Pt underwent successful retrograde revascularization of anterior tibial artery on 05/[address] Barnes - Pt to undergo right transmetatarsal amputation with Dr. Valencia today. - Pt will likely need PICC line placement - DVT prophylaxis - supportive care PAD - Pt previously had angioplasty to left SFA and left anterior tibial (09/2016 ) and angioplasty to right mid-SFA (11/2016) - Surgical report on 05/11 noted right foot with poor blood flow - Cardiology is following - Pt underwent LE angiogram (05/13) --> Successful orbital rotational atherectomy and balloon angioplasty with drug-coated balloon of the severe stenosis within the peroneal vessel, occluded anterior tibial and posterior tibial arteries, and mild descending aortic atherosclerosis. - Pt recommended to continue on aggressive medical therapy. - Pt underwent repeat attempt at a retrograde approach in the anterior tibial to try to obtain better revascularization on 05/16 which was successful with noted peroneal artery widely patent and good two vessel runoff - ASA and Plavix resumed - Renal function is stable GERD - Continue home Omeprazole HTN - Continue home Lisinopril 40 mg PO daily - Monitor BP DM type 2 - SSI coverage - Accu checks ACHS - Diabetic diet Lower extremity edema - Lasix 40 mg PO BID - Potassium 20 mg PO BID DVT prophylaxis with SCDs (2) GERD (gastroesophageal reflux disease) ICD Codes: K21.9 - Gastro-esophageal reflux disease without esophagitis (3) Hypertension ICD Codes: I10 - Hypertension Status: Chronic (4) Diabetes ICD Codes: E11.9 - Diabetes Status: Acute Assessment and Plan Patient examined. Assessment and plan formulated with Diann Anaya PA-C. I agree with the above. Rhys Hassan DO May 18, 2017 12:47
[2017-05-18] MEDS ORDERED: BUPIVACAINE HCL PF 0.5% 30 ML VIAL ONE (14:56)
[2017-05-18] MEDS ORDERED: GENTAMICIN SULFATE 80 MG/2 ML VIAL ONE (14:56)
[2017-05-18] MEDS ORDERED: ACETAMINOPHEN 1000 MG/100 ML 100 ML IV ONE (16:06)
[2017-05-18] MEDS ORDERED: DO NOT ADM ANY ANTICOAGULANT DRUGS PRN (18:30)
[2017-05-18 18:36] LABS: HEMATOCRIT 24.4 % (39.0-51.0); HEMOGLOBIN 8.5 GM/DL (13.0-17.0)
--- NOTE | 2017-05-18 18:36 | HHI.PR ---
Immediate Post Op Note Procedure Date: May 18, 2017 Pre Op Diagnosis: Right foot osteomyelitis; left foot ulcer Post Op Diagnosis: Same as preop diagnosis Surgeon: Joanna Valencia Nuclear Operator(s): None Procedure: Right transmetatarsal amputation with gastroc recession Left plantar ulcer debridement and irrigation with graft placement Findings: None Complications: None Specimen(s) removed: Right forefoot sent to pathology Right second and third metatarsal clearing margins sent to pathology Right bone proximal clean margin for culture Soft tissue right foot for micro Estimated blood loss: 100 cc Anesthesia: General Drains: BERTRAND IVF Patient to: PACU Patient Condition: Good Joanna Valencia DPM May 18, 2017 18:36
[2017-05-18] MEDS ORDERED: MIDAZOLAM HCL 2 MG/2 ML VIAL ONE (18:41)
[2017-05-18] MEDS ORDERED: Post-op Orders (for Pharmacy) XX ONE (19:00)
--- NOTE | 2017-05-18 19:09 | HHI.PR ---
Subjective Remarks Patient seen bedside prior to surgical intervention. Denies nausea, vomiting, fevers, or chills. In agreement with surgical intervention. Objective Vital Signs Date Time Temp Pulse Resp B/P (MAP) Pulse Ox O2 Delivery O2 Flow Rate FiO2 05/18/17 14:45 96.2 83 15 162/90 (114) 98 05/18/17 12:00 95.2 80 15 158/84 (108) 98 05/18/17 08:00 96.4 63 16 151/84 (106) 96 05/18/17 04:42 97.9 84 18 128/60 (82) 96 05/18/17 00:00 96.5 80 20 141/65 (90) 96 05/17/17 20:24 96.2 96 20 130/65 (86) 98 I/O 05/17/17 05/17/17 05/17/17 05/18/17 05/18/17 05/18/17 07:00 15:00 23:00 07:00 15:00 23:00 Intake Total 1277.5 ml 517.5 ml 780 ml 780 ml 1600 ml Output Total 1000 ml 1800 ml 1315 ml Balance 277.5 ml 517.5 ml 780 ml -1020 ml 285 ml Intake Oral 760 ml 480 ml 780 ml 0 ml IV Total 517.5 ml 517.5 ml 300 ml 1600 ml Output Urine Total 1000 ml 1800 ml 1215 ml Estimated Blood Loss 100 ml # Voids 4 # Bowel Movements 1 0 Result Diagram: 05/18/17 1749 05/18/17 0824 Imaging Last Impressions Foot X-Ray 05/10/17 0000 Signed Impressions: Service Date/Time: Wednesday, May 10, 2017 12:53 - CONCLUSION: 1. No significant erosive bony change to suggest osteomyelitis as questioned. Meng Gatica MD Foot MRI 05/10/17 0000 Signed Impressions: Service Date/Time: Wednesday, May 10, 2017 13:58 - CONCLUSION: 1. Evidence of cellulitis in the plantar soft tissues about the 4th metatarsal bone. 2. 3. No MR evidence for osteomyelitis: 4. No signal abnormalities and no abnormal enhancement within the osseous structures of the forefoot or midfoot. Adan Camargo MD Chest X-Ray 05/10/17 0000 Signed Impressions: Service Date/Time: Wednesday, May 10, 2017 12:57 - CONCLUSION: 1. No acute cardiopulmonary disease. Meng Gatica MD Objective Remarks Lower extremity physical exam: No change to physical exam since 05/18/17 Vascular: Dorsalis pedis palpable, posterior tibial palpable. Capillary refill time within normal limits to digits present to bilateral foot. Edema present right foot and ankle Neuro: Gross sensation intact to bilateral lower extremity. Pinpoint sensation decreased. No hyperalgesia noted to bilateral lower extremity Dermatology: Right foot third digit amputation noted with incision and sutures intact, plantar ulceration noted with fibro-granular base and probe to bone, serous drainage noted hyperkeratotic wound edges noted. Left foot plantar ulcer noted with hyperkeratotic wound edges. No acute infection noted to the left foot. Musculoskeletal: Right third digit amputation noted. Medications and IVs Current Medications Medications (Trade) Dose Ordered Sig/Jack Route Start Time Stop Time Status Last Admin (Lasix) 40 mg BID PO 05/10/17 21:00 (KCl) 20 meq BID PO 05/10/17 21:00 05/11/17 21:27 (NS Flush) 2 ml UNSCH PRN IV FLUSH 05/10/17 16:15 05/14/17 03:24 (NS Flush) 2 ml BID IV FLUSH 05/10/17 21:00 05/18/17 09:00 (Tylenol) 650 mg Q4H PRN PO 05/10/17 16:15 (Zofran Inj) 4 mg Q6H PRN IVP 05/10/17 16:15 (Narcan Inj) 0.4 mg UNSCH PRN IV PUSH 05/10/17 16:15 (Amie-Colace) 1 tab BID PO 05/10/17 21:00 05/18/17 09:26 (Milk Of Magnesia Liq) 30 ml Q12H PRN PO 05/10/17 16:15 Pharmacy Profile Note 0 ml @ 0 mls/hr UNSCH OTHER 05/10/17 16:15 (D50w (Vial) Inj) 50 ml UNSCH PRN IV PUSH 05/10/17 16:30 (Glucagon Inj) 1 mg UNSCH PRN OTHER 05/10/17 16:30 (NovoLOG SUPPLEMENTAL SCALE) 1 ACHS SLIDING SCALE SQ 05/10/17 17:00 05/18/17 11:52 (Prinivil) 40 mg DAILY PO 05/11/17 09:00 05/18/17 09:27 (Protonix) 20 mg DAILY PO 05/11/17 09:00 05/18/17 09:27 Vancomycin HCl 1750 mg/Sodium Chloride 517.5 ml @ 250 mls/hr Q12H IV 05/10/17 22:00 05/18/17 11:44 (Restoril) 15 mg HS PRN PO 05/12/17 11:30 05/17/17 22:54 (Ecotrin Ec) 81 mg DAILY PO 05/12/17 12:15 05/18/17 09:26 (Plavix) 75 mg DAILY PO 05/12/17 12:15 05/18/17 09:27 (Lipitor) 40 mg DAILY PO 05/12/17 12:15 05/18/17 09:26 Piperacillin Sod/ Tazobactam Sod 100 ml @ 200 mls/hr Q6H IV 05/14/17 21:00 05/18/17 09:25 Sodium Chloride 1,000 ml @ 100 mls/hr Q10H IV 05/15/17 11:52 05/20/17 11:51 05/18/17 11:52 (Atropine Inj) 0.5 mg UNSCH PRN IV PUSH 05/16/17 17:00 (Vasotec Inj) 1.25 mg Q6H PRN IV PUSH 05/16/17 18:00 05/16/17 21:16 (Apresoline Inj) 20 mg Q1H PRN IV PUSH 05/16/17 19:15 (Catapres) 0.1 mg Q4H PRN PO 05/16/17 19:15 Lactated Ringer's 1,000 ml @ 30 mls/hr Q24H PRN IV 05/18/17 01:30 05/21/17 01:29 Sodium Chloride 500 ml @ 30 mls/hr [id number] PRN IV 05/18/17 01:30 05/21/17 01:29 (Betadine 5% Antisepsis Kit) 1 applic MANAGER DIVERSITY PRN EACH NARE 05/18/17 01:30 05/21/17 01:29 (Chlorhexidine 2% Cloth) 3 pack MANAGER DIVERSITY PRN TOPICAL 05/18/17 01:30 3/3/18 01:29 Assessment and Plan Assessment and Plan 57-year-old male with right foot infection, osteomyelitis noted on MRI, bone biopsy (+) for OM and left foot ulcer Patient evaluated and examined with all questions answered Patient underwent vascular intervention, appreciate vascular's intervention Patient to OR today for right transmetatarsal amputation with gastroc recession and a left plantar wound debridement and irrigation with skin graft placement and any other indicated procedures to bilateral lower extremity Patient has remained NPO Consent signed and discussed with patient Anticipate DC 2-3 days postop We will obtain OR cultures and clear margins ID recommendations on outpatient antibiotics appreciated once the OR cultures and pathology is resulted Joanna Valencia DPM May 18, 2017 19:09
--- NOTE | 2017-05-18 20:06 | MP ---
cc: Joanna Valencia DPM, Jessica I DPM DATE OF OPERATION: 05/18/2017 SURGEON: Nayeli Valencia DPM INTELLIGENCE ENGINEER: None. PREOPERATIVE DIAGNOSIS: Right foot osteomyelitis, left foot plantar chronic ulcer. POSTOPERATIVE DIAGNOSIS: Right foot osteomyelitis, left foot plantar chronic ulcer. PROCEDURE: 1. Right foot transmetatarsal amputation with gastroc recession. 2. Left foot debridement and irrigation with graft placement. ANESTHESIA: General with a local infiltrate of 0.5% Marcaine plain infiltrated about the right ankle, 16 mL total, and 10 mL infiltrated about the left plantar foot. HEMOSTASIS: None. ESTIMATED BLOOD LOSS: 100 mL. MATERIALS: 2-0 and 3-0 Prolene, 3-0 Vicryl. DRAINS: Nahun-Lugo. GRAFTS: Neox cord 2 x 2 implanted to left foot as graft. INJECTABLES: None. COMPLICATIONS: None. INDICATIONS FOR PROCEDURE: The patient is a 57-year-old male who recently underwent right third digit amputation and bone biopsy to second and fourth proximal phalanx as well as incision and drainage of deep abscess right foot. Ulceration is present to left foot, however, it is not infected. The patient underwent revascularization with Dr. Barnes. Secondary to degree of osteomyelitis noted in forefoot, decision was taken with patient to perform a transmetatarsal amputation and left foot irrigation and debridement with graft placement. The patient understands all risks, alternatives, benefits and complications associated with procedure. PROCEDURE IN DETAIL: Under mild sedation, the patient was brought back to the operating room, placed on the operating room table in the supine position. Following the induction of general anesthesia, local infiltrate of 0.5% Marcaine plain was infiltrated about the right ankle, 16 mL total, and left foot, 10 mL total. The bilateral lower extremities were then scrubbed, prepped and draped in the usual aseptic fashion. The left foot was examined first. There was noted to be a granular base with mild hypertotic rim of tissue surrounding the ulceration. Curettage and sharp excisional debridement was performed using a 15 blade. There was noted to be good punctuate bleeding. There was no probe, tunneling or tracking. There was no malodor, no drainage. Following sharp debridement, a 2 x 2 Neox cord graft was applied to left foot. Prior to graft application, there was copious irrigation performed. The foot was then dressed with Adaptic, 4 x 4s, Morteza and Dillon. Attention was then directed to the right foot where there was noted to be previous third digit amputation. Plantar ulceration noted with probe to bone. At this time, a fish mouth incision was made over the metatarsal. This incision was deepened through skin and subcutaneous tissue to bone with care to retract all vital neurovascular structures. Metatarsal phalangeal joint was identified and the forefoot was disarticulated from metatarsals. This was passed from the field and sent for pathology. Kellogg elevator was then utilized to strip bone of periosteum and a sagittal saw was utilized to transect metatarsals 1-5. Proximal clearing margin of these metatarsals was sent for pathology to rule out osteomyelitis. Copious irrigation was performed to amputation site. Following lavage, right soft tissue was sent for microbiology and margin of third metatarsal was sent to pathology as a clear margin. The incision was then closed utilizing 2-0, 3-0 Prolene and placing a BERTRAND drain to amputation site. The foot was then dressed with Adaptic, 4 x 4s, Morteza, cast padding and Dillon. Prior to transmetatarsal amputation, attention was directed to left posteromedial calf where a 2 cm incision was made and this was deepened through subcutaneous tissue and fascia with care to retract all vital neurovascular structures. The sural nerve was identified and retracted and gastroc tendon was identified and transected. There was noted to be increased range of motion to right ankle and the site was closed with 3-0 Vicryl and 3-0 Prolene. The patient tolerated the procedure and anesthesia well. He was transferred from the operating room to PACU with vital signs stable, neurovascular status intact. We will pull the drain in 24-48 hours and monitor this patient's status. BETH Looney , 06:56 PM , 07:30 PM
--- NOTE | 2017-05-18 22:34 | RADRPT ---
EXAM DATE/TIME: 05/18/2017 19:08 [facility] COMPARISON: FOOT RIGHT COMPLETE ([id number]), May 10, 2017, 12:53. INDICATIONS : Status post rt transmetatarsal amputation. MEDICAL HISTORY : None. SURGICAL HISTORY : None. ENCOUNTER: Subsequent ACUITY: 1 day PAIN SCORE: 0/10 LOCATION: Right Foot FINDINGS: Transmetatarsal amputation has been performed on the right. No fracture or dislocation is noted. Surg ical drain is noted. CONCLUSION: Status post transmetatarsal amputation on the right. Jeff Rao MD on May 18, 2017 at 22:32 Board Certified Radiologist. This report was verified electronically.
[2017-05-19] VITALS (7 sets, daily range): BP systolic 123–158; BP diastolic 63–77; PULSE 74–82; RESP 17–20; TEMP 95.3–97.2; O2SAT 95–99
[2017-05-19] MEDS: TEMAZEPAM 15 MG CAP PO PRN ×2 (00:10→22:23)
[2017-05-19 00:45] LABS: AUTOMATED NEUTROPHIL # 8.4 TH/MM3 (1.8-7.7); BASOPHIL # 0.1 TH/MM3 (0-0.2); BASOPHIL % 0.6 % (0.0-2.0); EOSINOPHIL % 0.2 % (0.0-4.0); HEMATOCRIT 24.9 % (39.0-51.0); HEMOGLOBIN 8.5 GM/DL (13.0-17.0); LYMPH % 10.3 % (9.0-44.0); MEAN CELL VOLUME 90.7 FL (80.0-100.0); MEAN CORPUSCULAR HEMOGLOBIN 30.9 PG (27.0-34.0); MEAN CORPUSCULAR HGB CONC 34.1 % (32.0-36.0); MONO % 5.3 % (0.0-8.0); MONOCYTE # 0.5 TH/MM3 (0-0.9); NEUT % 83.6 % (16.0-70.0); PLATELET COUNT 349 TH/MM3 (150-450); RED BLOOD COUNT 2.74 MIL/MM3 (4.50-5.90); WHITE BLOOD COUNT 10.1 TH/MM3 (4.0-11.0)
[2017-05-19] MEDS: PIPERACIL-TAZO 4.5 GM PREMIX 100 ML IV SCH ×4 (03:38→22:15)
[2017-05-19] MEDS: SODIUM CHLOR 0.9% 1000 ML INJ 1,000 ML IV SCH ×2 (05:52→15:49)
[2017-05-19 07:11] LABS: BLOOD UREA NITROGEN 11 MG/DL (7-18); CALCIUM 7.9 MG/DL (8.5-10.1); CHLORIDE 109 MEQ/L (98-107); CREATININE 0.94 MG/DL (0.60-1.30); GLOMERULAR FILTRATION RATE 83 ML/MIN (>89); GLUCOSE,RANDOM 199 MG/DL (74-106); SODIUM (NA) 141 MEQ/L (136-145)
[2017-05-19 07:17] LABS: AUTOMATED NEUTROPHIL # 7.6 TH/MM3 (1.8-7.7); BASOPHIL # 0.1 TH/MM3 (0-0.2); BASOPHIL % 0.6 % (0.0-2.0); EOSINOPHIL % 0.4 % (0.0-4.0); HEMATOCRIT 25.7 % (39.0-51.0); LYMPH % 12.9 % (9.0-44.0); LYMPHOCYTE # 1.2 TH/MM3 (1.0-4.8); MEAN CELL VOLUME 90.8 FL (80.0-100.0); MEAN CORPUSCULAR HEMOGLOBIN 31.8 PG (27.0-34.0); MEAN PLATELET VOLUME 6.9 FL (7.0-11.0); MONO % 6.8 % (0.0-8.0); MONOCYTE # 0.7 TH/MM3 (0-0.9); NEUT % 79.3 % (16.0-70.0); PLATELET COUNT 351 TH/MM3 (150-450); RED BLOOD COUNT 2.83 MIL/MM3 (4.50-5.90); RED CELL DISTRIBUTION WIDTH 13.8 % (11.6-17.2); WHITE BLOOD COUNT 9.5 TH/MM3 (4.0-11.0)
[2017-05-19] MEDS: INSULIN ASPART SUPPLEMENTAL SCALE SQ SCH ×4 (08:38→22:24)
[2017-05-19] MEDS: SODIUM CHLORIDE 0.9% FLUSH 10 ML FLUSH IV FLUSH SCH ×2 (08:41→22:21)
[2017-05-19] MEDS: DOCUSATE SODIUM 50 MG/SENNA 8.6 MG TAB PO SCH ×2 (08:46→22:18)
[2017-05-19] MEDS: PANTOPRAZOLE SOD 20 MG DELAYED RELEASE TAB PO SCH (08:46)
[2017-05-19] MEDS: ATORVASTATIN 40 MG TAB PO SCH (08:47)
[2017-05-19] MEDS: LISINOPRIL 20 MG TAB PO SCH (08:47)
[2017-05-19] MEDS: ASPIRIN EC 81 MG TABEC PO SCH (08:47)
[2017-05-19] MEDS: CLOPIDOGREL 75 MG TAB PO SCH (08:47)
[2017-05-19] MEDS: POTASSIUM CHLORIDE 20 MEQ CONTROLLED RELEASE TAB PO SCH ×2 (08:48→21:00)
[2017-05-19] MEDS: FUROSEMIDE 40 MG TAB PO SCH ×2 (08:48→21:00)
[2017-05-19] MEDS: VANCOMYCIN INJ 1,750 MG in SODIUM CHLORID 0.9% 500 ML INJ 500 ML IV SCH ×2 (10:59→22:18)
--- NOTE | 2017-05-19 13:12 | HHI.PR ---
Subjective Remarks Pt's pain is controlled. Objective Vitals Vital Signs Date Time Temp Pulse Resp B/P (MAP) Pulse Ox O2 Delivery O2 Flow Rate FiO2 05/19/17 12:00 95.3 81 18 146/69 (94) 99 05/19/17 11:42 96 21 05/19/17 08:00 95.9 78 18 133/68 (89) 98 05/19/17 04:00 97.2 74 17 123/65 (84) 95 05/19/17 00:00 96.8 78 17 123/68 (86) 95 05/18/17 21:31 94 Nasal Cannula 2.00 05/18/17 20:00 97.9 71 17 134/66 (88) 94 05/18/17 19:30 73 14 132/77 (95) 97 Nasal Cannula 2 05/18/17 19:15 70 14 134/77 (96) 95 Nasal Cannula 2 05/18/17 19:00 72 14 135/75 (95) 97 Nasal Cannula 2 05/18/17 18:45 72 14 132/72 (92) 94 Nasal Cannula 2 05/18/17 18:33 98.0 82 14 126/65 (85) 94 Nasal Cannula 2 05/18/17 14:45 96.2 83 15 162/90 (114) 98 Result Diagram: 05/19/1729 05/19/17 0629 Imaging Last Impressions Foot X-Ray 05/18/17 0000 Signed Impressions: Service Date/Time: Thursday, May 18, 2017 19:08 - CONCLUSION: Status post transmetatarsal amputation on the right. Jeff Rao MD Foot MRI 05/10/17 0000 Signed Impressions: Service Date/Time: Wednesday, May 10, 2017 13:58 - CONCLUSION: 1. Evidence of cellulitis in the plantar soft tissues about the 4th metatarsal bone. 2. 3. No MR evidence for osteomyelitis: 4. No signal abnormalities and no abnormal enhancement within the osseous structures of the forefoot or midfoot. Adan Camargo MD Chest X-Ray 05/10/17 0000 Signed Impressions: Service Date/Time: Wednesday, May 10, 2017 12:57 - CONCLUSION: 1. No acute cardiopulmonary disease. Meng Gatica MD Objective Remarks General: NAD, AAOx3 Chest: CTA Cardiac: Regular Abd: +BS, soft ND/NT Ext: Bilateral feet are bandaged which are c/d/i, RLE edema improving, increased warmth to the RLE A/P Problem List: (1) Foot osteomyelitis ICD Codes: M86.9 - Osteomyelitis, unspecified Status: Acute Plan: Osteomyelitis Right foot Cellulitis BLE - This is a 57 year old male patient with DM, HTN and GERD. 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 Frausto for concerns of OM of right foot. Patient reports that he started working at [employer] 03/29/17 which is a job that required walking and lifting, he then started to have blisters. Toward the end of March patient noticed that his left foot opened up then about a week later patient's right foot opened. Then patient's feet began to drain. Patient also had rigors which started last Tuesday and then night sweats Tuesday night. Tuesday night the patient noticed that his sock was covered in blood and his 3rd and 4th toes started to have a change in color. Patient has taken clindamycin and dicloxacillin. Patient was started on Dicloxacillin by patient's PCP Dr. Coker after reviewing results of wound culture. - C reactive protein 21.10 - ESR 100 - MRI Left foot: Evidence of cellulitis in the plantar soft tissue about the 4th metatarsal bone. No MR evidence of osteomyelitis. No signal abnormalities and no abnormal enhancement within the osseous structure of the forefoot or midfoot. - MRI R foot: No evidence of cellulitis plantar soft tissue with some enhancing soft tissue extending to the interdigital space between the 2nd and 4th digits. There is definite signal abnormality in the marrow of the proximal phalanx of the 3rd and 4th digits and possible subtle abnormality in the proximal phalanx of the 2nd digit, suspicious for osteomyelitis. - Podiatry is following - Pt underwent left foot ulcer excisional sharp debridement, right 3rd digit amputation, 2nd and 4th proximal phalanx base bone biopsy, and I&D right foot - Pt was given Vanco and Zosyn in the ER - Wound cultures are growing MRSA, Enterococcus faecalis, and Group B beta strep from the surface cultures on 05/10 - Surgical cultures (05/11) are growing Enterococcus faecalis, Haemophilus, and Pseudomonas. - ID following - Pathology from right 4th phalanx indicating acute osteomyelitis - BC (05/10) with NGTD - Pt underwent successful retrograde revascularization of anterior tibial artery on 05/[address] Barnes - Pt was taken to the OR (05/18/17) by Dr. Valencia - Pt underwent right food transmetatarsal amputation with gastroc resection and left foot debridement and irrigation with graft placement - intraoperative cultures --> pending - Vancomycin (05/10 - present) - zosyn (05/10 - present) - Pt will likely need PICC line placement - DVT prophylaxis - supportive care PAD - Pt previously had angioplasty to left SFA and left anterior tibial (09/2016 ) and angioplasty to right mid-SFA (11/2016) - Surgical report on 05/11 noted right foot with poor blood flow - Cardiology is following - Pt underwent LE angiogram (05/13) --> Successful orbital rotational atherectomy and balloon angioplasty with drug-coated balloon of the severe stenosis within the peroneal vessel, occluded anterior tibial and posterior tibial arteries, and mild descending aortic atherosclerosis. - Pt recommended to continue on aggressive medical therapy. - Pt underwent repeat attempt at a retrograde approach in the anterior tibial to try to obtain better revascularization on 05/16 which was successful with noted peroneal artery widely patent and good two vessel runoff - ASA and Plavix resumed - Renal function is stable GERD - Continue home Omeprazole HTN - Continue home Lisinopril 40 mg PO daily - Monitor BP DM type 2 - SSI coverage - Accu checks ACHS - Diabetic diet Lower extremity edema - Lasix 40 mg PO BID - Potassium 20 mg PO BID DVT prophylaxis with SCDs (2) GERD (gastroesophageal reflux disease) ICD Codes: K21.9 - Gastro-esophageal reflux disease without esophagitis (3) Hypertension ICD Codes: I10 - Hypertension Status: Chronic (4) Diabetes ICD Codes: E11.9 - Diabetes Status: Acute Assessment and Plan Patient examined. Assessment and plan formulated with Diann Anaya PA-C. I agree with the above. Rhys Hassan DO May 19, 2017 13:12
--- NOTE | 2017-05-19 23:56 | HHI.PR ---
Subjective Remarks Patient seen bedside this evening. Denies any nausea vomiting fevers or chills. Denies calf pain. States she was concerned because Hemovac fell out of dressing. Is concerned there is sanguinous saturation to right lower dressing. Objective Vital Signs Date Time Temp Pulse Resp B/P (MAP) Pulse Ox O2 Delivery O2 Flow Rate FiO2 05/19/17 20:00 97.0 74 20 138/63 (88) 97 05/19/17 16:00 96.4 82 18 158/77 (104) 98 05/19/17 12:00 95.3 81 18 146/69 (94) 99 05/19/17 11:42 96 21 05/19/17 08:00 95.9 78 18 133/68 (89) 98 05/19/17 04:00 97.2 74 17 123/65 (84) 95 05/19/17 00:00 96.8 78 17 123/68 (86) 95 I/O 05/19/17 05/19/17 05/19/17 05/20/17 05/20/17 05/20/17 07:00 15:00 23:00 07:00 15:00 23:00 Intake Total 957.5 ml 1050 ml Output Total 600 ml 1000 ml Balance 357.5 ml 50 ml Intake Oral 240 ml 1050 ml IV Total 717.5 ml Output Urine Total 600 ml 1000 ml # Voids 1 # Bowel Movements 1 Result Diagram: 05/19/17 0629 05/19/17 0629 Imaging Last Impressions Foot X-Ray 05/18/17 0000 Signed Impressions: Service Date/Time: Thursday, May 18, 2017 19:08 - CONCLUSION: Status post transmetatarsal amputation on the right. Jeff Rao MD Foot MRI 05/10/17 0000 Signed Impressions: Service Date/Time: Wednesday, May 10, 2017 13:58 - CONCLUSION: 1. Evidence of cellulitis in the plantar soft tissues about the 4th metatarsal bone. 2. 3. No MR evidence for osteomyelitis: 4. No signal abnormalities and no abnormal enhancement within the osseous structures of the forefoot or midfoot. Adan Camargo MD Chest X-Ray 05/10/17 0000 Signed Impressions: Service Date/Time: Wednesday, May 10, 2017 12:57 - CONCLUSION: 1. No acute cardiopulmonary disease. Meng Gatica MD Procedures Postop day 1 Status post transmetatarsal amputation with gastroc recession to right lower extremity Status post debridement and irrigation with graft placement to left lower extremity Other Results Microbiology Date/Time Source Procedure Growth Status 05/10/17 12:28 Blood Peripheral Aerobic Blood Culture - Final NO GROWTH IN 5 DAYS Complete 05/10/17 12:28 Blood Peripheral Anaerobic Blood Culture - Final NO GROWTH IN 5 DAYS Complete 05/18/17 19:35 Wound Foot Acid Fast Stain Pending Received 05/18/17 19:35 Wound Foot Mycobacterial Culture Pending Received Objective Remarks Lower extremity physical exam: No change to physical exam since 05/18/17 Vascular: Dorsalis pedis palpable, posterior tibial palpable. Capillary refill time within normal limits to digits present to left foot. Edema present right foot and ankle Neuro: Gross sensation intact to bilateral lower extremity. Pinpoint sensation decreased. No hyperalgesia noted to bilateral lower extremity Dermatology: Incision site to right transmetatarsal amputation with skin well coapted and sutures in place. Capillary refill time to transmetatarsal amputation stump within normal limits and under 3 seconds. No fluctuance noted to transmetatarsal amputation site, no drainage upon compression. Posterior leg incision with skin were coapted and sutures intact. No surrounding erythema noted. No drainage noted. Left plantar ulcer with granular wound bed and graft in place. The leading borders noted to left plantar ulceration. No fluctuance noted to transmetatarsal amputation Musculoskeletal: Right transmetatarsal amputation. Range of motion to ankle noted to be increased Medications and IVs Current Medications Medications (Trade) Dose Ordered Sig/Jack Route Start Time Stop Time Status Last Admin (Lasix) 40 mg BID PO 05/10/17 21:00 (KCl) 20 meq BID PO 05/10/17 21:00 05/11/17 21:27 (NS Flush) 2 ml UNSCH PRN IV FLUSH 05/10/17 16:15 05/14/17 03:24 (NS Flush) 2 ml BID IV FLUSH 05/10/17 21:00 05/19/17 22:21 (Tylenol) 650 mg Q4H PRN PO 05/10/17 16:15 (Zofran Inj) 4 mg Q6H PRN IVP 05/10/17 16:15 (Narcan Inj) 0.4 mg UNSCH PRN IV PUSH 05/10/17 16:15 (Amie-Colace) 1 tab BID PO 05/10/17 21:00 05/19/17 22:18 (Milk Of Linnea Liq) 30 ml Q12H PRN PO 05/10/17 16:15 Pharmacy Profile Note 0 ml @ 0 mls/hr UNSCH OTHER 05/10/17 16:15 (D50w (Vial) Inj) 50 ml UNSCH PRN IV PUSH 05/10/17 16:30 (Glucagon Inj) 1 mg UNSCH PRN OTHER 05/10/17 16:30 (NovoLOG SUPPLEMENTAL SCALE) 1 ACHS SLIDING SCALE SQ 05/10/17 17:00 05/19/17 22:24 (Prinivil) 40 mg DAILY PO 05/11/17 09:00 05/19/17 08:47 (Protonix) 20 mg DAILY PO 05/11/17 09:00 05/19/17 08:46 Vancomycin HCl 1750 mg/Sodium Chloride 517.5 ml @ 250 mls/hr Q12H IV 05/10/17 22:00 05/19/17 22:18 (Restoril) 15 mg HS PRN PO 05/12/17 11:30 05/19/17 22:23 (Ecotrin Ec) 81 mg DAILY PO 05/12/17 12:15 05/19/17 08:47 (Plavix) 75 mg DAILY PO 05/12/17 12:15 05/19/17 08:47 (Lipitor) 40 mg DAILY PO 05/12/17 12:15 05/19/17 08:47 Piperacillin Sod/ Tazobactam Sod 100 ml @ 200 mls/hr Q6H IV 05/14/17 21:00 05/19/17 22:15 Sodium Chloride 1,000 ml @ 100 mls/hr Q10H IV 05/15/17 11:52 05/20/17 11:51 05/19/17 15:49 (Atropine Inj) 0.5 mg UNSCH PRN IV PUSH 05/16/17 17:00 (Vasotec Inj) 1.25 mg Q6H PRN IV PUSH 05/16/17 18:00 05/16/17 21:16 (Apresoline Inj) 20 mg Q1H PRN IV PUSH 05/16/17 19:15 (Catapres) 0.1 mg Q4H PRN PO 05/16/17 19:15 Lactated Ringer's 1,000 ml @ 30 mls/hr Q24H PRN IV 05/18/17 01:30 05/21/17 01:29 Sodium Chloride 500 ml @ 30 mls/hr [id number] PRN IV 05/18/17 01:30 05/21/17 01:29 (Betadine 5% Antisepsis Kit) 1 applic LUNCH COUNTER MANAGER PRN EACH NARE 05/18/17 01:30 05/21/17 01:29 (Chlorhexidine 2% Cloth) 3 pack LUNCH COUNTER MANAGER PRN TOPICAL 05/18/17 01:30 05/21/17 01:29 Miscellaneous Information SPECIFIC LAB TO BE DRAWN:VANCOMYCIN TROUGH DATE TO... ONCE ONCE .XX 05/20/17 09:45 05/20/17 09:46 Assessment and Plan Assessment and Plan 57-year-old male status post one-day right transmetatarsal amputation with gastroc recession and left foot debridement and irrigation with graft placement Patient evaluated and examined with all questions answered Appreciate vascular intervention as patient has great blood flow to bilateral lower extremity Right transmetatarsal amputation healing appropriately as well as left plantar foot ulcer Patient to remain nonweightbearing to right lower extremity and heel weightbearing to left lower extremity Please dispense bilateral postop shoes Once appropriate antibiotic recommendations have been made recommend the patient be discharged Would recommend at least 2 weeks of IV antibiotics Will await soft tissue culture results as well as bone micropathology Patient will need home health care upon discharge Patient will need to follow-up with myself, Dr. Joanna Valencia within 1 week of discharge, patient made aware to make appointment for Tuesday. Joanna Valencia DPM May 19, 2017 23:56
[2017-05-20] VITALS: BP 145/69; PULSE 90; RESP 17; TEMP 96.9; O2SAT 97
--- NOTE | 2017-05-20 00:02 | HHI.FF ---
Face to Face Verification Diagnosis: (1) Foot osteomyelitis (2) Cellulitis and abscess Physical Therapy Order: Evaluate and Treat Instructions: Patient is to remain NWB to the right LE as he has plantar sutures and is at high risk for wound healing complications. Heel weight bearing in surgical shoe to left heel. Home Health Nursing Order: Wound care and dressing changes Instructions: Please perform dressing changes to right transmetatarsal amputation twice weekly consisting of adaptic, 4x4s, frank/cast padding (NO WEBRIL) and pj bandage. Please perform dressing changes to left plantar foot ulceration. There is a graft present therefore DO NOT REMOVE GRAFT. Please do not cleanse wound with any substance. Place adaptic, 4x4s, frank (NO WEBRIL) and pj to left foot. Please call surgeon, Dr. Valencia [phone] for any clarification on wound care. I have seen patient Edvin MengJr on 05/19/17. My clinical findings support the need for the requested home health care services because: Limited ability to care for self High risk of falls Infection w/ risk of complications I certify that my clinical findings support that this patient is homebound because: Post-op weakness Unsteady gait/balance Joanna Valencia DPM May 20, 2017 00:02
[2017-05-20] MEDS: PIPERACIL-TAZO 4.5 GM PREMIX 100 ML IV SCH ×4 (03:00→22:05)
[2017-05-20] MEDS: SODIUM CHLOR 0.9% 1000 ML INJ 1,000 ML IV SCH (03:01)
[2017-05-20 08:00] VITALS: BP 157/69; PULSE 76; RESP 17; TEMP 95.9; O2SAT 97
[2017-05-20] MEDS: SODIUM CHLORIDE 0.9% FLUSH 10 ML FLUSH IV FLUSH SCH ×2 (09:00→22:05)
[2017-05-20] MEDS: POTASSIUM CHLORIDE 20 MEQ CONTROLLED RELEASE TAB PO SCH ×2 (09:00→21:00)
[2017-05-20] MEDS: FUROSEMIDE 40 MG TAB PO SCH ×2 (09:00→21:00)
[2017-05-20] MEDS: LISINOPRIL 20 MG TAB PO SCH (09:23)
[2017-05-20] MEDS: ATORVASTATIN 40 MG TAB PO SCH (09:23)
[2017-05-20] MEDS: DOCUSATE SODIUM 50 MG/SENNA 8.6 MG TAB PO SCH ×2 (09:24→22:05)
[2017-05-20] MEDS: PANTOPRAZOLE SOD 20 MG DELAYED RELEASE TAB PO SCH (09:24)
[2017-05-20] MEDS: CLOPIDOGREL 75 MG TAB PO SCH (09:24)
[2017-05-20] MEDS: ASPIRIN EC 81 MG TABEC PO SCH (09:24)
[2017-05-20] MEDS: INSULIN ASPART SUPPLEMENTAL SCALE SQ SCH ×4 (09:25→22:15)
[2017-05-20 09:39] VITALS: O2SAT 97
[2017-05-20] MEDS ORDERED: PHARMACY ORDERED LAB ONE (09:45)
[2017-05-20 12:00] VITALS: BP 167/78; PULSE 95; RESP 17; TEMP 97.7; O2SAT 98
--- NOTE | 2017-05-20 14:49 | HHI.PR ---
Subjective Remarks Offers no new complaints looking forward to DC Objective Vitals Vital Signs Date Time Temp Pulse Resp B/P (MAP) Pulse Ox O2 Delivery O2 Flow Rate FiO2 05/20/17 12:00 97.7 95 17 167/78 (107) 98 05/20/17 09:39 97 05/20/17 08:00 95.9 76 17 157/69 (98) 97 05/20/17 00:00 96.9 90 17 145/69 (94) 97 05/19/17 20:00 97.0 74 20 138/63 (88) 97 05/19/17 16:00 96.4 82 18 158/77 (104) 98 Result Diagram: 05/19/17 0629 05/19/17 0629 Other Results Laboratory Tests Test 05/18/17 08:24 05/18/17 17:49 05/19/17 00:36 05/19/17 06:29 Creatinine 0.82 MG/DL 0.94 MG/DL Estimat Glomerular Filtration Rate 97 ML/MIN 83 ML/MIN Hemoglobin 8.5 GM/DL 8.5 GM/DL 9.0 GM/DL Hematocrit 24.4 % 24.9 % 25.7 % White Blood Count 10.1 TH/MM3 9.5 TH/MM3 Red Blood Count 2.74 MIL/MM3 2.83 MIL/MM3 Mean Corpuscular Volume 90.7 FL 90.8 FL Mean Corpuscular Hemoglobin 30.9 PG 31.8 PG Mean Corpuscular Hemoglobin Concent 34.1 % 35.0 % Red Cell Distribution Width 14.0 % 13.8 % Platelet Count 349 TH/MM3 351 TH/MM3 Mean Platelet Volume 7.0 FL 6.9 FL Neutrophils (%) (Auto) 83.6 % 79.3 % Lymphocytes (%) (Auto) 10.3 % 12.9 % Monocytes (%) (Auto) 5.3 % 6.8 % Eosinophils (%) (Auto) 0.2 % 0.4 % Basophils (%) (Auto) 0.6 % 0.6 % Neutrophils # (Auto) 8.4 TH/MM3 7.6 TH/MM3 Lymphocytes # (Auto) 1.0 TH/MM3 1.2 TH/MM3 Monocytes # (Auto) 0.5 TH/MM3 0.7 TH/MM3 Eosinophils # (Auto) 0.0 TH/MM3 0.0 TH/MM3 Basophils # (Auto) 0.1 TH/MM3 0.1 TH/MM3 CBC Comment DIFF FINAL DIFF FINAL Differential Comment Blood Urea Nitrogen 11 MG/DL Random Glucose 199 MG/DL Calcium Level 7.9 MG/DL Sodium Level 141 MEQ/L Potassium Level 3.9 MEQ/L Chloride Level 109 MEQ/L Carbon Dioxide Level 26.0 MEQ/L Anion Gap 6 MEQ/L Hemoglobin A1c 7.0 % Test 05/20/17 11:03 Vancomycin Level Trough 20.1 MCG/ML Imaging Last Impressions Foot X-Ray 05/18/17 0000 Signed Impressions: Service Date/Time: Thursday, May 18, 2017 19:08 - CONCLUSION: Status post transmetatarsal amputation on the right. Jeff Rao MD Foot MRI 05/10/17 0000 Signed Impressions: Service Date/Time: Wednesday, May 10, 2017 13:58 - CONCLUSION: 1. Evidence of cellulitis in the plantar soft tissues about the 4th metatarsal bone. 2. 3. No MR evidence for osteomyelitis: 4. No signal abnormalities and no abnormal enhancement within the osseous structures of the forefoot or midfoot. Adan Camargo MD Chest X-Ray 05/10/17 0000 Signed Impressions: Service Date/Time: Wednesday, May 10, 2017 12:57 - CONCLUSION: 1. No acute cardiopulmonary disease. Meng Gatica MD Objective Remarks General: NAD, AAOx3 Chest: CTA Cardiac: Regular Abd: +BS, soft ND/NT Ext: Bilateral feet are bandaged which are c/d/i, RLE edema improving, increased warmth to the RLE A/P Problem List: (1) Foot osteomyelitis ICD Codes: M86.9 - Osteomyelitis, unspecified Status: Acute Plan: Osteomyelitis Right foot Cellulitis BLE - This is a 57 year old male patient with DM, HTN and GERD. 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 Patient reports that he started working at [employer] 03/29/17 which is a job that required walking and lifting, he then started to have blisters. Toward the end of March patient noticed that his left foot opened up then about a week later patient's right foot opened. Then patient's feet began to drain. Patient also had rigors which started last Tuesday and then night sweats Tuesday night. Tuesday night the patient noticed that his sock was covered in blood and his 3rd and 4th toes started to have a change in color. Patient has taken clindamycin and dicloxacillin. Patient was started on Dicloxacillin by patient's PCP Dr. Coker after reviewing results of wound culture. - C reactive protein 21.10 - ESR 100 - MRI Left foot: Evidence of cellulitis in the plantar soft tissue about the 4th metatarsal bone. No MR evidence of osteomyelitis. No signal abnormalities and no abnormal enhancement within the osseous structure of the forefoot or midfoot. - MRI R foot: No evidence of cellulitis plantar soft tissue with some enhancing soft tissue extending to the interdigital space between the 2nd and 4th digits. There is definite signal abnormality in the marrow of the proximal phalanx of the 3rd and 4th digits and possible subtle abnormality in the proximal phalanx of the 2nd digit, suspicious for osteomyelitis. - Podiatry is following - Pt underwent left foot ulcer excisional sharp debridement, right 3rd digit amputation, 2nd and 4th proximal phalanx base bone biopsy, and I&D right foot - Pt was given Vanco and Zosyn in the ER - Wound cultures are growing MRSA, Enterococcus faecalis, and Group B beta strep from the surface cultures on 05/10 - Surgical cultures (05/11) are growing Enterococcus faecalis, Haemophilus, and Pseudomonas. - ID following last seen (05/14) - (05/20) request ID to reevaluate and give DC abx recommendations - Pathology from right 4th phalanx indicating acute osteomyelitis - BC (05/10) with NGTD - Pt underwent successful retrograde revascularization of anterior tibial artery on 05/[address] Barnes - Pt was taken to the OR (05/18/17) by Dr. Valencia - Pt underwent right food transmetatarsal amputation with gastroc resection and left foot debridement and irrigation with graft placement (05/18) - intraoperative cultures --> pending - Vancomycin (05/10 - present) - zosyn (05/10 - present) - awaiting further recommendations per ID - Per Podatry: Patient to remain nonweightbearing to right lower extremity and heel weightbearing to left lower extremity Once appropriate antibiotic recommendations have been made recommend the patient be discharged Will await soft tissue culture results as well as bone micropathology Patient will need to follow-up with myself, Dr. Joanna Valencia within 1 week of discharge, patient made aware to make appointment for Tuesday. - DVT prophylaxis - supportive care PAD - Pt previously had angioplasty to left SFA and left anterior tibial (09/2016 ) and angioplasty to right mid-SFA (11/2016) - Surgical report on 05/11 noted right foot with poor blood flow - Cardiology is following - Pt underwent LE angiogram (05/13) --> Successful orbital rotational atherectomy and balloon angioplasty with drug-coated balloon of the severe stenosis within the peroneal vessel, occluded anterior tibial and posterior tibial arteries, and mild descending aortic atherosclerosis. - Pt recommended to continue on aggressive medical therapy. - Pt underwent repeat attempt at a retrograde approach in the anterior tibial to try to obtain better revascularization on 05/16 which was successful with noted peroneal artery widely patent and good two vessel runoff - ASA and Plavix resumed - Renal function is stable GERD - Continue home Omeprazole HTN - Continue home Lisinopril 40 mg PO daily - Monitor BP DM type 2 - SSI coverage - Accu checks ACHS - Diabetic diet Lower extremity edema - Lasix 40 mg PO BID - Potassium 20 mg PO BID DVT prophylaxis with SCDs (2) GERD (gastroesophageal reflux disease) ICD Codes: K21.9 - Gastro-esophageal reflux disease without esophagitis (3) Hypertension ICD Codes: I10 - Hypertension Status: Chronic (4) Diabetes ICD Codes: E11.9 - Diabetes Status: Acute Assessment and Plan Patient examined. Assessment and plan formulated with Micki Roger PA-C. I agree with the above. Await ID recommendations anticipate d/c to home with [facility] 05/20/17 Micki Roger May 20, 2017 14:49 Rhys Hassan DO May 20, 2017 15:28
[2017-05-20] MEDS: VANCOMYCIN INJ 1,500 MG in SODIUM CHLORID 0.9% 500 ML INJ 500 ML IV SCH (15:28)
--- NOTE | 2017-05-20 15:59 | HHI.IDPN ---
Subjective Subjective Remarks pt is s/p transmetatarsal amputation op clx negative @ 48 hrs Antibiotics [facility] Allergies: Coded Allergies: codeine (Verified Allergy, Severe, HIVES, 05/10/17) sulfamethoxazole (Verified Allergy, Severe, HIVES, 05/10/17) trimethoprim (Verified Allergy, Severe, HIVES, 05/10/17) Objective . Vital Signs Date Time Temp Pulse Resp B/P (MAP) Pulse Ox O2 Delivery O2 Flow Rate FiO2 05/20/17 12:00 97.7 95 17 167/78 (107) 98 05/20/17 12:00 97.7 95 17 167/78 (107) 98 05/20/17 09:39 97 05/20/17 08:00 95.9 76 17 157/69 (98) 97 05/20/17 00:00 96.9 90 17 145/69 (94) 97 05/19/17 20:00 97.0 74 20 138/63 (88) 97 05/19/17 16:00 96.4 82 18 158/77 (104) 98 05/20/17 05/20/17 05/21/17 15:00 23:00 07:00 Intake Total 100 ml 1000 ml Balance 100 ml 1000 ml IV Total 100 ml 1000 ml . Laboratory Tests Test 05/18/17 17:49 05/19/17 00:36 05/19/17 06:29 Hemoglobin 8.5 GM/DL 8.5 GM/DL 9.0 GM/DL Hematocrit 24.4 % 24.9 % 25.7 % White Blood Count 10.1 TH/MM3 9.5 TH/MM3 Red Blood Count 2.74 MIL/MM3 2.83 MIL/MM3 Mean Corpuscular Volume 90.7 FL 90.8 FL Mean Corpuscular Hemoglobin 30.9 PG 31.8 PG Mean Corpuscular Hemoglobin Concent 34.1 % 35.0 % Red Cell Distribution Width 14.0 % 13.8 % Platelet Count 349 TH/MM3 351 TH/MM3 Mean Platelet Volume 7.0 FL 6.9 FL Neutrophils (%) (Auto) 83.6 % 79.3 % Lymphocytes (%) (Auto) 10.3 % 12.9 % Monocytes (%) (Auto) 5.3 % 6.8 % Eosinophils (%) (Auto) 0.2 % 0.4 % Basophils (%) (Auto) 0.6 % 0.6 % Neutrophils # (Auto) 8.4 TH/MM3 7.6 TH/MM3 Lymphocytes # (Auto) 1.0 TH/MM3 1.2 TH/MM3 Monocytes # (Auto) 0.5 TH/MM3 0.7 TH/MM3 Eosinophils # (Auto) 0.0 TH/MM3 0.0 TH/MM3 Basophils # (Auto) 0.1 TH/MM3 0.1 TH/MM3 CBC Comment DIFF FINAL DIFF FINAL Differential Comment Laboratory Tests Test 05/19/17 06:29 Blood Urea Nitrogen 11 MG/DL Creatinine 0.94 MG/DL Random Glucose 199 MG/DL Calcium Level 7.9 MG/DL Sodium Level 141 MEQ/L Potassium Level 3.9 MEQ/L Chloride Level 109 MEQ/L Carbon Dioxide Level 26.0 MEQ/L Anion Gap 6 MEQ/L Estimat Glomerular Filtration Rate 83 ML/MIN Hemoglobin A1c 7.0 % Microbiology Date/Time Source Procedure Growth Status 05/18/17 19:35 Wound Foot Acid Fast Stain - Final NO ACID FAST BACILLI SEEN Resulted 05/18/17 19:35 Wound Foot Mycobacterial Culture Pending Resulted 05/18/17 19:35 Wound Foot Gram Stain - Final Resulted 05/18/17 19:35 Wound Foot Wound Culture - Preliminary NO GROWTH IN 48 HOURS. Resulted 05/18/17 19:35 Wound Foot Fungal Smear - Final NO FUNGAL ELEMENTS SEEN. Resulted 05/18/17 19:35 Wound Foot Fungal Culture Pending Resulted 05/18/17 19:35 Wound Foot Acid Fast Stain - Final NO ACID FAST BACILLI SEEN Resulted 05/18/17 19:35 Wound Foot Mycobacterial Culture Pending Resulted 05/18/17 19:35 Wound Foot Gram Stain - Final Resulted 05/18/17 19:35 Wound Foot Wound Culture - Preliminary NO GROWTH IN 48 HOURS. Resulted 05/18/17 17:35 Wound Foot Fungal Smear - Final NO FUNGAL ELEMENTS SEEN. 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 Jeff Rao MD Foot MRI 05/10/17 0000 Signed Impressions: Service Date/Time: Wednesday, May 10, 2017 13:58 - CONCLUSION: 1. Evidence of cellulitis in the plantar soft tissues about the 4th metatarsal bone. 2. 3. No MR evidence for osteomyelitis: 4. No signal abnormalities and no abnormal enhancement within the osseous structures of the forefoot or midfoot. Adan Camargo MD Chest X-Ray 05/10/17 0000 Signed Impressions: Service Date/Time: Wednesday, May 10, 2017 12:57 - CONCLUSION: 1. No acute cardiopulmonary disease. Meng Gatica MD Physical Exam CONSTITUTIONAL/GENERAL: This is an obese male patient, in no apparent distress. TUBES/LINES/DRAINS: SKIN: No jaundice, rashes, or lesions. Skin temperature appropriate. Not diaphoretic. CARDIOVASCULAR: Regular rate and rhythm without murmurs, gallops, or rubs. No JVD. Peripheral pulses symmetric. RESPIRATORY/CHEST: Symmetric, unlabored respirations. GASTROINTESTINAL: Abdomen soft, non-tender, nondistended. MUSCULOSKELETAL: Extremities without clubbing, cyanosis, or edema. No joint tenderness or effusion noted. No calf tenderness. No mottling or clubbing. L foot with dressing in place,minimal serosang d/c R foot sp TMA, dressin in place, intact NEUROLOGICAL: Awake and alert. Non focal Assessment & Plan Remarks DFI, osteo R foot -polimicrobial including MRSA, PSAE, enterococci and other m/o PVD R foot S/p successful retrograde revascularization of chronically occluded anterior tibial artery from dorsalis pedis approach on 05/17 change zosyn to levaquine cont vanco 6 weeks of abx OPAT PICC dw Hilary Ramos Dr, MD May 20, 2017 15:59
[2017-05-20 16:00] VITALS: BP 180/81; PULSE 92; RESP 17; TEMP 95.6; O2SAT 99
--- NOTE | 2017-05-20 16:16 | HHI.FF ---
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 [] May leave port accessed during therapy. [] May leave peripheral site accessed for duration of therapy. [x] If patient has SOB or respiratory distress, check oxygen saturation. If less than 90% or clinical signs of respiratory distress, administer oxygen at 2 L/min. via nasal cannula and notify physician. [x] Anaphylaxis/Reaction orders: * Stop infusion. * Keep IV line open with saline flush. * Notify physician. * Monitor vital signs every 15 minutes until symptoms resolve. * Check Oxygen saturation; Oxygen at 2 L/min. via nasal cannula if less than 90% or clinical signs of respiratory distress. * Administer diphenhydramine (Benadryl) 25 mg IV STAT, (unless patient has received as pre-med). May repeat once, if necessary. * Solu-Cortef 250 mg IVP over 30-60 seconds, use 100 mg vials for each dissolution. * Epinephrine (1mg/1 ml) 0.3 mg subcutaneously or IVP now with any signs of respiratory distress. * Check with physician for new additional pre-med orders if patient is re- challenged or re-treated. [x] May remove PICC line when treatment complete, after confirming with Physician. [x] If the patient is admitted to the hospital, the ED, or transferred via [facility] , complete transfer form including medication reconciliation order sheet. Laboratory Tests Weekly Labs: CBC w/diff, Creatinine, CRP, SED Rate, Vancomycin Trough Hilary Farrell MD May 20, 2017 16:16
[2017-05-20] MEDS ORDERED: LEVA750T9 PO (16:18)
--- NOTE | 2017-05-20 17:37 | RADRPT ---
EXAM DATE/TIME: 05/20/2017 17:14 [facility] COMPARISON: CHEST SINGLE AP, May 10, 2017, 12:57. INDICATIONS : Post PICC line placement MEDICAL HISTORY : Hypertension. Diabetes mellitus type 2. Arthritis. GERD. Neuropathy SURGICAL HISTORY : Strabismus correction ENCOUNTER: Initial ACUITY: 1 day PAIN SCORE: 0/10 LOCATION: Bilateral chest FINDINGS: A right-sided PICC line is noted, and the distal tip courses cephalad to the right neck in the expect ed location of the right internal jugular vein. The lungs are clear. Cardiomegaly. Left basilar atele ctasis. CONCLUSION: PICC line placement as above. Luis Felipe Curry MD on May 20, 2017 at 17:35 Board Certified Radiologist. This report was verified electronically.
--- NOTE | 2017-05-20 18:53 | RADRPT ---
EXAM DATE/TIME: 05/20/2017 18:01 [facility] COMPARISON: CHEST SINGLE AP, May 20, 2017, 17:14. INDICATIONS : Reposition PICC line. MEDICAL HISTORY : Hypertension. Diabetes mellitus type 2. Arthritis. GERD. Neuropathy. SURGICAL HISTORY : Strabismus correction. ENCOUNTER: Subsequent ACUITY: 2 weeks PAIN SCORE: 0/10 LOCATION: Bilateral chest FINDINGS: Right-sided PICC line has been repositioned and now has its tip in a good location within the superio r vena cava. Right basilar patchiness and left basilar streakiness are stable. CONCLUSION: Repositioning of right-sided PICC line which now has its tip in a good location within the superior v teddy cava. Right basilar patchiness and left basilar streakiness are stable. Jeff Rao MD on May 20, 2017 at 18:51 Board Certified Radiologist. This report was verified electronically.
[2017-05-20 20:00] VITALS: BP 171/76; PULSE 84; RESP 18; TEMP 96.8; O2SAT 97
[2017-05-20] MEDS: TEMAZEPAM 15 MG CAP PO PRN (22:15)
[2017-05-21] VITALS: BP 141/62; PULSE 88; RESP 18; TEMP 97; O2SAT 97
[2017-05-21] MEDS: PIPERACIL-TAZO 4.5 GM PREMIX 100 ML IV SCH ×3 (03:34→15:00)
[2017-05-21] MEDS: VANCOMYCIN INJ 1,500 MG in SODIUM CHLORID 0.9% 500 ML INJ 500 ML IV SCH ×2 (03:34→12:06)
[2017-05-21 08:00] VITALS: BP 176/83; PULSE 65; RESP 17; TEMP 95.6; O2SAT 97
[2017-05-21] MEDS: FUROSEMIDE 40 MG TAB PO SCH (09:00)
[2017-05-21] MEDS: POTASSIUM CHLORIDE 20 MEQ CONTROLLED RELEASE TAB PO SCH (09:00)
[2017-05-21] MEDS: DOCUSATE SODIUM 50 MG/SENNA 8.6 MG TAB PO SCH (09:10)
[2017-05-21] MEDS: CLOPIDOGREL 75 MG TAB PO SCH (09:10)
[2017-05-21] MEDS: ASPIRIN EC 81 MG TABEC PO SCH (09:11)
[2017-05-21] MEDS: PANTOPRAZOLE SOD 20 MG DELAYED RELEASE TAB PO SCH (09:11)
[2017-05-21] MEDS: ATORVASTATIN 40 MG TAB PO SCH (09:11)
[2017-05-21] MEDS: LISINOPRIL 20 MG TAB PO SCH (09:11)
[2017-05-21] MEDS: INSULIN ASPART SUPPLEMENTAL SCALE SQ SCH ×2 (09:13→12:07)
[2017-05-21] MEDS: SODIUM CHLORIDE 0.9% FLUSH 10 ML FLUSH IV FLUSH SCH (09:13)
[2017-05-21 10:11] VITALS: O2SAT 97
[2017-05-21] MEDS ORDERED: ATOR40TA16 PO (11:24)
--- NOTE | 2017-05-21 11:29 | HHI.DCPOC ---
Discharge Care Plan Diagnosis: (1) Foot osteomyelitis (2) PAD (peripheral artery disease) (3) Diabetes Goals to Promote Your Health * To prevent worsening of your condition and complications * To maintain your health at the optimal level Directions to Meet Your Goals Take your medications as prescribed Follow your dietary instruction Follow activity as directed Keep your appointments as scheduled Take your immunizations and boosters as scheduled If your symptoms worsen call your PCP, if no PCP go to Urgent Care Center or Emergency Room Smoking is Dangerous to Your Health. Avoid second hand smoke Call the 24-hour hour crisis hotline for domestic abuse at Micki Roger May 21, 2017 11:29 Rhys Hassan DO May 23, 2017 12:35
--- NOTE | 2017-05-21 11:30 | HHI.FF ---
Face to Face Verification Diagnosis: (1) Foot osteomyelitis (2) PAD (peripheral artery disease) (3) Diabetes Physical Therapy Order: Evaluate and Treat, Improve ambulation, Strength and gait training Occupational Therapy Order: Evaluate and Treat Home Health Nursing Order: Medical education Signs/symptoms of disease process Medication education-adverse effect Wound care and dressing changes Nursing assessment with vital signs IV medication administration I have seen patient Edvin Pepper Jr [employer] on 05/21/17. My clinical findings support the need for the requested home health care services because: Ltd mobility - disease progression High risk of falls I certify that my clinical findings support that this patient is homebound because: Unsteady gait/balance Micki Roger May 21, 2017 11:30 Rhys Hassan DO May 21, 2017 12:29
[2017-05-21 12:00] VITALS: BP 176/83; PULSE 74; RESP 17; TEMP 98; O2SAT 97
--- NOTE | 2017-05-21 12:05 | HHI.DS ---
Discharge Summary Admission Date May 10, 2017 at 14:26 Discharge Date: May 21, 2017 Admitting Diagnosis Osteomyelitis of bilateral feet. (1) Diabetic infection of right foot Diagnosis: Principal ICD Codes: E11.69 - Type 2 diabetes mellitus with other specified complication ; L08.9 - Local infection of the skin and subcutaneous tissue, unspecified (2) PVD (peripheral vascular disease) Diagnosis: Principal ICD Codes: I73.9 - Peripheral vascular disease, unspecified (3) GERD (gastroesophageal reflux disease) Diagnosis: Secondary ICD Codes: K21.9 - Gastro-esophageal reflux disease without esophagitis (4) Hypertension Diagnosis: Secondary ICD Codes: I10 - Hypertension Status: Chronic (5) Diabetes Diagnosis: Secondary ICD Codes: E11.9 - Diabetes Status: Acute Consultants Dr. Soto, Podiatry Dr. Crain, Cardiology Dr. Farrell, ID Procedures Pt underwent left foot ulcer excisional sharp debridement, right 3rd digit amputation, 2nd and 4th proximal phalanx base bone biopsy, and I&D right foot Pt underwent right food transmetatarsal amputation with gastroc resection and left foot debridement and irrigation with graft placement (05/18) Pt underwent LE angiogram (05/13) --> Successful orbital rotational atherectomy and balloon angioplasty with drug-coated balloon of the severe stenosis within the peroneal vessel, occluded anterior tibial and posterior tibial arteries, and mild descending aortic atherosclerosis. revascularization on 05/16 which was successful with noted peroneal artery widely patent and good two vessel runoff Brief History This is a 57 year old male patient with a past medical history which includes DM , HTN and GERD. Patient presents to the ER today after being sent by his memorial mason Dr. Frausto for concerns of OM of right foot. Patient reports that he started working at [employer] 03/29/17 which is a job that required walking and lifting, he then started to have blisters. Toward the end of March patient noticed that his left foot opened up then about a week later patient's right foot opened. Then patient's feet began to drain. Patient also had rigors which started last Tuesday and then night sweats Tuesday night. Tuesday night the patient noticed that his sock was covered in blood and his 3rd and 4th toes started to have a change in color. Patient has taken clindamycin and dicloxacillin. Patient was started on Dicloxacillin by patient's PCP Dr. Coker after reviewing results of wound culture. Patient reports minimal pain in his BLE as he has peripheral neuropathy. Patient's pain described as a dull ache. Patient denies N/V/D/C, fever. SOB or chest pain. CBC/BMP: 05/19/17 0629 05/19/17 0629 Significant Findings Laboratory Tests Test 05/18/17 17:49 05/19/17 00:36 05/19/17 06:29 05/20/17 11:03 Hemoglobin 8.5 GM/DL (13.0-17.0) 8.5 GM/DL (13.0-17.0) 9.0 GM/DL (13.0-17.0) Hematocrit 24.4 % (39.0-51.0) 24.9 % (39.0-51.0) 25.7 % (39.0-51.0) Red Blood Count 2.74 MIL/MM3 (4.50-5.90) 2.83 MIL/MM3 (4.50-5.90) Neutrophils (%) (Auto) 83.6 % (16.0-70.0) 79.3 % (16.0-70.0) Neutrophils # (Auto) 8.4 TH/MM3 (1.8-7.7) Mean Platelet Volume 6.9 FL (7.0-11.0) Random Glucose 199 MG/DL (74-106) Calcium Level 7.9 MG/DL (8.5-10.1) Chloride Level 109 MEQ/L (98-107) Estimat Glomerular Filtration Rate 83 ML/MIN (>89) Hemoglobin A1c 7.0 % (4.3-6.0) Vancomycin Level Trough 20.1 MCG/ML (5.0-10.0) Imaging Last Impressions Chest X-Ray 05/20/17 0000 Signed Impressions: Service Date/Time: Saturday, May 20, 2017 18:01 - CONCLUSION: Repositioning of right-sided PICC line which now has its tip in a good location within the superior vena cava. Right basilar patchiness and left basilar streakiness are stable. Jeff Rao MD Foot X-Ray 05/18/17 0000 Signed Impressions: Service Date/Time: Thursday, May 18, 2017 19:08 - CONCLUSION: Status post transmetatarsal amputation on the right. Jeff Rao MD Foot MRI 05/10/17 0000 Signed Impressions: Service Date/Time: Wednesday, May 10, 2017 13:58 - CONCLUSION: 1. Evidence of cellulitis in the plantar soft tissues about the 4th metatarsal bone. 2. 3. No MR evidence for osteomyelitis: 4. No signal abnormalities and no abnormal enhancement within the osseous structures of the forefoot or midfoot. Adan Camargo MD PE at Discharge General: NAD, AAOx3 Chest: CTA Cardiac: Regular Abd: +BS, soft ND/NT Ext: Bilateral feet are bandaged which are c/d/i, RLE edema improving, increased warmth to the RLE Hospital Course Osteomyelitis Right foot Cellulitis BLE - This is a 57 year old male patient with DM, HTN and GERD. - Patient presents to the ER today after being sent by his memorial mason Dr. Frausto for concerns of OM of right foot. Patient reports that he started working at [employer] 03/29/17 which is a job that required walking and lifting, he then started to have blisters. Toward the end of March patient noticed that his left foot opened up then about a week later patient's right foot opened. Then patient's feet began to drain. Patient also had rigors which started last Tuesday and then night sweats Tuesday night. Tuesday night the patient noticed that his sock was covered in blood and his 3rd and 4th toes started to have a change in color. Patient has taken clindamycin and dicloxacillin. Patient was started on Dicloxacillin by patient's PCP Dr. Coker after reviewing results of wound culture. - C reactive protein 21.10 - ESR 100 - MRI Left foot: Evidence of cellulitis in the plantar soft tissue about the 4th metatarsal bone. No MR evidence of osteomyelitis. No signal abnormalities and no abnormal enhancement within the osseous structure of the forefoot or midfoot. - MRI R foot: No evidence of cellulitis plantar soft tissue with some enhancing soft tissue extending to the interdigital space between the 2nd and 4th digits. There is definite signal abnormality in the marrow of the proximal phalanx of the 3rd and 4th digits and possible subtle abnormality in the proximal phalanx of the 2nd digit, suspicious for osteomyelitis. - Podiatry is following - Pt underwent left foot ulcer excisional sharp debridement, right 3rd digit amputation, 2nd and 4th proximal phalanx base bone biopsy, and I&D right foot - Pt was given Vanco and Zosyn in the ER - Wound cultures are growing MRSA, Enterococcus faecalis, and Group B beta strep from the surface cultures on 05/10 - Surgical cultures (05/11) are growing Enterococcus faecalis, Haemophilus, and Pseudomonas. - ID following last seen (05/14) - (05/20) request ID to reevaluate and give DC abx recommendations - Pathology from right 4th phalanx indicating acute osteomyelitis - BC (05/10) with NGTD - Pt underwent successful retrograde revascularization of anterior tibial artery on 05/[address] Barnes - Pt was taken to the OR (05/18/17) by Dr. Valencia - Pt underwent right food transmetatarsal amputation with gastroc resection and left foot debridement and irrigation with graft placement (05/18) - intraoperative cultures --> gram stain and wound culture No growth in 72 hours. fungal culture pending. No acid fast bacilli seen - Vancomycin (05/10 - present) - zosyn (05/10 - 05/20) changed to Levaquin PO per ID - ID recommending vanco IV and Levaquin PO for 6 weeks - Per Podatry: Patient to remain nonweightbearing to right lower extremity and heel weightbearing to left lower extremity Will await soft tissue culture results as well as bone micropathology Patient will need to follow-up with, Dr. Joanna Valencia within 1 week of discharge, patient made aware to make appointment for Tuesday. - DVT prophylaxis - supportive care PAD - Pt previously had angioplasty to left SFA and left anterior tibial (09/2016 ) and angioplasty to right mid-SFA (11/2016) - Surgical report on 05/11 noted right foot with poor blood flow - Cardiology is following - Pt underwent LE angiogram (05/13) --> Successful orbital rotational atherectomy and balloon angioplasty with drug-coated balloon of the severe stenosis within the peroneal vessel, occluded anterior tibial and posterior tibial arteries, and mild descending aortic atherosclerosis. - Pt recommended to continue on aggressive medical therapy. - Pt underwent repeat attempt at a retrograde approach in the anterior tibial to try to obtain better revascularization on 05/16 which was successful with noted peroneal artery widely patent and good two vessel runoff - ASA and Plavix resumed - Renal function is stable GERD - Continue home Omeprazole HTN - Continue home Lisinopril 40 mg PO daily - Monitor BP DM type 2 - SSI coverage - Accu checks ACHS - Diabetic diet Lower extremity edema - Lasix 40 mg PO BID - Potassium 20 mg PO BID DVT prophylaxis with SCDs while in hospital Per Podiatry recommendations: Patient to remain nonweightbearing to right lower extremity and heel weightbearing to left lower extremity with bilateral postop shoes. Patient lives at home with brother and brothers girlfriend. Reports that he has support at home. Offered SNF placement at time of DC. Patient feels that he has a lot of support at home and he would rather go home with [facility]. Update: patient has thought about DC more and now willing to go to SNF for rehab Pt Condition on Discharge: Stable Discharge Disposition: Discharge to SNF Discharge Instructions DIET: Follow Instructions for: Heart Healthy Diet, Diabetic Diet Activities you can perform: See Additionl Instruction Other Activity Instructions: Patient to remain nonweightbearing to right lower extremity and heel weightbearing to left lower extremity with bilateral postop shoes Follow up Referrals: Cardiology - [address] Barnes PCP Follow-up - [address] Coker Podiatry @ [facility] with Joanna Valencia DPM New Medications: Levofloxacin (Levaquin) 750 Mg Tablet 750 MG PO DAILY for Infection for 40 Days, #40 TAB 0 Refills Atorvastatin (Atorvastatin) 40 Mg Tab 40 MG PO DAILY for Cholesterol Management, #30 TAB 0 Refills Continued Medications: Aspirin (Aspirin) 81 Mg Chew 81 MG CHEW DAILY, TAB 0 Refills Clopidogrel (Plavix) 75 Mg Tab 75 MG PO DAILY for Blood Clot Prevention, #30 TAB 0 Refills Furosemide (Lasix) 40 Mg Tab 40 MG PO BID, #60 TAB 0 Refills Glipizide (Glipizide) 10 Mg Tab 10 MG PO DAILY for Blood Sugar Management, #30 TAB 0 Refills Take 30 minutes before a meal Lisinopril (Lisinopril) 40 Mg Tab 40 MG PO DAILY for Blood Pressure Management, #30 TAB 0 Refills Metformin (Metformin) 1,000 Mg Tab 1000 MG PO BIDPC for Blood Sugar Management, #60 TAB 0 Refills Omeprazole (Omeprazole) 20 Mg Tab 20 MG PO DAILY, #30 TAB 0 Refills Potassium Chloride ER (K-Tab) 20 Meq Tab 20 MEQ PO BID for Electrolyte Replacement, #60 TAB 0 Refills Discontinued Medications: Dicloxacillin (Dicloxacillin) 500 Mg Cap 500 MG PO QID for Infection, CAP 0 Refills Naproxen (Naproxen) 250 Mg Tab 250 MG PO BID PRN for pain, #60 TAB 0 Refills Naproxen Sodium (Aleve Arthritis) 220 Mg Tab 220 MG PO BID PRN for pain, TAB Additional Information Patient examined. Assessment and plan formulated with Micki Roger PA-C. I agree with the above. Micki Roger May 21, 2017 12:05 Rhys Hassan DO May 23, 2017 12:34
[2017-05-21 12:24] VITALS: BP 156/82; PULSE 86; RESP 17; O2SAT 98
--- NOTE | 2017-05-21 14:36 | HHI.PR ---
Subjective Remarks No new complaints. reports feeling well Objective Vitals Vital Signs Date Time Temp Pulse Resp B/P (MAP) Pulse Ox O2 Delivery O2 Flow Rate FiO2 05/21/17 12:24 86 17 156/82 (106) 98 05/21/17 12:00 98.0 74 17 176/83 (114) 97 05/21/17 10:11 97 05/21/17 08:00 95.6 65 17 176/83 (114) 97 05/21/17 00:00 97.0 88 18 141/62 (88) 97 05/20/17 20:00 96.8 84 18 171/76 (107) 97 05/20/17 16:00 95.6 92 17 180/81 (114) 99 Result Diagram: 05/19/1729 05/19/17 0629 Imaging Last Impressions Foot X-Ray 05/18/17 0000 Signed Impressions: Service Date/Time: Thursday, May 18, 2017 19:08 - CONCLUSION: Status post transmetatarsal amputation on the right. Jeff Rao MD Foot MRI 05/10/17 0000 Signed Impressions: Service Date/Time: Wednesday, May 10, 2017 13:58 - CONCLUSION: 1. Evidence of cellulitis in the plantar soft tissues about the 4th metatarsal bone. 2. 3. No MR evidence for osteomyelitis: 4. No signal abnormalities and no abnormal enhancement within the osseous structures of the forefoot or midfoot. Adan Camargo MD Chest X-Ray 05/10/17 0000 Signed Impressions: Service Date/Time: Wednesday, May 10, 2017 12:57 - CONCLUSION: 1. No acute cardiopulmonary disease. Meng Gatica MD Objective Remarks General: NAD, AAOx3 Chest: CTA Cardiac: Regular Abd: +BS, soft ND/NT Ext: Bilateral feet are bandaged which are c/d/i, RLE edema improving, increased warmth to the RLE Procedures Pt underwent left foot ulcer excisional sharp debridement, right 3rd digit amputation, 2nd and 4th proximal phalanx base bone biopsy, and I&D right foot Pt underwent right food transmetatarsal amputation with gastroc resection and left foot debridement and irrigation with graft placement (05/18) Pt underwent LE angiogram (05/13) --> Successful orbital rotational atherectomy and balloon angioplasty with drug-coated balloon of the severe stenosis within the peroneal vessel, occluded anterior tibial and posterior tibial arteries, and mild descending aortic atherosclerosis. revascularization on 05/16 which was successful with noted peroneal artery widely patent and good two vessel runoff A/P Problem List: (1) Foot osteomyelitis ICD Codes: M86.9 - Osteomyelitis, unspecified Status: Acute Plan: Hospital Course Osteomyelitis Right foot Cellulitis BLE - This is a 57 year old male patient with DM, HTN and GERD. 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 Frausto for concerns of OM of right foot. Patient reports that he started working at [employer] 03/29/17 which is a job that required walking and lifting, he then started to have blisters. Toward the end of March patient noticed that his left foot opened up then about a week later patient's right foot opened. Then patient's feet began to drain. Patient also had rigors which started last Tuesday and then night sweats Tuesday night. Tuesday night the patient noticed that his sock was covered in blood and his 3rd and 4th toes started to have a change in color. Patient has taken clindamycin and dicloxacillin. Patient was started on Dicloxacillin by patient's PCP Dr. Coker after reviewing results of wound culture. - C reactive protein 21.10 - ESR 100 - MRI Left foot: Evidence of cellulitis in the plantar soft tissue about the 4th metatarsal bone. No MR evidence of osteomyelitis. No signal abnormalities and no abnormal enhancement within the osseous structure of the forefoot or midfoot. - MRI R foot: No evidence of cellulitis plantar soft tissue with some enhancing soft tissue extending to the interdigital space between the 2nd and 4th digits. There is definite signal abnormality in the marrow of the proximal phalanx of the 3rd and 4th digits and possible subtle abnormality in the proximal phalanx of the 2nd digit, suspicious for osteomyelitis. - Podiatry is following - Pt underwent left foot ulcer excisional sharp debridement, right 3rd digit amputation, 2nd and 4th proximal phalanx base bone biopsy, and I&D right foot - Pt was given Vanco and Zosyn in the ER - Wound cultures are growing MRSA, Enterococcus faecalis, and Group B beta strep from the surface cultures on 05/10 - Surgical cultures (05/11) are growing Enterococcus faecalis, Haemophilus, and Pseudomonas. - ID following last seen (05/14) - (05/20) request ID to reevaluate and give DC abx recommendations - Pathology from right 4th phalanx indicating acute osteomyelitis - BC (05/10) with NGTD - Pt underwent successful retrograde revascularization of anterior tibial artery on 05/[address] Barnes - Pt was taken to the OR (05/18/17) by Dr. Valencia - Pt underwent right food transmetatarsal amputation with gastroc resection and left foot debridement and irrigation with graft placement (05/18) - intraoperative cultures --> gram stain and wound culture No growth in 72 hours. fungal culture pending. No acid fast bacilli seen - Vancomycin (05/10 - present) - zosyn (05/10 - 05/20) changed to Levaquin PO per ID - ID recommending vanco IV and Levaquin PO for 6 weeks - Per Podatry: Patient to remain nonweightbearing to right lower extremity and heel weightbearing to left lower extremity Will await soft tissue culture results as well as bone micropathology Patient will need to follow-up with, Dr. Joanna Valencia within 1 week of discharge, patient made aware to make appointment for Tuesday. - DVT prophylaxis - supportive care PAD - Pt previously had angioplasty to left SFA and left anterior tibial (09/2016 ) and angioplasty to right mid-SFA (11/2016) - Surgical report on 05/11 noted right foot with poor blood flow - Cardiology is following - Pt underwent LE angiogram (05/13) --> Successful orbital rotational atherectomy and balloon angioplasty with drug-coated balloon of the severe stenosis within the peroneal vessel, occluded anterior tibial and posterior tibial arteries, and mild descending aortic atherosclerosis. - Pt recommended to continue on aggressive medical therapy. - Pt underwent repeat attempt at a retrograde approach in the anterior tibial to try to obtain better revascularization on 05/16 which was successful with noted peroneal artery widely patent and good two vessel runoff - ASA and Plavix resumed - Renal function is stable GERD - Continue home Omeprazole HTN - Continue home Lisinopril 40 mg PO daily - Monitor BP DM type 2 - SSI coverage - Accu checks ACHS - Diabetic diet Lower extremity edema - Lasix 40 mg PO BID - Potassium 20 mg PO BID DVT prophylaxis with SCDs while in hospital Per Podiatry recommendations: Patient to remain nonweightbearing to right lower extremity and heel weightbearing to left lower extremity with bilateral postop shoes. Patient lives at home with brother and brothers girlfriend. Reports that he has support at home. Offered SNF placement at time of DC. Patient feels that he has a lot of support at home and he would rather go home with [facility]. Update: patient has thought about DC more and now willing to go to SNF for rehab. Case management working on DC arrangements (2) GERD (gastroesophageal reflux disease) ICD Codes: K21.9 - Gastro-esophageal reflux disease without esophagitis (3) Hypertension ICD Codes: I10 - Hypertension Status: Chronic (4) Diabetes ICD Codes: E11.9 - Diabetes Status: Acute Assessment and Plan Patient examined. Assessment and plan formulated with Micki Roger PA-C. I agree with the above. Problem Qualifiers (1) Foot osteomyelitis: Qualified Codes: M86.9 - Osteomyelitis, unspecified Micki Roger May 21, 2017 14:36 Rhys Hassan DO May 23, 2017 12:31
[2017-05-21 16:00] VITALS: BP 194/75; PULSE 92; RESP 17; TEMP 95.2; O2SAT 98
[2017-05-21] MEDS: ENALAPRILAT 1.25 MG/ML VIAL IV PUSH PRN (16:02)
[2017-05-22] MEDS ORDERED: PHARMACY ORDERED LAB ONE (01:45)
== END 2017-05-21 17:12 | disposition home health service (06) | DRG 271 ==
LOC: NEPC 11:47 → NEDA 14:26 → N07B 16:42
PROVIDERS: ADMIT Hospitalist; ATTEND Hospitalist
PROC: 0QBQ0ZX Excision of Right Toe Phalanx, Open Approach, Diagnostic (ICD-10-PCS; 2017-05-11)
PROC: 0HBMXZZ Excision of Right Foot Skin, External Approach (ICD-10-PCS; 2017-05-11)
PROC: 0J9Q0ZX Drainage of Right Foot Subcutaneous Tissue and Fascia, Open Approach, Diagnostic (ICD-10-PCS; 2017-05-11)
PROC: 0HBNXZZ Excision of Left Foot Skin, External Approach (ICD-10-PCS; 2017-05-11)
PROC: 0HBNXZZ Excision of Left Foot Skin, External Approach (ICD-10-PCS; 2017-05-11)
PROC: 047T3Z1 Dilation of Right Peroneal Artery using Drug-Coated Balloon, Percutaneous Approach (ICD-10-PCS; 2017-05-13)
PROC: B41D1ZZ Fluoroscopy of Aorta and Bilateral Lower Extremity Arteries using Low Osmolar Contrast (ICD-10-PCS; 2017-05-13)
PROC: 04CT3ZZ Extirpation of Matter from Right Peroneal Artery, Percutaneous Approach (ICD-10-PCS; principal; 2017-05-13 08:30)
PROC: 047P3ZZ Dilation of Right Anterior Tibial Artery, Percutaneous Approach (ICD-10-PCS; 2017-05-16)
PROC: 04CP3ZZ Extirpation of Matter from Right Anterior Tibial Artery, Percutaneous Approach (ICD-10-PCS; 2017-05-16)
PROC: 0Y6M0Z9 Detachment at Right Foot, Partial 1st Ray, Open Approach (ICD-10-PCS; 2017-05-18)
PROC: 0Y6M0ZB Detachment at Right Foot, Partial 2nd Ray, Open Approach (ICD-10-PCS; 2017-05-18)
PROC: 0HRNX74 Replacement of Left Foot Skin with Autologous Tissue Substitute, Partial Thickness, External Approach (ICD-10-PCS; 2017-05-18)
PROC: 0Y6M0ZC Detachment at Right Foot, Partial 3rd Ray, Open Approach (ICD-10-PCS; 2017-05-18)
PROC: 0Y6M0ZD Detachment at Right Foot, Partial 4th Ray, Open Approach (ICD-10-PCS; 2017-05-18)
PROC: 0Y6M0ZF Detachment at Right Foot, Partial 5th Ray, Open Approach (ICD-10-PCS; 2017-05-18)
PROC: 0L8V0ZZ Division of Right Foot Tendon, Open Approach (ICD-10-PCS; 2017-05-18)
DX: E11.52 Type 2 diabetes mellitus with diabetic peripheral angiopathy with gangrene (principal); I70.261 Atherosclerosis of native arteries of extremities with gangrene, right leg; M86.171 Other acute osteomyelitis, right ankle and foot; E11.42 Type 2 diabetes mellitus with diabetic polyneuropathy; E11.621 Type 2 diabetes mellitus with foot ulcer; L03.115 Cellulitis of right lower limb; L03.116 Cellulitis of left lower limb; L02.611 Cutaneous abscess of right foot; E11.69 Type 2 diabetes mellitus with other specified complication; L97.519 Non-pressure chronic ulcer of other part of right foot with unspecified severity; E11.65 Type 2 diabetes mellitus with hyperglycemia; L97.529 Non-pressure chronic ulcer of other part of left foot with unspecified severity; Z79.84 Long term (current) use of oral hypoglycemic drugs; K21.9 Gastro-esophageal reflux disease without esophagitis; I10 Essential (primary) hypertension; Z87.891 Personal history of nicotine dependence; Z83.3 Family history of diabetes mellitus; Z80.1 Family history of malignant neoplasm of trachea, bronchus and lung; Z87.442 Personal history of urinary calculi; I70.0 Atherosclerosis of aorta; B95.62 Methicillin resistant Staphylococcus aureus infection as the cause of diseases classified elsewhere; B95.2 Enterococcus as the cause of diseases classified elsewhere; B95.1 Streptococcus, group B, as the cause of diseases classified elsewhere; B96.3 Hemophilus influenzae [H. influenzae] as the cause of diseases classified elsewhere
CPT/HCPCS: 36247; 36569; 37229; 71045; 73630; 73720; 75625; 75710; 76937; 80048; 80053; 80202; 82565; 82948; 83036; 83735; 85002; 85014; 85018; 85025; 85347; 85610; 85652; 85730; 86140; 86403; 86850; 86900; 86901; 86920; 87015; 87040; 87070; 87077; 87102; 87116; 87147; 87184; 87186; 87205; 87206; 88305; 88307; 88311; 93005; 93923; 94150; 96365; 96367; 99152; 99153; A9579; C1714; C1725; C1751; C1769; C1893; C2623; J0131; J0153; J0360; J1580; J1644; J1815; J2250; J2370; J2405; J2543; J3010; J3370; J7030; J7040; J7050; L3260; Q9967